=== PATIENT | female | born 1970 | race Caucasian/White ===

== ENCOUNTER → 2017-11-02 | Outpatient (CLI) | payer BC ==
[~2017-11-02] MED LIST: ACHD5005 PO; CEPH500C PO; CITA-105 PO; CPR500T PO; CTLP20T PO; CYCL-97 PO; DEPOPROVERA SHOT; ESCI10TA PO; ESCI20TA38 PO; FENO150C3 PO; FENO40TA4 PO; HYDR-3583 PO; HYDR1TAB PO; INDERAL PO; KLONOPIN; MEDR150D8 IM; METF500T4 PO; NF-ESOM40C PO; NITR100C3 PO; ONDA-42 SL; ONDA4TAB11; ONDA8TAB13 PO; ONDA8TAB9 PO; PANT20TA PO; PANT20TA2 PO; PHEN200T27 PO; PROM25TA14 PO; PROP20TA23 PO; PROP20TA5 PO; PROP40TA5 PO; SCR1T PO; SUCR1ORA PO; SUCR1ORA5 PO; SUCR1TAB23 PO; TRAZ150T42 PO; TRZ100T PO
--- NOTE | 2017-11-02 10:51 | Diagnostic Imaging Report ---
INDICATION: COUGH/ SOB COMPARISON: 12/20/2015 FINDINGS: Frontal and lateral views of the chest demonstrate normal heart size and pulmonary vascularity. The lungs are clear. There are no signs of infiltrate, pleural effusions or pneumothoraces. The visualized osseous structures show no acute abnormalities. IMPRESSION: 1. No acute process. No signs of infiltrates, effusions or pneumothoraces. Dictated by: Dictated on workstation # [id number]
== END ==
LOC: RAD 10:26
PROVIDERS: ATTEND Nurse Practitioner Family
DX: R05 Cough (principal)
CPT/HCPCS: 71046

== ENCOUNTER 2017-11-03 14:15 | Emergency (ER) | payer BC ==
[~2017-11-03] VITALS: Ht 167.6 cm; Wt 133.4 kg
[~2017-11-03 14:15] MED LIST changes: -ONDA4TAB11
--- OUTSIDE RECORDS SUMMARY | 2017-11-03 14:28 | XMS REPORT | Continuity of Care Document ---
Author Author [facility] Organization [facility] Address Unknown Phone Unavailable Allergies Active Description Code Type Severity Reaction Onset Reported/Identified Relationship to Patient Clinical Status Yes No Known Drug Allergies [id number] Drug Allergy Unknown N/A 03/12/2010 Medications There is no data. Problems Date Dx Coded Attending Type Code Diagnosis Diagnosed By 06/11/2013 SAUL FRASER Ot 276.51 DEHYDRATION 06/11/2013 SAUL FRSAER Ot 574.20 CHOLELITHIASIS NOS 06/11/2013 SAUL FRASER Ot 599.0 URIN TRACT INFECTION NOS 06/11/2013 SAUL FRASER Ot 787.02 NAUSEA ALONE 06/11/2013 SAUL FRASER Ot 789.01 ABDOMINAL PAIN, RIGHT UPPER QUADRANT 06/15/2013 SANDY MOULTON, NANCY S Ot 276.8 HYPOPOTASSEMIA 06/15/2013 ROMÁNNDTEVIN DO NANCY S Ot 300.00 ANXIETY STATE NOS 06/15/2013 ROMÁNNDTEVIN DO, NANCY S Ot 311 DEPRESSIVE DISORDER NEC 06/15/2013 SANDY DO NANCY S Ot 401.9 HYPERTENSION NOS 06/15/2013 ROMÁNNDTEVIN DO NANCY S Ot 530.81 ESOPHAGEAL REFLUX 06/15/2013 ROMÁNNDTEVIN MOULTON NANCY S Ot 536.2 PERSISTENT VOMITING 06/15/2013 ORENDER DO, NANCY S Ot 573.8 LIVER DISORDERS NEC 06/15/2013 ROMÁNNDER DO, NANCY S Ot 574.20 CHOLELITHIASIS NOS 06/15/2013 ROMÁNNDER DO NANCY S Ot 593.9 RENAL URETERAL DIS NOS 10/22/2014 Ot 511.9 10/22/2014 Ot 805.4 10/22/2014 Ot E000.8 10/22/2014 Ot E030 10/22/2014 Ot E819.9 10/22/2014 KARTHIK DANIEL Ot 574.20 10/22/2014 TRUNGKARTHIK ARORA WHEAT BUYER Ot 789.06 10/28/2014 LEONORA CHAIREZ, SHAQUILLE Hahn Ot 599.0 URIN TRACT INFECTION NOS 10/28/2014 LEONORA CHAIREZ, SHAQUILLE Hahn Ot 787.01 NAUSEA WITH VOMITING 10/29/2014 Ot 511.9 10/29/2014 Ot 805.4 10/29/2014 Ot E000.8 10/29/2014 Ot E030 10/29/2014 Ot E819.9 10/29/2014 MARÍAKARTHIK WHEAT BUYER Ot 574.20 10/29/2014 MARÍAKARTHIK WHEAT BUYER Ot 789.06 10/30/2014 DINA GREEN MD Ot 530.11 REFLUX ESOPHAGITIS 10/30/2014 DINA GREEN MD Ot 535.40 OTH SPECIFIED GASTRITIS,W/O MENTION OF H 10/30/2014 DINA GREEN MD Ot 553.3 DIAPHRAGMATIC HERNIA 11/05/2014 NANCY DELGADO DO S Ot 276.0 HYPEROSMOLALITY 11/05/2014 NICOLE DELGADO DOLINE S Ot 276.8 HYPOPOTASSEMIA 11/05/2014 NICOLE DELGADO DOLINE S Ot 535.50 UNSP GASTRITIS GASTRODUODENITIS W/O ME 11/05/2014 NANCY DELGADO DO S Ot 536.2 PERSISTENT VOMITING 01/23/2015 JERALD CHAIREZ, PACO Hdz Ot V72.84 08/09/2015 MARÍAKARTHIK WHEAT BUYER Ot 574.20 08/09/2015 MARÍA KARTHIK Hdz WHEAT BUYER Ot 789.06 08/09/2015 JERALD CHAIREZ, PACO Hdz Ot V72.84 12/04/2015 KATE UMANZOR APRN Ot R07.89 OTHER CHEST PAIN 12/20/2015 PRABHJOT SEN MD Ot E11.9 TYPE 2 DIABETES MELLITUS WITHOUT COMPLIC 12/20/2015 PRABHJOT SEN MD Ot R10.13 EPIGASTRIC PAIN 12/20/2015 PRABHJOT SEN MD Ot R11.2 NAUSEA WITH VOMITING, UNSPECIFIED 12/20/2015 MARÍA KARTHIK Hdz WHEAT BUYER Ot 574.20 12/20/2015 MARÍA KARTHIK Hdz WHEAT BUYER Ot 789.06 12/20/2015 JERALD CHAIREZ, PACO Hdz Ot V72.84 12/22/2015 KATE UMANZOR SPINNING MACHINE OPERATOR Ot E11.9 TYPE 2 DIABETES MELLITUS WITHOUT COMPLIC 12/22/2015 KATE UMANZOR SPINNING MACHINE OPERATOR Ot K29.70 GASTRITIS, UNSPECIFIED, WITHOUT BLEEDING 12/22/2015 KATE UMANZOR SPINNING MACHINE OPERATOR Ot R53.81 OTHER MALAISE 12/22/2015 KATE UMANZOR SPINNING MACHINE OPERATOR Ot Z79.899 OTHER INSIDE BARREL POLISHER (CURRENT) DRUG THERAPY 12/23/2015 MCKINLEY CHAIREZ, PRABHJOT D Ot E11.9 12/23/2015 MCKINLEY CHAIREZ, PRABHJOT D Ot R10.13 12/23/2015 MCKINLEY CHAIREZ, PRABHJOT D Ot R11.2 12/30/2015 MARÍA KARTHIK M WHEAT BUYER Ot 574.20 12/30/2015 MARI DANIELSA Wilder WHEAT BUYER Ot 789.06 12/30/2015 JERALD CHAIREZ, PACO Hdz Ot V72.84 01/09/2016 KATE UMANZOR SPINNING MACHINE OPERATOR Ot E11.9 01/09/2016 KATE UMANZOR SPINNING MACHINE OPERATOR Ot K29.70 01/09/2016 KATE UMANZOR SPINNING MACHINE OPERATOR Ot R53.81 01/09/2016 KATE UMANZOR SPINNING MACHINE OPERATOR Ot Z79.899 01/09/2016 MARÍA KARTHIK M WHEAT BUYER Ot 574.20 01/09/2016 MARÍA KARTHIK Wilder WHEAT BUYER Ot 789.06 01/09/2016 JERALD CHAIREZ, PACO Hdz Ot V72.84 01/11/2016 JOHN STRONG APRN Ot K29.70 07/07/2016 KARTHIK DANIEL M WHEAT BUYER Ot 574.20 CHOLELITHIASIS NOS 07/07/2016 KARTHIK DANIEL WHEAT BUYER Ot 789.06 ABDOMINAL PAIN, EPIGASTRIC 07/07/2016 JERALD CHAIREZ, PACO Hdz Ot V72.84 EXAM PRE-OPERATIVE NOS 07/07/2016 JOHN STRONG SPINNING MACHINE OPERATOR Ot K29.70 GASTRITIS, UNSPECIFIED, WITHOUT BLEEDING Procedures Code Description Performed By Performed On 51.23 06/15/2013 Results There is no data. Encounters ACCT No. Visit Date/Time Discharge Status Pt. Type Provider Facility Loc./Unit Complaint [id number] 01/10/2016 06:44:00 01/10/2016 23:59:59 CLS Outpatient JOHN STRONG SPINNING MACHINE OPERATOR [facility] CARD NAUSEA,VOMITTING, GASTROPARESIS [id number] 12/22/2015 09:18:00 12/22/2015 12:53:00 DIS Emergency KATE UMANZOR APRN [facility] ER R ARM TINGLING [id number] 12/20/2015 18:11:00 12/20/2015 20:52:00 DIS Emergency PRABHJOT SEN MD [facility] ER ABD PAIN [id number] 12/04/2015 10:42:00 12/04/2015 14:24:00 DIS Emergency KATE UMANZOR APRN [facility] ER CHEST PAIN [id number] 11/03/2014 17:42:00 11/05/2014 17:45:00 DIS Inpatient NANCY DELGADO DO S [facility] SURGICAL INTRACTABLE NAUSEA,VOMITING;GASTRITIS [id number] 10/29/2014 17:45:00 10/30/2014 12:43:00 DIS Outpatient DINA GREEN MD [facility] EPIGASTRIC PAIN;NAUSEA AND VOMITING [id number] 10/29/2014 14:52:00 10/29/2014 23:59:59 CLS Outpatient PACO MARQUES MD [facility] PREOP NAUSEA; ABD. PAIN [id number] 10/28/2014 12:48:00 10/28/2014 18:45:00 DIS Emergency LEONORA CHAIREZ, SHAQUILLE Hahn [facility] ER VOMITING [id number] 06/13/2013 15:54:00 06/15/2013 10:37:00 DIS Inpatient KAYLEY DELGADO DOQUELINE S [facility] SURGICAL ACUTE CHOLECYSTITIS,ABD PAIN,INTRACTABLE NAUSEA,VO [id number] 06/11/2013 15:44:00 06/11/2013 20:43:00 DIS Emergency SAUL FRASER [facility] ER ABD PAIN [id number] 06/09/2013 08:49:00 06/09/2013 23:59:59 CLS Outpatient KARTHIK DANIEL [facility] RAD EPIGASTRIC PAIN [id number] 05/26/2013 13:42:00 05/26/2013 23:59:59 CLS Outpatient [id number] 03/22/2013 14:09:00 03/22/2013 23:59:59 CLS Outpatient [id number] 02/03/2013 08:59:00 02/03/2013 23:59:59 CLS Outpatient [id number] 10/22/2014 07:37:00 Document Registration [id number] 10/22/2014 07:37:00 Document Registration [id number] 10/02/2009 12:59:00 Document Registration
[2017-11-03] MEDS ORDERED: ONDA4TAB11 (14:55)
[2017-11-03] MEDS ORDERED: KETOROLAC 30 MG/ML VIAL IVP STA (15:33)
[2017-11-03] MEDS ORDERED: NS IV 1000 ML 1,000 ML IV ONE ×2 (15:33→17:04)
[2017-11-03] MEDS ORDERED: FAMOTIDINE 20MG/2ML IV (PEPCID) IV STA (15:33)
--- NOTE | 2017-11-03 15:42 | ED Abdominal Pain ---
General Chief Complaint: Abdominal/GI Problems Stated Complaint: GASTRITIS/N/V/D Nursing Triage Note: AMB TO ROOM REPORTS THAT HER PMH OF GASTRITIS IS FLARING UP [facility] YESTERDAY MEDS NOT HELPING Sepsis Screen: No Definite Risk Source of Information: Patient, Family Exam Limitations: No Limitations History of Present Illness Date Seen by Provider: Nov 03, 2017 Time Seen by Provider: 15:15 Initial Comments Here with report of abdominal pain that has been worse over the last 3 days. Complains of multiple episodes of nausea and vomiting and states that she's been unable to keep anything down. She was seen by [facility] yesterday and started on what appears to be Zofran or similar but states that she is not able to keep that down and has been vomiting that. States that she feels real weak and overall does not feel well. Timing/Duration: 2-3 Days Severity/Quality: Moderate, Aching, Cramping Location: Periumbilical Radiation: RUQ, LUQ Activities at Onset: None Modifying Factors: Worsens With Eating, Improves With Vomiting Associated Symptoms: No Back Pain, No Chest Pain, No Diaphoresis, Fever/Chills , Nausea/Vomiting, No Shortness of Air, No Weakness Allergies and Home Medications Allergies Coded Allergies: No Known Drug Allergies (Unverified , 03/12/10) Home Medications Escitalopram Oxalate 20 Mg Tablet, 20 MG PO DAILY, (Reported) Escitalopram Oxalate 10 Mg Tablet, Unknown Dose PO DAILY, (Reported) Fenofibrate 40 Mg Tablet, Unknown Dose PO DAILY, (Reported) Medroxyprogesterone Acet 150 Mg/Ml Disp.syrin, 150 MG IM EVERY 3 MONTHS, ( Reported) Metformin HCl 500 Mg Tablet, 500 MG PO DAILY, (Reported) Ondansetron 8 Mg Tab.rapdis, 8 MG PO Q8H PRN for NAUSEA, (Reported) Ondansetron 4 Mg Tab.rapdis, (Reported) Pantoprazole Sodium 20 Mg Tablet.dr, 40 MG PO BID, #60 Prescribed by: NANCY DELGADO on 11/05/14 1638 Promethazine HCl 25 Mg Tablet, 25 MG PO Q6H PRN for NAUSEA/VOMITING, #20 Prescribed by: KATE UMANZOR on 12/22/15 1239 Propranolol Hcl 40 Mg Tablet, 40 MG PO BID, (Reported) Sucralfate 1 G/10 Ml Oral.susp, 2 TSP PO QID, (Reported) Sucralfate 1 Gm/10 Ml Oral.susp, 1 GM PO QID, #400 Prescribed by: KATE UMANZOR on 12/22/15 1239 Trazodone Hcl 100 Mg Tablet, 300 MG PO HS, (Reported) TAKES 3 (100MG) TABLETS Review of Systems Constitutional: see HPI, No chills, No fever EENTM: No Symptoms Reported Respiratory: No Symptoms Reported Cardiovascular: No Symptoms Reported Gastrointestinal: See HPI, Abdominal Pain, Denies Diarrhea, Nausea, Vomiting Genitourinary: Denies Discharge, Pain Musculoskeletal: No back pain Skin: no symptoms reported Psychiatric/Neurological: No Symptoms Reported All Other Systems Reviewed Negative Unless Noted: Yes Past Xvxdsyf-Zfzqgl-Yvpery Hx Patient Social History Alcohol Use: Denies Use Recreational Drug Use: No Recent Foreign Travel: No Contact w/Someone Who Travel: No Recent Infectious Disease Expo: No Recent Hopitalizations: Yes Immunizations Up To Date Tetanus Booster (TDap): Unknown Seasonal Allergies Seasonal Allergies: No Surgeries History of Surgeries: Yes (wrist,knees.ankle) Surgeries: Adenoidectomy, Appendectomy, Gallbladder, Orthopedic, Tonsillectomy Respiratory History of Respiratory Disorde: No Cardiovascular History of Cardiac Disorders: No Neurological History of Neurological Disord: No Reproductive System Hx Reproductive Disorders: No Genitourinary Genitourinary Disorders: UTI-Chronic Gastrointestinal History of Gastrointestinal Di: No Musculoskeletal History of Musculoskeletal Dis: Yes Musculoskeletal Disorders: Arthritis Endocrine History of Endocrine Disorders: Yes Endocrine Disorders: Diabetes, Non-Insulin dep Cancer History of Cancer: No Psychosocial History of Psychiatric Problem: Yes Behavioral Health Disorders: Depression Integumentary History of Skin or Integumenta: No Blood Transfusions History of Blood Disorders: No Reviewed Nursing Assessment Reviewed/Agree w Nursing PMH: Yes Family Medical History Significant Family History: No Pertinent Family Hx Family Medial History: Asthma 19 MOTHER (BREAST CANCER) Physical Exam Vital Signs VS - Last 72 Hours, by Label 11/03/17 11/03/17 14:47 18:53 Temp 98.9 Pulse 71 72 Resp 18 18 B/P (MAP) 170/100 (123) Pulse Ox 98 Capillary Refill : Less Than 3 Seconds General Appearance: WD/WN, no apparent distress HEENT: PERRL/EOMI, pharynx normal Neck: full range of motion, supple Respiratory: lungs clear, normal breath sounds Cardiovascular: regular rate, rhythm, no murmur Peripheral Pulses: 2+ Dorsalis Pedis (R), 2+ Left Dors-Pedis (L), 2+ Radial Pulses (R), 2+ Radial Pulses (L) Gastrointestinal: non tender, soft Extremities: non-tender, normal inspection Back: normal inspection, no CVA tenderness, no vertebral tenderness Neurologic/Psychiatric: alert, oriented x 3 Skin: normal color, warm/dry Progress/Results/Core Measures Results/Orders Lab Results Laboratory Tests Test 11/03/17 15:37 11/03/17 15:43 Range/Units Urine Color YELLOW Urine Clarity SLIGHTLY CLOUDY Urine pH 8 5-9 Urine Specific [place] 1.010 L 1.016-1.022 Urine Protein 2+ H NEGATIVE Urine Glucose (UA) NEGATIVE NEGATIVE Urine Ketones 2+ H NEGATIVE Urine Nitrite NEGATIVE NEGATIVE Urine Bilirubin NEGATIVE NEGATIVE Urine Urobilinogen 4 H NORMAL MG/DL Urine Leukocyte Esterase 1+ H NEGATIVE Urine RBC (Auto) NEGATIVE NEGATIVE Urine RBC NONE /HPF Urine WBC 2-5 /HPF Urine Squamous Epithelial Cells 10-25 H /HPF Urine Crystals NONE /LPF Urine Bacteria MODERATE H /HPF Urine Casts NONE /LPF Urine Mucus SMALL H /LPF Urine Culture Indicated NO White Blood Count 9.0 4.3-11.0 10^3/uL Red Blood Count 5.33 4.35-5.85 10^6/uL Hemoglobin 14.8 11.5-16.0 G/DL Hematocrit 42 35-52 % Mean Corpuscular Volume 79 L 80-99 FL Mean Corpuscular Hemoglobin 28 25-34 PG Mean Corpuscular Hemoglobin Concent 35 32-36 G/DL Red Cell Distribution Width 13.8 10.0-14.5 % Platelet Count 382 130-400 10^3/uL Mean Platelet Volume 10.5 H 7.4-10.4 FL Neutrophils (%) (Auto) 68 42-75 % Lymphocytes (%) (Auto) 22 12-44 % Monocytes (%) (Auto) 10 0-12 % Eosinophils (%) (Auto) 0 0-10 % Basophils (%) (Auto) 0 0-10 % Neutrophils # (Auto) 6.1 1.8-7.8 X 10^3 Lymphocytes # (Auto) 2.0 1.0-4.0 X 10^3 Monocytes # (Auto) 0.9 0.0-1.0 X 10^3 Eosinophils # (Auto) 0.0 0.0-0.3 10^3/uL Basophils # (Auto) 0.0 0.0-0.1 10^3/uL Sodium Level 142 135-145 MMOL/L Potassium Level 3.6 3.6-5.0 MMOL/L Chloride Level 106 98-107 MMOL/L Carbon Dioxide Level 21 21-32 MMOL/L Anion Gap 15 H 5-14 MMOL/L Blood Urea Nitrogen 12 7-18 MG/DL Creatinine 0.76 0.60-1.30 MG/DL Estimat Glomerular Filtration Rate > 60 BUN/Creatinine Ratio 16 Glucose Level 119 H 70-105 MG/DL Calcium Level 9.4 8.5-10.1 MG/DL Magnesium Level 2.0 1.8-2.4 MG/DL Total Bilirubin 0.6 0.1-1.0 MG/DL Aspartate Amino Transf (AST/SGOT) 20 5-34 U/L Alanine Aminotransferase (ALT/SGPT) 26 0-55 U/L Alkaline Phosphatase 66 40-136 U/L Total Protein 7.6 6.4-8.2 GM/DL Albumin 4.5 3.2-4.5 GM/DL Amylase Level 26 25-125 U/L Lipase 11 8-78 U/L My Orders Orders - PRABHJOT SEN MD Amylase (11/03/17 15:33) Cbc With Automated Diff (11/03/17 15:33) Comprehensive Metabolic Panel (11/03/17 15:33) Lipase (11/03/17 15:33) Magnesium (11/03/17 15:33) Ua Culture If Indicated (11/03/17 15:33) Saline Lock/Iv-Start (11/03/17 15:33) Ns Iv 1000 Ml (Sodium Chloride 0.9%) (11/03/17 15:33) Ondansetron Injection (Zofran Injectio (11/03/17 15:45) Famotidine Injection (Pepcid Injection) (11/03/17 15:33) Ketorolac Injection (Toradol Injection) (11/03/17 15:33) Ns Iv 1000 Ml (Sodium Chloride 0.9%) (11/03/17 17:04) Ondansetron Injection (Zofran Injectio (11/03/17 17:15) Medications Given in ED Current Medications Medications Dose Ordered Sig/[place] Route Start Time Stop Time Status Last Admin Dose Admin Ondansetron HCl 4 mg ONCE ONCE IVP 11/03/17 15:45 11/03/17 15:46 DC 11/03/17 15:48 4 MG Ondansetron HCl 4 mg ONCE ONCE IVP 11/03/17 17:15 11/03/17 17:16 DC 11/03/17 17:12 4 MG Sodium Chloride 1,000 ml @ 0 mls/hr Q0M ONCE IV 11/03/17 15:33 11/03/17 15:36 DC 11/03/17 15:51 1,000 MLS/HR Sodium Chloride 1,000 ml @ 0 mls/hr Q0M ONCE IV 11/03/17 17:04 11/03/17 17:05 DC 11/03/17 17:12 1,000 MLS/HR Vital Signs/I&O Vital Sign - Last 12Hours 11/03/17 11/03/17 14:47 18:53 Temp 98.9 Pulse 71 72 Resp 18 18 B/P (MAP) 170/100 (123) Pulse Ox 98 Blood Pressure Mean: 123 Progress Note : Progress Note Seen and evaluated. IV, labs, UA, normal saline 1 L bolus, Zofran 4 mg IV, Pepcid 20 mg IV and Toradol 30 mg IV ordered. Monitor patient. Repeat normal saline 1 L bolus and Zofran 4 mg IV. Monitor patient. 1759: Patient had feels a little better although still has some nausea. Labs are reviewed and did not show any significant abnormality other urine has contamination and ketones. Overall no indication for admission nor is there any indication for CT currently. We did discuss several options and ultimately we will attempt outpatient therapy with follow-up here if not improving within the next 24 hours and/or follow up with her doctor in the next one to 2 days as needed. Work note for 2 days. Discharged home with return precautions. Patient verbalize understanding instructions and agreement with plan. Departure Impression Impression: Primary Impression: Nausea and vomiting Qualified Codes: R11.2 - Nausea with vomiting, unspecified Additional Impression: Upper abdominal pain Disposition: HOME, SELF-CARE Condition: Stable Departure-Patient Inst. Referrals: NANCY DELGADO DO (PCP/Family) Primary Care Physician Patient Instructions: Acute Abdomen (Belly Pain), Adult (DC), Nausea and Vomiting, Adult (DC) Add. Discharge Instructions: All discharge instructions reviewed with patient and/or family. Voiced understanding. Clear liquid diet for 24 hours and then advance as tolerated. Follow up with your Dr. in one to 2 days for recheck. Return here within the next 24 hours if not improving and or earlier if worsening. Return for worse pain, fever, vomiting, weakness, breathing problems or other concerns as needed. Work/School Note: Work Release Form Date Seen in the Emergency Department: Nov 03, 2017 Return to Work: Nov 06, 2017 Restrictions: No Restrictions Copy Copies To 1: NANCY DELGADO TIMOTHY D MD Nov 03, 2017 15:42
[2017-11-03 15:43] LABS: BILIRUBIN,URINE NEGATIVE (NEGATIVE); CLARITY,URINE SLIGHTLY CLOUDY; COLOR,URINE YELLOW; GLUCOSE, URINE (UA) NEGATIVE (NEGATIVE); KETONES,URINE 2+ (NEGATIVE); LEUKOCYTE ESTERASE ,URINE 1+ (NEGATIVE); NITRITE,URINE NEGATIVE (NEGATIVE); PH,URINE 8 (5-9); PROTEIN,URINE 2+ (NEGATIVE); UROBILINOGEN,URINE 4 MG/DL (NORMAL)
[2017-11-03] MEDS ORDERED: ONDANSETRON 4 MG/2 ML (SDV) Z0FRAN IVP ONE ×2 (15:45→17:15)
[2017-11-03 15:51] LABS: BASOPHILS % (AUTO) 0 % (0-10); EOSINOPHILS % (AUTO) 0 % (0-10); HEMATOCRIT 42 % (35-52); HEMOGLOBIN 14.8 G/DL (11.5-16.0); LYMPHOCYTES % (AUTO) 22 % (12-44); MEAN CORPUSCULAR HEMOGLOBIN 28 PG (25-34); MEAN CORPUSCULAR HGB CONC 35 G/DL (32-36); MEAN CORPUSCULAR VOLUME 79 FL (80-99); MEAN PLATELET VOLUME 10.5 FL (7.4-10.4); MONOCYTES # (AUTO) 0.9 X 10^3 (0.0-1.0); MONOCYTES % (AUTO) 10 % (0-12); NEUTROPHILS # (AUTO) 6.1 X 10^3 (1.8-7.8); NEUTROPHILS % (AUTO) 68 % (42-75); PLATELET COUNT 382 10^3/uL (130-400); RED BLOOD COUNT 5.33 10^6/uL (4.35-5.85); RED CELL DISTRIBUTION WIDTH 13.8 % (10.0-14.5)
[2017-11-03 15:54] LABS: BACTERIA,URINE MODERATE /HPF
[2017-11-03 16:09] LABS: ALANINE AMINOTRANSFERASE 26 U/L (0-55); ALBUMIN 4.5 GM/DL (3.2-4.5); ALKALINE PHOSPHATASE 66 U/L (40-136); AMYLASE 26 U/L (25-125); BILIRUBIN,TOTAL 0.6 MG/DL (0.1-1.0); BUN/CREATININE RATIO 16; CALCIUM 9.4 MG/DL (8.5-10.1); CARBON DIOXIDE 21 MMOL/L (21-32); CHLORIDE 106 MMOL/L (98-107); CREATININE SERUM 0.76 MG/DL (0.60-1.30); GFR ESTIMATED > 60; GLUCOSE 119 MG/DL (70-105); LIPASE 11 U/L (8-78); POTASSIUM 3.6 MMOL/L (3.6-5.0); SODIUM 142 MMOL/L (135-145); TOTAL PROTEIN 7.6 GM/DL (6.4-8.2)
[2017-11-03 18:53] VITALS: BP 176/118
== END 2017-11-03 18:52 | disposition home or self-care (01) ==
LOC: EDUNIT# 14:15 → ER 14:17
DX: R11.2 Nausea with vomiting, unspecified (principal); R10.11 Right upper quadrant pain; R10.12 Left upper quadrant pain; E11.9 Type 2 diabetes mellitus without complications; F32.9 Major depressive disorder, single episode, unspecified; Z80.3 Family history of malignant neoplasm of breast; Z87.440 Personal history of urinary (tract) infections; Z90.89 Acquired absence of other organs; Z90.49 Acquired absence of other specified parts of digestive tract; Z79.84 Long term (current) use of oral hypoglycemic drugs; Z87.19 Personal history of other diseases of the digestive system
CPT/HCPCS: 36415; 80053; 81000; 82150; 83690; 83735; 85025; 96361; 96374; 96375; 96376

== ENCOUNTER 2018-03-02 09:53 | Emergency (ER) | payer BC ==
[~2018-03-02] VITALS: Ht 167.6 cm; Wt 136.1 kg
[~2018-03-02 09:53] MED LIST changes: -METF500T4 PO; +METF500T5 PO; +ONDA4TAB11
--- OUTSIDE RECORDS SUMMARY | 2018-03-02 10:00 | XMS REPORT | Continuity of Care Document ---
Author Author [facility] Organization [facility] Address Unknown Phone Unavailable Allergies Active Description Code Type Severity Reaction Onset Reported/Identified Relationship to Patient Clinical Status Yes No Known Drug Allergies [id number] Drug Allergy Unknown N/A 03/12/2010 Medications There is no data. Problems Date Dx Coded Attending Type Code Diagnosis Diagnosed By 06/11/2013 SAUL FRASER Ot 276.51 DEHYDRATION 06/11/2013 SAUL FRASER Ot 574.20 CHOLELITHIASIS NOS 06/11/2013 SAUL FRASER Ot 599.0 URIN TRACT INFECTION NOS 06/11/2013 SAUL FRASER Ot 787.02 NAUSEA ALONE 06/11/2013 SAUL FRASER Ot 789.01 ABDOMINAL PAIN, RIGHT UPPER QUADRANT 06/15/2013 SANDY MOULTON, GLORIA S Ot 276.8 HYPOPOTASSEMIA 06/15/2013 ROMÁNNDTEVIN DO GLORIA S Ot 300.00 ANXIETY STATE NOS 06/15/2013 ROMÁNNDTEVIN DO, GLORIA S Ot 311 DEPRESSIVE DISORDER NEC 06/15/2013 SANDY DO GLORIA S Ot 401.9 HYPERTENSION NOS 06/15/2013 ROMÁNNDTEVIN DO GLORIA S Ot 530.81 ESOPHAGEAL REFLUX 06/15/2013 ROMÁNNDTEVIN MOULTON GLORIA S Ot 536.2 PERSISTENT VOMITING 06/15/2013 ORENDER DO, GLORIA S Ot 573.8 LIVER DISORDERS NEC 06/15/2013 ROMÁNNDER DO, GLORIA S Ot 574.20 CHOLELITHIASIS NOS 06/15/2013 ROMÁNNDER DO GLORIA S Ot 593.9 RENAL URETERAL DIS NOS 10/22/2014 Ot 511.9 10/22/2014 Ot 805.4 10/22/2014 Ot E000.8 10/22/2014 Ot E030 10/22/2014 Ot E819.9 10/22/2014 KARTHIK DANIEL Ot 574.20 10/22/2014 TRUNGKARTHIK ARORA PRIOR AUTHORIZATION NURSE Ot 789.06 10/28/2014 LEONORA CHAIREZ, SHAQUILLE Hahn Ot 599.0 URIN TRACT INFECTION NOS 10/28/2014 LEONORA CHAIREZ, SHAQUILLE Hahn Ot 787.01 NAUSEA WITH VOMITING 10/29/2014 Ot 511.9 10/29/2014 Ot 805.4 10/29/2014 Ot E000.8 10/29/2014 Ot E030 10/29/2014 Ot E819.9 10/29/2014 MARÍAKARTHIK PRIOR AUTHORIZATION NURSE Ot 574.20 10/29/2014 MARÍAKARTHIK PRIOR AUTHORIZATION NURSE Ot 789.06 10/30/2014 DINA GREEN MD Ot 530.11 REFLUX ESOPHAGITIS 10/30/2014 DINA GREEN MD Ot 535.40 OTH SPECIFIED GASTRITIS,W/O MENTION OF H 10/30/2014 DINA GREEN MD Ot 553.3 DIAPHRAGMATIC HERNIA 11/05/2014 GLORIA TEIXEIRA DO S Ot 276.0 HYPEROSMOLALITY 11/05/2014 NICOLE TEIXEIRA DOLINE S Ot 276.8 HYPOPOTASSEMIA 11/05/2014 NICOLE TEIXEIRA DOLINE S Ot 535.50 UNSP GASTRITIS GASTRODUODENITIS W/O ME 11/05/2014 GLORIA TEIXEIRA DO S Ot 536.2 PERSISTENT VOMITING 01/23/2015 JERALD CHAIREZ, PACO Hdz Ot V72.84 08/09/2015 MARÍAKARTHIK PRIOR AUTHORIZATION NURSE Ot 574.20 08/09/2015 MARÍA KARTHIK Hdz PRIOR AUTHORIZATION NURSE Ot 789.06 08/09/2015 JERALD CHAIREZ, PACO Hdz Ot V72.84 12/04/2015 KATE UMAZNOR APRN Ot R07.89 OTHER CHEST PAIN 12/20/2015 PRABHJOT SEN MD Ot E11.9 TYPE 2 DIABETES MELLITUS WITHOUT COMPLIC 12/20/2015 PRABHJOT SEN MD Ot R10.13 EPIGASTRIC PAIN 12/20/2015 PRABHJOT SEN MD Ot R11.2 NAUSEA WITH VOMITING, UNSPECIFIED 12/20/2015 MARÍA KARTHIK M PRIOR AUTHORIZATION NURSE Ot 574.20 12/20/2015 VANALINA, KARTHIK M PRIOR AUTHORIZATION NURSE Ot 789.06 12/20/2015 JERALD CHAIREZ, PACO Hdz Ot V72.84 12/22/2015 KATE UMANZOR CINDER WORKER Ot E11.9 TYPE 2 DIABETES MELLITUS WITHOUT COMPLIC 12/22/2015 KATE UMANZOR CINDER WORKER Ot K29.70 GASTRITIS, UNSPECIFIED, WITHOUT BLEEDING 12/22/2015 KATE UMANZOR CINDER WORKER Ot R53.81 OTHER MALAISE 12/22/2015 KATE UMANZOR CINDER WORKER Ot Z79.899 OTHER INVENTORY AUDITOR (CURRENT) DRUG THERAPY 12/23/2015 MCKINLEY CHAIREZ, PRABHJOT D Ot E11.9 12/23/2015 MCKINLEY CHAIREZ, PRABHJOT D Ot R10.13 12/23/2015 MCKINLEY CHAIREZ, PRABHJOT D Ot R11.2 12/30/2015 MARÍA KARTHIK M PRIOR AUTHORIZATION NURSE Ot 574.20 12/30/2015 VANALINA KARTHIK M PRIOR AUTHORIZATION NURSE Ot 789.06 12/30/2015 JERALD CHAIREZ, PACO Hdz Ot V72.84 01/09/2016 KATE UMANZOR CINDER WORKER Ot E11.9 01/09/2016 KATE UMANZOR CINDER WORKER Ot K29.70 01/09/2016 KATE UMANZOR CINDER WORKER Ot R53.81 01/09/2016 KATE UMANZOR CINDER WORKER Ot Z79.899 01/09/2016 VANALINA KARTHIK M PRIOR AUTHORIZATION NURSE Ot 574.20 01/09/2016 VANALINA KARTHIK M PRIOR AUTHORIZATION NURSE Ot 789.06 01/09/2016 JERALD CHAIREZ, PACO Hdz Ot V72.84 01/11/2016 JOHN STRONG CINDER WORKER Ot K29.70 07/07/2016 VANBECELAERE, KARTHIK M PRIOR AUTHORIZATION NURSE Ot 574.20 CHOLELITHIASIS NOS 07/07/2016 VANKRISSYELAEKARTHIK MANDEL M PRIOR AUTHORIZATION NURSE Ot 789.06 ABDOMINAL PAIN, EPIGASTRIC 07/07/2016 JERALD CHAIREZ, PACO Hdz Ot V72.84 EXAM PRE-OPERATIVE NOS 07/07/2016 JOHN STRONG CINDER WORKER Ot K29.70 GASTRITIS, UNSPECIFIED, WITHOUT BLEEDING 11/03/2017 BHAVNA BENITEZ CINDER WORKER Ot R05 COUGH 11/03/2017 BHAVNA BENITEZ R CINDER WORKER Ot R05 COUGH 11/03/2017 PRABHJOT SEN MD, Ot E11.9 TYPE 2 DIABETES MELLITUS WITHOUT COMPLIC 11/03/2017 PRABHJOT SEN MD, Ot F32.9 MAJOR DEPRESSIVE DISORDER, SINGLE EPISOD 11/03/2017 PRABHJOT SEN MD Ot R10.11 RIGHT UPPER QUADRANT PAIN 11/03/2017 PRABHJOT SEN MD Ot R10.12 LEFT UPPER QUADRANT PAIN 11/03/2017 PRABHJOT SEN MD Ot R11.2 NAUSEA WITH VOMITING, UNSPECIFIED 11/03/2017 PRABHJOT SEN MD, Ot Z79.84 LONGTERM (CURRENT) USE OF ORAL HYPOGLYC 11/03/2017 PRABHJOT SEN MD Ot Z80.3 FAMILY HISTORY OF MALIGNANT NEOPLASM OF 11/03/2017 PRABHJOT SEN MD Ot Z87.19 PERSONAL HISTORY OF OTHER DISEASES OF 11/03/2017 PRABHJOT SEN MD, Ot Z87.440 PERSONAL HISTORY OF URINARY (TRACT) INFE 11/03/2017 PRABHJOT SEN MD Ot Z90.49 ACQUIRED ABSENCE OF OTHER SPECIFIED PART 11/03/2017 PRABHJOT SEN MD Ot Z90.89 ACQUIRED ABSENCE OF OTHER ORGANS 11/05/2017 PRABHJOT SEN MD Ot E11.9 TYPE 2 DIABETES MELLITUS WITHOUT COMPLIC 11/05/2017 PRABHJOT SEN MD, Ot F32.9 MAJOR DEPRESSIVE DISORDER, SINGLE EPISOD 11/05/2017 PRABHJOT SEN MD Ot R10.11 RIGHT UPPER QUADRANT PAIN 11/05/2017 PRABHJOT SEN MD Ot R10.12 LEFT UPPER QUADRANT PAIN 11/05/2017 PRABHJOT SEN MD Ot R11.2 NAUSEA WITH VOMITING, UNSPECIFIED 11/05/2017 PRABHJOT SEN MD Ot Z79.84 INVENTORY AUDITOR (CURRENT) USE OF ORAL HYPOGLYC 11/05/2017 PRABHJOT SEN MD Ot Z80.3 FAMILY HISTORY OF MALIGNANT NEOPLASM OF 11/05/2017 PRABHJOT SEN MD Ot Z87.19 PERSONAL HISTORY OF OTHER DISEASES OF 11/05/2017 PRABHJOT SEN MD Ot Z87.440 PERSONAL HISTORY OF URINARY (TRACT) INFE 11/05/2017 PRABHJOT SEN MD Ot Z90.49 ACQUIRED ABSENCE OF OTHER SPECIFIED PART 11/05/2017 PRABHJOT SEN MD Ot Z90.89 ACQUIRED ABSENCE OF OTHER ORGANS 11/11/2017 BHAVNA BENITEZ CINDER WORKER Ot R05 COUGH 02/11/2018 SHAHBAZKRISSYKARTHIK ARORA PRIOR AUTHORIZATION NURSE Ot 574.20 CHOLELITHIASIS NOS 02/11/2018 MARÍA AKRTHIK Hdz PRIOR AUTHORIZATION NURSE Ot 789.06 ABDOMINAL PAIN, EPIGASTRIC 02/11/2018 JERALD CHAIREZ, PACO Hdz Ot V72.84 EXAM PRE-OPERATIVE NOS 02/11/2018 JOHN STRONG CINDER WORKER Ot K29.70 GASTRITIS, UNSPECIFIED, WITHOUT BLEEDING 02/11/2018 BHAVNA BENITEZ CINDER WORKER Ot R05 COUGH Procedures Code Description Performed By Performed On 51.23 LAPAROSCOPIC CHOLECYSTECTOMY 06/15/2013 Results Test Result Range Complete urinalysis with reflex to culture - 11/03/17 15:37 Urine color determination YELLOW NRG Urine clarity determination SLIGHTLY CLOUDY NRG Urine pH measurement by test strip 8 5-9 Specific gravity of urine by test strip 1.010 1.016- 1.022 Urine protein assay by test strip, semi-quantitative 2+ NEGATIVE Urine glucose detection by automated test strip NEGATIVE NEGATIVE Erythrocytes detection in urine sediment by light microscopy NEGATIVE NEGATIVE Urine ketones detection by automated test strip 2+ NEGATIVE Urine nitrite detection by test strip NEGATIVE NEGATIVE Urine total bilirubin detection by test strip NEGATIVE NEGATIVE Urine urobilinogen measurement by automated test strip (mass/volume) 4 mg/dL NORMAL Urine leukocyte esterase detection by dipstick 1+ NEGATIVE Automated urine sediment erythrocyte count by microscopy (number/high power field) NONE NRG Automated urine sediment leukocyte count by microscopy (number/high power field ) [HPF] NRG Bacteria detection in urine sediment by light microscopy MODERATE NRG Squamous epithelial cells detection in urine sediment by light microscopy 10-25 NRG Crystals detection in urine sediment by light microscopy NONE NRG Casts detection in urine sediment by light microscopy NONE NRG Mucus detection in urine sediment by light microscopy SMALL NRG Complete urinalysis with reflex to culture NO NRG Complete blood count (CBC) with automated white blood cell (WBC) differential - 11/03/17 15:43 Blood leukocytes automated count (number/volume) 9.0 10*3/uL 4.3-11.0 Blood erythrocytes automated count (number/volume) 5.33 10*6/uL 4.35-5.85 Venous blood hemoglobin measurement (mass/volume) 14.8 g/dL 11.5-16.0 Blood hematocrit (volume fraction) 42 % 35-52 Automated erythrocyte mean corpuscular volume 79 [foz_us] 80-99 Automated erythrocyte mean corpuscular hemoglobin (mass per erythrocyte) 28 pg 25-34 Automated erythrocyte mean corpuscular hemoglobin concentration measurement ( mass/volume) 35 g/dL 32-36 Automated erythrocyte distribution width ratio 13.8 % 10.0-14.5 Automated blood platelet count (count/volume) 382 10*3/uL 130-400 Automated blood platelet mean volume measurement 10.5 [foz_us] 7.4-10.4 Automated blood neutrophils/100 leukocytes 68 % 42-75 Automated blood lymphocytes/100 leukocytes 22 % 12-44 Blood monocytes/100 leukocytes 10 % 0-12 Automated blood eosinophils/100 leukocytes 0 % 0-10 Automated blood basophils/100 leukocytes 0 % 0-10 Blood neutrophils automated count (number/volume) 6.1 10*3 1.8-7.8 Blood lymphocytes automated count (number/volume) 2.0 10*3 1.0-4.0 Blood monocytes automated count (number/volume) 0.9 10*3 0.0-1.0 Automated eosinophil count 0.0 10*3/uL 0.0-0.3 Automated blood basophil count (count/volume) 0.0 10*3/uL 0.0-0.1 Comprehensive metabolic panel - 11/03/17 15:43 Serum or plasma sodium measurement (moles/volume) 142 mmol/L 135-145 Serum or plasma potassium measurement (moles/volume) 3.6 mmol/L 3.6-5.0 Serum or plasma chloride measurement (moles/volume) 106 mmol/L 98-107 Carbon dioxide 21 mmol/L 21-32 Serum or plasma anion gap determination (moles/volume) 15 mmol/L 5-14 Serum or plasma urea nitrogen measurement (mass/volume) 12 mg/dL 7-18 Serum or plasma creatinine measurement (mass/volume) 0.76 mg/dL 0.60-1.30 Serum or plasma urea nitrogen/creatinine mass ratio 16 NRG Serum or plasma creatinine measurement with calculation of estimated glomerular filtration rate > NRG Serum or plasma glucose measurement (mass/volume) 119 mg/dL 70-105 Serum or plasma calcium measurement (mass/volume) 9.4 mg/dL 8.5-10.1 Serum or plasma total bilirubin measurement (mass/volume) 0.6 mg/dL 0.1-1.0 Serum or plasma alkaline phosphatase measurement (enzymatic activity/volume) 66 U/L 40-136 Serum or plasma aspartate aminotransferase measurement (enzymatic activity/ volume) 20 U/L 5-34 Serum or plasma alanine aminotransferase measurement (enzymatic activity/volume ) 26 U/L 0-55 Serum or plasma protein measurement (mass/volume) 7.6 g/dL 6.4-8.2 Serum or plasma albumin measurement (mass/volume) 4.5 g/dL 3.2-4.5 Magnesium - 11/03/17 15:43 Magnesium 2.0 mg/dL 1.8-2.4 Serum or plasma amylase measurement (enzymatic activity/volume) - 11/03/17 15: 43 Serum or plasma amylase measurement (enzymatic activity/volume) 26 U /L 25-125 Lipase - 11/03/17 15:43 Lipase 11 U/L 8-78 Encounters ACCT No. Visit Date/Time Discharge Status Pt. Type Provider Facility Loc./Unit Complaint [id number] 11/03/2017 14:17:00 11/03/2017 18:52:00 DIS Emergency PRABHJOT SEN MD [facility] ER GASTRITIS/N/V/D [id number] 11/02/2017 10:26:00 11/02/2017 23:59:59 CLS Outpatient BHAVNA BENITEZ CINDER WORKER [facility] RAD COUGH,SOB [id number] 01/10/2016 06:44:00 01/10/2016 23:59:59 CLS Outpatient JOHN STRONG [employer]INDER WORKER [facility] CARD NAUSEA,VOMITTING, GASTROPARESIS [id number] 12/22/2015 09:18:00 12/22/2015 12:53:00 DIS Emergency KATE UMANZOR [employer]INDER WORKER [facility] ER R ARM [place] [id number] 12/20/2015 18:11:00 12/20/2015 20:52:00 DIS Emergency PRABHJOT SEN MD [facility] ER ABD PAIN [id number] 12/04/2015 10:42:00 12/04/2015 14:24:00 DIS Emergency KATE UMANZOR APRN [facility] ER CHEST PAIN [id number] 11/03/2014 17:42:00 11/05/2014 17:45:00 DIS Inpatient ORENDER DO, GLORIA S [facility] SURGICAL INTRACTABLE NAUSEA,VOMITING;GASTRITIS [id number] 10/29/2014 17:45:00 10/30/2014 12:43:00 DIS [facility];NAUSEA AND VOMITING [id number] 10/29/2014 14:52:00 10/29/2014 23:59:59 CLS Outpatient PACO MARQUES MD [facility] PREOP NAUSEA; ABD. PAIN [id number] 10/28/2014 12:48:00 10/28/2014 18:45:00 DIS Emergency SHAQUILLE LEA MD [facility] ER VOMITING [id number] 06/13/2013 15:54:00 06/15/2013 10:37:00 DIS Inpatient RAYER DO, GLORIA S [facility] SURGICAL ACUTE CHOLECYSTITIS,ABD PAIN,INTRACTABLE NAUSEA,VO [id number] 06/11/2013 15:44:00 06/11/2013 20:43:00 DIS Emergency SAUL FRASER [facility] ER ABD PAIN [id number] 06/09/2013 08:49:00 06/09/2013 23:59:59 CLS Outpatient KARTHIK DANIEL [facility] RAD EPIGASTRIC PAIN [id number] 05/26/2013 13:42:00 05/26/2013 23:59:59 CLS Outpatient [id number] 03/22/2013 14:09:00 03/22/2013 23:59:59 CLS Outpatient [id number] 02/03/2013 08:59:00 02/03/2013 23:59:59 CLS Outpatient [id number] 10/22/2014 07:37:00 Document Registration [id number] 10/22/2014 07:37:00 Document Registration [id number] 10/02/2009 12:59:00 Document Registration 05/24/18 01/18/2018 15:30:47 01/18/2018 23:59:59 CLS Outpatient Gloria Teixeira
[2018-03-02] MEDS ORDERED: NS IV 1000 ML 1,000 ML IV ONE (10:42)
[2018-03-02] MEDS ORDERED: ONDANSETRON 4 MG/2 ML (SDV) Z0FRAN IVP ONE (10:45)
[2018-03-02 10:50] LABS: BASOPHILS % (AUTO) 0 % (0-10); EOSINOPHILS % (AUTO) 0 % (0-10); HEMATOCRIT 44 % (35-52); HEMOGLOBIN 15.6 G/DL (11.5-16.0); LYMPHOCYTES % (AUTO) 20 % (12-44); MEAN CORPUSCULAR HEMOGLOBIN 28 PG (25-34); MEAN CORPUSCULAR HGB CONC 35 G/DL (32-36); MEAN CORPUSCULAR VOLUME 78 FL (80-99); MONOCYTES # (AUTO) 0.8 X 10^3 (0.0-1.0); MONOCYTES % (AUTO) 8 % (0-12); NEUTROPHILS # (AUTO) 7.2 X 10^3 (1.8-7.8); NEUTROPHILS % (AUTO) 72 % (42-75); PLATELET COUNT 386 10^3/uL (130-400); RED BLOOD COUNT 5.65 10^6/uL (4.35-5.85); RED CELL DISTRIBUTION WIDTH 14.2 % (10.0-14.5); WHITE BLOOD COUNT 9.9 10^3/uL (4.3-11.0)
[2018-03-02 11:12] LABS: ALANINE AMINOTRANSFERASE 24 U/L (0-55); ALBUMIN 4.7 GM/DL (3.2-4.5); ALKALINE PHOSPHATASE 69 U/L (40-136); BILIRUBIN,TOTAL 1.1 MG/DL (0.1-1.0); BUN/CREATININE RATIO 15; CALCIUM 9.9 MG/DL (8.5-10.1); CARBON DIOXIDE 20 MMOL/L (21-32); CHLORIDE 107 MMOL/L (98-107); GFR ESTIMATED > 60; GLUCOSE 144 MG/DL (70-105); LIPASE 15 U/L (8-78); POTASSIUM 3.5 MMOL/L (3.6-5.0); SODIUM 140 MMOL/L (135-145); TOTAL PROTEIN 7.6 GM/DL (6.4-8.2)
[2018-03-02] MEDS ORDERED: fentaNYL INJECTION 100 MCG/2 ML AMP IVP ONE ×2 (11:15→12:45)
[2018-03-02 11:28] LABS: BILIRUBIN,URINE NEGATIVE (NEGATIVE); CLARITY,URINE SLIGHTLY CLOUDY; COLOR,URINE YELLOW; GLUCOSE, URINE (UA) NEGATIVE (NEGATIVE); KETONES,URINE 2+ (NEGATIVE); LEUKOCYTE ESTERASE ,URINE 1+ (NEGATIVE); NITRITE,URINE NEGATIVE (NEGATIVE); PH,URINE 8 (5-9); PROTEIN,URINE 1+ (NEGATIVE); UROBILINOGEN,URINE 4 MG/DL (NORMAL)
[2018-03-02 11:38] LABS: BACTERIA,URINE FEW /HPF
[2018-03-02 11:39] LABS: AMORPHOUS SEDIMENT,UR LARGE AMOR PHOSPHATE /LPF
[2018-03-02] MEDS ORDERED: CATHETER FLUSH 10 ML SYR IV PRN (13:15)
[2018-03-02] MEDS ORDERED: NS 250 ML (IVPB) BAG IV ONE (13:15)
[2018-03-02] MEDS ORDERED: IOHEXOL 350 MG/ML 100 ML (OMNIPAQUE 350) VIAL IV ONE (13:15)
--- NOTE | 2018-03-02 14:06 | Diagnostic Imaging Report ---
PROCEDURE: CT abdomen and pelvis with contrast. TECHNIQUE: Multiple contiguous axial images were obtained through the abdomen and pelvis after administration of intravenous contrast. INDICATION: Abdominal pain. Pre-CT abdomen/pelvis exam of 10/28/2014 failed to show any sign of an acute abnormality. On this study, the liver is homogeneous and not enlarged. The liver may be of a somewhat lower density than usually seen. This appearance does suggest fatty metamorphosis. The spleen, pancreas, adrenals, kidneys, aorta and inferior cava show no sign of an acute abnormality. The small benign-appearing nodule associated with the left adrenal gland seen previously is again evident and no different. Also as on the prior exam the gallbladder is surgically absent. The stomach is not well-distended and consequently difficult to assess. The images through the pelvis show that in the interval since the prior study a well-circumscribed 4.8 x 6.3 CM area of low density has developed in the left adnexa. Most likely this is a cyst arising from the left ovary. There is also a more complex low density lesion in the right adnexa measuring 4.0 x 4.6 MM. This too probably represents an ovarian cyst although it may be complicated by infection and/or hemorrhage. The uterus itself is generally unremarkable. There is diverticulosis of the sigmoid colon but there is no sign of an acute diverticulitis. The appendix is not well-visualized and appears to be surgically absent. The urinary bladder is grossly unremarkable. The bone windows show no sign of a fracture or of a destructive lesion. The lung bases are clear. There is no obvious breast mass. According to our records the patient has not had a mammogram. If the patient has had a recent (within the last year) mammogram elsewhere, then no further imaging will be necessary. However if the patient has not had a recent mammogram, mammography should be obtained. IMPRESSION: 1. In the interval since the prior exam bilateral ovaries cysts have developed. The cyst on the right appears to be slightly complicated by infection and/or hemorrhage. Ultrasound would be recommended for further evaluation of both these findings. 2. There is no acute abnormality of the abdomen or pelvis noted otherwise. 3. There is no obvious breast mass. Recommendations as above. Dictated by: Dictated on workstation # [id number]
[2018-03-02] MEDS ORDERED: KETOROLAC 30 MG/ML VIAL IVP ONE (14:45)
--- NOTE | 2018-03-02 15:39 | Diagnostic Imaging Report ---
INDICATION: Bilateral ovarian cysts noted on recent CT. TECHNIQUE: Multiple real-time grayscale images were obtained of the pelvis in various projections endovaginally. Transabdominal imaging was also performed. COMPARISON: Comparison is made with CT study from 03/02/2018. FINDINGS: The uterus measures 7.7 x 5.2 x 3.5 cm. Endometrium is 6 mm in thickness. No myometrial mass is identified. There is a complex cystic mass with internal septations involving the left ovary measuring 4.9 x 5.9 x 4.2 cm. This does correspond with the CT abnormality. The right adnexa also demonstrate complex septated cystic mass measuring 4.8 x 4.9 x 5.0 cm, also accounting for the CT abnormality. No free fluid is seen. IMPRESSION: Bilateral complex septated cystic masses involving the adnexa, corresponding with the CT abnormality. While these could represent complex ovarian cysts, possibility of cystic neoplasm cannot be entirely excluded. If no surgical intervention is performed, close follow-up to confirm stability is recommended. Dictated by: Dictated on workstation # [id number]
[2018-03-02] MEDS ORDERED: CEPH-507 PO (16:08)
[2018-03-02] MEDS ORDERED: HYDR-3812 PO (16:08)
[2018-03-02] MEDS ORDERED: ONDA4TAB8 SL (16:08)
--- NOTE | 2018-03-02 16:09 | ED Abdominal Pain ---
General Chief Complaint: Abdominal/GI Problems Stated Complaint: ABD PAIN Nursing Triage Note: ARRIVED VIA AMB TO ROOM 05 WITH COMPLAINTS OF GASTRITIS SINCE WEDNESDAY. N/V/D. Sepsis Screen: No Definite Risk Source of Information: Patient, Old Records Exam Limitations: No Limitations History of Present Illness Date Seen by Provider: March 02, 2018 Time Seen by Provider: 10:43 Initial Comments This 47-year-old woman presents to the emergency room with nausea, vomiting and diarrhea since Wednesday. She also reports excessive belching. She was seen in November for similar symptoms. She currently takes Protonix. She denies and takes Depo-Provera. She denies any blood in her emesis or stool. She has diffuse tenderness to palpation which is greater in the lower quadrants. The diarrhea portion of her symptoms has only been present this morning. She is afebrile. Pain is fairly constant. She denies any constipation. She does have history of diverticulosis, gastritis, esophagitis and hiatal hernia. Allergies and Home Medications Allergies Coded Allergies: No Known Drug Allergies (Unverified , 03/12/10) Home Medications Cephalexin 500 Mg Capsule, 500 MG PO QID Prescribed by: SHAQUILLE ROSE on 03/02/18 1608 Escitalopram Oxalate 20 Mg Tablet, 20 MG PO DAILY, (Reported) Escitalopram Oxalate 10 Mg Tablet, Unknown Dose PO DAILY, (Reported) Fenofibrate 40 Mg Tablet, Unknown Dose PO DAILY, (Reported) Hydrocodone/Acetaminophen 1 Each Tablet, 1 EACH PO Q4H Prescribed by: SHAQUILLE ROSE on 03/02/18 1608 Medroxyprogesterone Acet 150 Mg/Ml Disp.syrin, 150 MG IM EVERY 3 MONTHS, ( Reported) Metformin HCl 500 Mg Tablet, 500 MG PO DAILY, (Reported) Ondansetron 8 Mg Tab.rapdis, 8 MG PO Q8H PRN for NAUSEA, (Reported) Ondansetron 4 Mg Tab.rapdis, 4 MG SL Q4H PRN for NAUSEA/VOMITING-1ST LINE Prescribed by: SHAQUILLE ROSE on 03/02/18 1608 Pantoprazole Sodium 20 Mg Tablet.dr, 40 MG PO BID Prescribed by: NANCY DELGADO on 11/05/14 1638 Promethazine HCl 25 Mg Tablet, 25 MG PO Q6H PRN for NAUSEA/VOMITING Prescribed by: KATE UMANZOR on 12/22/15 1239 Propranolol Hcl 40 Mg Tablet, 40 MG PO BID, (Reported) Sucralfate 1 G/10 Ml Oral.susp, 2 TSP PO QID, (Reported) Sucralfate 1 Gm/10 Ml Oral.susp, 1 GM PO QID Prescribed by: KATE UMANZOR on 12/22/15 1239 Trazodone Hcl 100 Mg Tablet, 300 MG PO HS, (Reported) TAKES 3 (100MG) TABLETS Patient Home Medication List Home Medication List Reviewed: Yes Review of Systems Constitutional: no symptoms reported EENTM: No Symptoms Reported Respiratory: No Symptoms Reported Cardiovascular: No Symptoms Reported Gastrointestinal: See HPI Genitourinary: No Symptoms Reported Musculoskeletal: no symptoms reported Skin: no symptoms reported Psychiatric/Neurological: No Symptoms Reported Endocrine: No Symptoms Reported Past Ifqcjta-Tnztlj-Ysoomi Hx Patient Social History Alcohol Use: Rarely Uses Recreational Drug Use: No Smoking Status: Never a Smoker Recent Foreign Travel: No Contact w/Someone Who Travel: No Recent Infectious Disease Expo: No Recent Hopitalizations: Yes Immunizations Up To Date Tetanus Booster (TDap): Unknown Seasonal Allergies Seasonal Allergies: No Past Medical History Surgeries: Yes (wrist,knees.ankle) Abdominal (Endoscopy), Adenoidectomy, Appendectomy, Gallbladder, Orthopedic, Tonsillectomy Respiratory: No Cardiac: No Neurological: No Reproductive Disorders: No UTI-Chronic Gastrointestinal: Yes (History of gastritis and esophagitis) Diverticulosis, Hiatal Hernia Musculoskeletal: Yes Arthritis Endocrine: Yes Diabetes, Non-Insulin dep Cancer: No Psychosocial: Yes Anxiety, Depression Integumentary: No Blood Disorders: No Family Medical History Asthma 19 MOTHER (BREAST CANCER) No Pertinent Family Hx Physical Exam Vital Signs Vital Signs - First Documented 03/02/18 10:00 Temp 96.8 Pulse 70 Resp 18 B/P (MAP) 146/109 (121) Pulse Ox 98 O2 Delivery Room Air Capillary Refill : Less Than 3 Seconds General Appearance: WD/WN, mild distress HEENT: PERRL/EOMI, normal ENT inspection, pharynx normal Neck: normal inspection Respiratory: lungs clear, normal breath sounds, no respiratory distress, no accessory muscle use Cardiovascular: regular rate, rhythm, no edema, no murmur Gastrointestinal: normal bowel sounds, soft, tenderness (Tenderness throughout but more prominent in the suprapubic region) Extremities: normal inspection, no pedal edema Neurologic/Psychiatric: head of biology II-XII nml as tested, no motor/sensory deficits, alert, normal mood/affect, oriented x 3 Skin: normal color, warm/dry Progress/Results/Core Measures Results/Orders Lab Results Laboratory Tests Test 03/02/18 10:40 03/02/18 11:20 Range/Units White Blood Count 9.9 4.3-11.0 10^3/uL Red Blood Count 5.65 4.35-5.85 10^6/uL Hemoglobin 15.6 11.5-16.0 G/DL Hematocrit 44 35-52 % Mean Corpuscular Volume 78 L 80-99 FL Mean Corpuscular Hemoglobin 28 25-34 PG Mean Corpuscular Hemoglobin Concent 35 32-36 G/DL Red Cell Distribution Width 14.2 10.0-14.5 % Platelet Count 386 130-400 10^3/uL Mean Platelet Volume 10.0 7.4-10.4 FL Neutrophils (%) (Auto) 72 42-75 % Lymphocytes (%) (Auto) 20 12-44 % Monocytes (%) (Auto) 8 0-12 % Eosinophils (%) (Auto) 0 0-10 % Basophils (%) (Auto) 0 0-10 % Neutrophils # (Auto) 7.2 1.8-7.8 X 10^3 Lymphocytes # (Auto) 2.0 1.0-4.0 X 10^3 Monocytes # (Auto) 0.8 0.0-1.0 X 10^3 Eosinophils # (Auto) 0.0 0.0-0.3 10^3/uL Basophils # (Auto) 0.0 0.0-0.1 10^3/uL Sodium Level 140 135-145 MMOL/L Potassium Level 3.5 L 3.6-5.0 MMOL/L Chloride Level 107 98-107 MMOL/L Carbon Dioxide Level 20 L 21-32 MMOL/L Anion Gap 13 5-14 MMOL/L Blood Urea Nitrogen 12 7-18 MG/DL Creatinine 0.80 0.60-1.30 MG/DL Estimat Glomerular Filtration Rate > 60 BUN/Creatinine Ratio 15 Glucose Level 144 H 70-105 MG/DL Calcium Level 9.9 8.5-10.1 MG/DL Magnesium Level 2.0 1.8-2.4 MG/DL Total Bilirubin 1.1 H 0.1-1.0 MG/DL Aspartate Amino Transf (AST/SGOT) 16 5-34 U/L Alanine Aminotransferase (ALT/SGPT) 24 0-55 U/L Alkaline Phosphatase 69 40-136 U/L Total Protein 7.6 6.4-8.2 GM/DL Albumin 4.7 H 3.2-4.5 GM/DL Lipase 15 8-78 U/L Serum Test, Qualitative NEGATIVE NEGATIVE Urine Color YELLOW Urine Clarity SLIGHTLY CLOUDY Urine pH 8 5-9 Urine Specific [place] 1.020 1.016-1.022 Urine Protein 1+ H NEGATIVE Urine Glucose (UA) NEGATIVE NEGATIVE Urine Ketones 2+ H NEGATIVE Urine Nitrite NEGATIVE NEGATIVE Urine Bilirubin NEGATIVE NEGATIVE Urine Urobilinogen 4 H NORMAL MG/DL Urine Leukocyte Esterase 1+ H NEGATIVE Urine RBC (Auto) NEGATIVE NEGATIVE Urine RBC NONE /HPF Urine WBC 5-10 H /HPF Urine Squamous Epithelial Cells 2-5 /HPF Urine Crystals PRESENT H /LPF Urine Amorphous Sediment LARGE JESUS PHOSPHATE H /LPF Urine Bacteria FEW H /HPF Urine Casts NONE /LPF Urine Mucus NEGATIVE /LPF Urine Culture Indicated YES Micro Results Microbiology 03/02/18 Urine Culture - Final, Complete See Comments My Orders Orders - SHAQUILLE LEA MD Cbc With Automated Diff (03/02/18 10:42) Comprehensive Metabolic Panel (03/02/18 10:42) Magnesium (03/02/18 10:42) Saline Lock/Iv-Start (03/02/18 10:42) Ns Iv 1000 Ml (Sodium Chloride 0.9%) (03/02/18 10:42) Ondansetron Injection (Zofran Injectio (03/02/18 10:45) Lipase (03/02/18 10:44) Hcg,Qualitative Serum (03/02/18 11:02) Fentanyl Injection (Sublimaze Injection (03/02/18 11:15) Ua Culture If Indicated (03/02/18 11:12) Urine Culture (03/02/18 11:20) Fentanyl Injection (Sublimaze Injection (03/02/18 12:45) Ct Abdomen/Pelvis W (03/02/18 12:43) Iohexol Injection (Omnipaque 350 Mg/Ml 1 (03/02/18 13:15) Sodium Chloride Flush (Catheter Flush Sy (03/02/18 13:15) Ns (Ivpb) (Sodium Chloride 0.9%) (03/02/18 13:15) Us Non Ob Pelvis Comp/Transvag (03/02/18 14:25) Ketorolac Injection (Toradol Injection) (03/02/18 14:45) Iv Push Single Corner Cutter Ed (03/02/18 ) Medications Given in ED Vital Signs/I&O 03/02/18 03/02/18 10:00 16:17 Temp 96.8 Pulse 70 109 Resp 18 18 B/P (MAP) 146/109 (121) 168/98 Pulse Ox 98 98 O2 Delivery Room Air Room Air Blood Pressure Mean: 121 Progress Progress Note : Progress Note Patient was initially treated with IV fluids, Zofran, and fentanyl. Prior to discharge Toradol was also given for pain. Options for evaluation with imaging were discussed with the patient. After discussion of risks and benefits, CT scan was obtained. Patient had multiple cystic structures in the pelvis. Further evaluation with ultrasound was recommended by the radiologist. This was performed. Complex cysts were confirmed. Patient was advised to follow-up with her gynecologic provider. There was suspicion for urinary tract infection as well, and Keflex was prescribed. Diagnostic Imaging Diagonstic Imaging: CT Plain Films/CT/US/NM/MRI: abdomen, pelvis Comments CT abdomen and pelvis viewed by me and report reviewed. See report below: NAME: GABY GASTON [facility] REC#: [id number] PT STATUS: DEP ER : 1970 PHYSICIAN: SHAQUILLE LEA MD ADMIT DATE: 03/02/18/ER Signed Date of Exam: 03/02/18 CT ABDOMEN/PELVIS W PROCEDURE: CT abdomen and pelvis with contrast. TECHNIQUE: Multiple contiguous axial images were obtained through the abdomen and pelvis after administration of intravenous contrast. INDICATION: Abdominal pain. Pre-CT abdomen/pelvis exam of 10/28/2014 failed to show any sign of an acute abnormality. On this study, the liver is homogeneous and not enlarged. The liver may be of a somewhat lower density than usually seen. This appearance does suggest fatty metamorphosis. The spleen, pancreas, adrenals, kidneys, aorta and inferior cava show no sign of an acute abnormality. The small benign-appearing nodule associated with the left adrenal gland seen previously is again evident and no different. Also as on the prior exam the gallbladder is surgically absent. The stomach is not well-distended and consequently difficult to assess. The images through the pelvis show that in the interval since the prior study a well-circumscribed 4.8 x 6.3 CM area of low density has developed in the left adnexa. Most likely this is a cyst arising from the left ovary. There is also a more complex low density lesion in the right adnexa measuring 4.0 x 4.6 MM. This too probably represents an ovarian cyst although it may be complicated by infection and/or hemorrhage. The uterus itself is generally unremarkable. There is diverticulosis of the sigmoid colon but there is no sign of an acute diverticulitis. The appendix is not well-visualized and appears to be surgically absent. The urinary bladder is grossly unremarkable. The bone windows show no sign of a fracture or of a destructive lesion. The lung bases are clear. There is no obvious breast mass. According to our records the patient has not had a mammogram. If the patient has had a recent (within the last year) mammogram elsewhere, then no further imaging will be necessary. However if the patient has not had a recent mammogram, mammography should be obtained. IMPRESSION: 1. In the interval since the prior exam bilateral ovaries cysts have developed. The cyst on the right appears to be slightly complicated by infection and/or hemorrhage. Ultrasound would be recommended for further evaluation of both these findings. 2. There is no acute abnormality of the abdomen or pelvis noted otherwise. 3. There is no obvious breast mass. Recommendations as above. Dictated by: Dictated on workstation # [id number] Dict: 03/02/18 1335 Trans: 03/03/182128 Interpreted by: NESS FELTON MD Electronically signed by: NESS FELTON MD 03/03/182128 Diagonstic Imaging: Ultrasound Plain Films/CT/US/NM/MRI: pelvis Comments Report reviewed as below: MED REC#: [id number] PT STATUS: REG ER : 1970 PHYSICIAN: SHAQUILLE LEA MD ADMIT DATE: 03/02/18/ER Signed Date of Exam:03/02/18 US NON OB PELVIS COMP/TRANSVAG INDICATION: Bilateral ovarian cysts noted on recent CT. TECHNIQUE: Multiple real-time grayscale images were obtained of the pelvis in various projections endovaginally. Transabdominal imaging was also performed. COMPARISON: Comparison is made with CT study from 03/02/2018. FINDINGS: The uterus measures 7.7 x 5.2 x 3.5 cm. Endometrium is 6 mm in thickness. No myometrial mass is identified. There is a complex cystic mass with internal septations involving the left ovary measuring 4.9 x 5.9 x 4.2 cm. This does correspond with the CT abnormality. The right adnexa also demonstrate complex septated cystic mass measuring 4.8 x 4.9 x 5.0 cm, also accounting for the CT abnormality. No free fluid is seen. IMPRESSION: Bilateral complex septated cystic masses involving the adnexa, corresponding with the CT abnormality. While these could represent complex ovarian cysts, possibility of cystic neoplasm cannot be entirely excluded. If no surgical intervention is performed, close follow-up to confirm stability is recommended. Dictated by: Dictated on workstation # [id number] Dict: 03/02/18 1520 Trans: 03/02/18 1554 [id number] Interpreted by: JOHANA GRIDER MD Electronically signed by: JOHANA GRIDER MD 03/02/18 1554 Departure Impression Primary Impression: Generalized abdominal pain Additional Impressions: Nausea vomiting and diarrhea Complex cyst of left ovary Complex cyst of right ovary Urinary tract infection Qualified Codes: N39.0 - Urinary tract infection, site not specified Disposition: HOME, SELF-CARE Condition: Improved Admissions Decision to Admit Reason: Admit from ER (General) Decision to Admit/Date: March 02, 2018 Time/Decision to Admit Time: 16:00 Departure-Patient Inst. Referrals: NANCY DELGADO DO (PCP/Family) Primary Care Physician Patient Instructions: Acute Abdomen (Belly Pain), Adult (DC), Ovarian Cyst (DC) , Urinary Tract Infection, Adult (DC) Add. 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 Return to emergency room if symptoms worsen. Use your medications as prescribed. Avoid excessive use of NSAID medications such as ibuprofen or naproxen for treatment of your pain. Instead, use a Tylenol (acetaminophen). For more severe pain take hydrocodone as prescribed. Complete your antibiotics as prescribed and follow-up with your primary care provider on Wednesday in person or by phone to review your urine culture results. All discharge instructions reviewed with patient and/or family. Voiced understanding. Scripts Hydrocodone/Acetaminophen (Hydrocodone-Acetamin 5-325 mg) 1 Each Tablet 1 EACH PO Q4H, #10 TAB Prov: SHAQUILLE LEA MD 03/02/18 Cephalexin (Keflex) 500 Mg Capsule 500 MG PO QID, #28 CAP Prov: SHAQUILLE LEA MD 03/02/18 Ondansetron (Zofran Odt) 4 Mg Tab.rapdis 4 MG SL Q4H PRN for NAUSEA/VOMITING-1ST LINE, #10 TAB Prov: SHAQUILLE LEA MD 03/02/18 Copy Copies To 1: NANCY DELGADO JOSHUA T MD March 02, 2018 16:09
[2018-03-02 16:17] VITALS: BP 168/98
== END 2018-03-02 16:17 | disposition home or self-care (01) ==
LOC: EDUNIT# 09:53 → ER 09:55
DX: N83.291 Other ovarian cyst, right side (principal); N83.292 Other ovarian cyst, left side; E11.9 Type 2 diabetes mellitus without complications; F41.9 Anxiety disorder, unspecified; F32.9 Major depressive disorder, single episode, unspecified; Z87.19 Personal history of other diseases of the digestive system; Z79.84 Long term (current) use of oral hypoglycemic drugs; Z90.89 Acquired absence of other organs; Z80.3 Family history of malignant neoplasm of breast; Z87.440 Personal history of urinary (tract) infections
CPT/HCPCS: 36415; 74177; 76830; 76856; 80053; 81000; 83690; 83735; 84703; 85025; 87088; 96361; 96374; 96375; 96376

== ENCOUNTER → 2018-05-12 | Outpatient (CLI) | payer BC ==
[~2018-05-12] MED LIST changes: +CEPH-507 PO; +HYDR-3812 PO; +IOHEXOL 350 MG/ML 150 ML (OMNIPAQUE 350) VIAL IV ONE; +NS 250 ML (IVPB) BAG IV ONE; +ONDA4TAB8 SL
--- NOTE | 2018-05-12 08:56 | Diagnostic Imaging Report ---
PROCEDURE: CT angiography of the chest with contrast. TECHNIQUE: Multiple contiguous axial images were obtained through the chest after uneventful bolus administration of intravenous contrast. Reconstructed CTA MIP acquisitions were also performed. INDICATION: Shortness of breath and bronchitis. COMPARISON: No prior CT angiogram chest studies are available for comparison. FINDINGS: Evaluation of the pulmonary arterial system is without evidence of thromboembolism. No filling defects are seen within the central, lobar or segmental branches. The thoracic aorta is normal caliber. No dissection is seen. No pericardial or pleural fluid is identified. No axillary lymphadenopathy is identified. No mediastinal or hilar lymphadenopathy is detected. Micronodules are identified in both lower lobes, stable when compared with CT dating back to 2013. No parenchymal mass is identified. Central airways are patent. There is some dependent atelectasis in the lung bases. The upper abdomen is unremarkable. IMPRESSION: No evidence of pulmonary embolism or thoracic aortic dissection. No acute features identified. Dictated by: Dictated on workstation # [id number]
== END ==
LOC: RAD 07:49
PROVIDERS: ATTEND Family Medicine
DX: J40 Bronchitis, not specified as acute or chronic (principal)
CPT/HCPCS: 71275

== ENCOUNTER → 2018-07-05 | Outpatient (CLI) | payer BC ==
[~2018-07-05] MED LIST changes: -IOHEXOL 350 MG/ML 150 ML (OMNIPAQUE 350) VIAL IV ONE; +METF-397 PO; -METF500T5 PO; -NS 250 ML (IVPB) BAG IV ONE
== END ==
LOC: CARD 12:58
PROVIDERS: ATTEND Nurse Practitioner Family
DX: R06.00 Dyspnea, unspecified (principal); G47.9 Sleep disorder, unspecified
CPT/HCPCS: 93306

== ENCOUNTER 2018-09-19 11:00 | Outpatient (CLI) | payer BC ==
[~2018-09-19] VITALS: Ht 167.6 cm; Wt 136.1 kg
[2018-09-19] MEDS ORDERED: ESCI20TA45 PO (11:08)
[2018-09-19] MEDS ORDERED: NF-ESOM40C PO (11:08)
[2018-09-19] MEDS ORDERED: PROP40TA5 PO (11:08)
[2018-09-19] MEDS ORDERED: TRAZ300T3 PO (11:08)
[2018-09-19] MEDS ORDERED: BUSP15TA60 PO (11:08)
[2018-09-19] MEDS ORDERED: PANT40TA3 PO (11:08)
== END 2018-09-19 11:38 | disposition home or self-care (01) ==
LOC: PREOP 11:00
PROVIDERS: ATTEND Surgery
DX: Z01.818 Encounter for other preprocedural examination (principal)

== ENCOUNTER 2018-09-21 09:10 | Day surgery (SDC) | payer BC ==
[~2018-09-21] VITALS: Ht 167.6 cm; Wt 136.1 kg
[~2018-09-21 09:10] MED LIST changes: +BUSP15TA60 PO; +ESCI20TA45 PO; +PANT40TA3 PO; +TRAZ300T3 PO
[2018-09-21] MEDS ORDERED: NS IV 500 ML 500 ML IV PRN (09:20)
[2018-09-21] MEDS ORDERED: NS IV 500 ML 500 ML ONE (09:28)
[2018-09-21] MEDS ORDERED: fentaNYL INJECTION 100 MCG/2 ML AMP IVP ONE (09:30)
[2018-09-21] MEDS ORDERED: LIDOCAINE JELLY 2% 6 ML SYRINGE MM PRN (09:30)
[2018-09-21] MEDS ORDERED: MIDAZOLAM 2 MG/2 ML (VERSED) VIAL IVP ONE (09:30)
[2018-09-21] MEDS ORDERED: HURRICAINE EXT TUBE (BENZOCAINE) XX PRN (09:30)
--- OUTSIDE RECORDS SUMMARY | 2018-09-21 09:34 | XMS REPORT | Continuity of Care Document ---
Author Author [facility] Organization [facility] Address Unknown Phone Unavailable Allergies Active Description Code Type Severity Reaction Onset Reported/Identified Relationship to Patient Clinical Status Yes No Known Drug Allergies [id number] Drug Allergy Unknown N/A 03/12/2010 Medications There [...] GLORIA S Ot 276.8 HYPOPOTASSEMIA 06/15/2013 ROMÁNNDTEVIN DO, GLORIA S Ot 300.00 ANXIETY STATE NOS 06/15/2013 ROMÁNNDTEVIN DO, GLORIA S Ot 311 DEPRESSIVE DISORDER NEC 06/15/2013 SANDY DO GLORIA S Ot 401.9 HYPERTENSION NOS 06/15/2013 ROMÁNNDTEVIN DO GLORIA S Ot 530.81 ESOPHAGEAL REFLUX 06/15/2013 ROMÁNNDTEVIN MOULTON GLORIA S Ot 536.2 PERSISTENT VOMITING 06/15/2013 ORENDER DO, GLORIA S Ot 573.8 LIVER DISORDERS NEC 06/15/2013 ORENDER DO, GLORIA S Ot 574.20 CHOLELITHIASIS NOS 06/15/2013 ROMÁNNDER DO GLORIA S Ot 593.9 RENAL URETERAL DIS NOS 10/22/2014 Ot 511.9 10/22/2014 Ot 805.4 10/22/2014 Ot E000.8 10/22/2014 Ot E030 10/22/2014 Ot E819.9 10/22/2014 KARTHIK DANIEL Ot 574.20 10/22/2014 TRUNGKARTHIK ARORA ORDER BUILDER LOADER Ot 789.06 10/28/2014 LEONORA CHAIREZ, SHAQUILLE Hahn Ot 599.0 URIN TRACT INFECTION NOS 10/28/2014 LEONORA CHAIREZ, SHAQUILLE Hahn Ot 787.01 NAUSEA WITH VOMITING 10/29/2014 Ot 511.9 10/29/2014 Ot 805.4 10/29/2014 Ot E000.8 10/29/2014 Ot E030 10/29/2014 Ot E819.9 10/29/2014 MARÍAKARTHIK ORDER BUILDER LOADER Ot 574.20 10/29/2014 MARÍAKARTHIK ORDER BUILDER LOADER Ot 789.06 10/30/2014 DINA GREEN MD Ot [...] CHAIREZ, PACO Hdz Ot V72.84 08/09/2015 MARÍAKARTHIK ORDER BUILDER LOADER Ot 574.20 08/09/2015 MARÍA KARTHIK Hdz ORDER BUILDER LOADER Ot 789.06 08/09/2015 JERALD CHAIREZ, PACO Hdz Ot V72.84 12/04/2015 KATE UMANZOR APRN Ot R07.89 OTHER CHEST PAIN 12/20/2015 PRABHJOT SEN MD Ot E11.9 TYPE 2 DIABETES MELLITUS WITHOUT COMPLIC 12/20/2015 PRABHJOT SEN MD Ot R10.13 EPIGASTRIC PAIN 12/20/2015 PRABHJOT SEN MD Ot R11.2 NAUSEA WITH VOMITING, UNSPECIFIED 12/20/2015 MARÍA KARTHIK M ORDER BUILDER LOADER Ot 574.20 12/20/2015 VANALINA, KARTHIK M ORDER BUILDER LOADER Ot 789.06 12/20/2015 JERALD CHAIREZ, PACO Hdz Ot V72.84 12/22/2015 KATE UMANZOR PUBLIC RELATIONS PROFESSIONAL Ot E11.9 TYPE 2 DIABETES MELLITUS WITHOUT COMPLIC 12/22/2015 KATE UMANZOR PUBLIC RELATIONS PROFESSIONAL Ot K29.70 GASTRITIS, UNSPECIFIED, WITHOUT BLEEDING 12/22/2015 KATE UMANZOR PUBLIC RELATIONS PROFESSIONAL Ot R53.81 OTHER MALAISE 12/22/2015 KATE UMANZOR PUBLIC RELATIONS PROFESSIONAL Ot Z79.899 OTHER ARCHITECTURAL DRAFTSMAN (CURRENT) DRUG THERAPY 12/23/2015 MCKINLEY CHAIREZ, PRABHJOT D Ot E11.9 12/23/2015 MCKINLEY CHAIREZ, PRABHJOT D Ot R10.13 12/23/2015 MCKINLEY CHAIREZ, PRABHJOT D Ot R11.2 12/30/2015 MARÍA KARTHIK M ORDER BUILDER LOADER Ot 574.20 12/30/2015 VANALINA KARTHIK M ORDER BUILDER LOADER Ot 789.06 12/30/2015 JERALD CHAIREZ, PACO Hdz Ot V72.84 01/09/2016 KATE UMANZOR PUBLIC RELATIONS PROFESSIONAL Ot E11.9 01/09/2016 KATE UMANZOR PUBLIC RELATIONS PROFESSIONAL Ot K29.70 01/09/2016 KATE UMANZOR PUBLIC RELATIONS PROFESSIONAL Ot R53.81 01/09/2016 KATE UMANZOR PUBLIC RELATIONS PROFESSIONAL Ot Z79.899 01/09/2016 VANALINA KARTHIK M ORDER BUILDER LOADER Ot 574.20 01/09/2016 VANALINA KARTHIK M ORDER BUILDER LOADER Ot 789.06 01/09/2016 JERALD CHAIREZ, PACO Hdz Ot V72.84 01/11/2016 JOHN STRONG PUBLIC RELATIONS PROFESSIONAL Ot K29.70 07/07/2016 VANBECELAERE, KARTHIK M ORDER BUILDER LOADER Ot 574.20 CHOLELITHIASIS NOS 07/07/2016 VANKRISSYELAEKARTHIK MANDEL M ORDER BUILDER LOADER Ot 789.06 ABDOMINAL PAIN, EPIGASTRIC 07/07/2016 JERALD CHAIREZ, PACO Hdz Ot V72.84 EXAM PRE-OPERATIVE NOS 07/07/2016 JOHN STRONG PUBLIC RELATIONS PROFESSIONAL Ot K29.70 GASTRITIS, UNSPECIFIED, WITHOUT BLEEDING 11/03/2017 BHAVNA BENITEZ PUBLIC RELATIONS PROFESSIONAL Ot R05 COUGH 11/03/2017 BHAVNA BENITEZ R PUBLIC RELATIONS PROFESSIONAL Ot R05 COUGH 11/03/2017 PRABHJOT SEN MD, Ot E11.9 TYPE 2 DIABETES MELLITUS WITHOUT COMPLIC 11/03/2017 PRABHJOT SEN MD, Ot F32.9 MAJOR DEPRESSIVE DISORDER, SINGLE EPISOD 11/03/2017 PRABHJOT SEN MD Ot R10.11 RIGHT UPPER QUADRANT PAIN 11/03/2017 PRABHJOT SEN MD Ot R10.12 LEFT UPPER QUADRANT PAIN 11/03/2017 PRABHJOT SEN MD Ot R11.2 NAUSEA WITH VOMITING, UNSPECIFIED 11/03/2017 PRABHJOT SEN MD, Ot Z79.84 RETIREMENT (CURRENT) USE OF ORAL HYPOGLYC 11/03/2017 PRABHJOT [...] Ot R10.12 LEFT UPPER QUADRANT PAIN 11/05/2017 PRABJHOT SEN MD Ot R11.2 NAUSEA WITH VOMITING, UNSPECIFIED 11/05/2017 PRABHJOT SEN MD Ot Z79.84 ARCHITECTURAL DRAFTSMAN (CURRENT) USE OF ORAL HYPOGLYC 11/05/2017 PRABHJOT SEN MD Ot Z80.3 FAMILY HISTORY OF MALIGNANT NEOPLASM OF 11/05/2017 PRABHJOT SEN MD Ot Z87.19 PERSONAL HISTORY OF OTHER DISEASES OF 11/05/2017 PRABHJOT SEN MD Ot Z87.440 PERSONAL HISTORY OF URINARY (TRACT) INFE 11/05/2017 PRABHJOT SEN MD, Ot Z90.49 ACQUIRED ABSENCE OF OTHER SPECIFIED PART 11/05/2017 PRABHJOT SEN MD, Ot Z90.89 ACQUIRED ABSENCE OF OTHER ORGANS 11/11/2017 ELI BHAVNA R PUBLIC RELATIONS PROFESSIONAL Ot R05 COUGH 02/11/2018 VANKARTHIK FULLER M ORDER BUILDER LOADER Ot 574.20 CHOLELITHIASIS NOS 02/11/2018 KARTHIK DANIEL M ORDER BUILDER LOADER Ot 789.06 ABDOMINAL PAIN, EPIGASTRIC 02/11/2018 JERALD CHAIREZ, PACO M Ot V72.84 EXAM PRE-OPERATIVE NOS 02/11/2018 TAEJOHN L PUBLIC RELATIONS PROFESSIONAL Ot K29.70 GASTRITIS, UNSPECIFIED, WITHOUT BLEEDING 02/11/2018 ELI BHAVNA R PUBLIC RELATIONS PROFESSIONAL Ot R05 COUGH 03/02/2018 VANKRISSYELAEKARTHIK MANDEL M ORDER BUILDER LOADER Ot 574.20 CHOLELITHIASIS NOS 03/02/2018 KARTHIK DANIEL M ORDER BUILDER LOADER Ot 789.06 ABDOMINAL PAIN, EPIGASTRIC 03/02/2018 JERALD CHAIREZ, PACO M Ot V72.84 EXAM PRE-OPERATIVE NOS 03/02/2018 TAE JOHN Lawrence PUBLIC RELATIONS PROFESSIONAL Ot K29.70 GASTRITIS, UNSPECIFIED, WITHOUT BLEEDING 03/02/2018 BHAVNA BENITEZ R PUBLIC RELATIONS PROFESSIONAL Ot R05 COUGH 03/02/2018 LEONORA CHAIREZ, SHAQUILLE Hahn Ot E11.9 TYPE 2 DIABETES MELLITUS WITHOUT COMPLIC 03/02/2018 SHAQUILLE LEA MD Ot F32.9 MAJOR DEPRESSIVE DISORDER, SINGLE EPISOD 03/02/2018 SHAQUILLE LEA MD Ot F41.9 ANXIETY DISORDER, UNSPECIFIED 03/02/2018 SHAQUILLE LEA MD Ot N83.291 OTHER OVARIAN CYST, RIGHT SIDE 03/02/2018 SHAQUILLE LEA MD Ot N83.292 OTHER OVARIAN CYST, LEFT SIDE 03/02/2018 SHAQUILLE LEA MD Ot R11.2 NAUSEA WITH VOMITING, UNSPECIFIED 03/02/2018 LEONORA CHAIREZ, SHAQUILLE Hahn Ot Z79.84 RETIREMENT (CURRENT) USE OF ORAL HYPOGLYC 03/02/2018 SHAQUILLE LEA MD Ot Z80.3 FAMILY HISTORY OF MALIGNANT NEOPLASM OF 03/02/2018 SHAQUILLE LEA MD Ot Z87.19 PERSONAL HISTORY OF OTHER DISEASES OF 03/02/2018 SHAQUILLE LEA MD Ot Z87.440 PERSONAL HISTORY OF URINARY (TRACT) INFE 03/02/2018 SHAQUILLE LEA MD Ot Z90.89 ACQUIRED ABSENCE OF OTHER ORGANS 03/04/2018 SHAQUILLE LEA MD Ot E11.9 TYPE 2 DIABETES MELLITUS WITHOUT COMPLIC 03/04/2018 SHAQUILLE LEA MD Ot F32.9 MAJOR DEPRESSIVE DISORDER, SINGLE EPISOD 03/04/2018 SHAQUILLE LEA MD Ot F41.9 ANXIETY DISORDER, UNSPECIFIED 03/04/2018 SHAQUILLE LEA MD Ot N83.291 OTHER OVARIAN CYST, RIGHT SIDE 03/04/2018 SHAQUILLE LEA MD Ot N83.292 OTHER OVARIAN CYST, LEFT SIDE 03/04/2018 SHAQUILLE LEA MD Ot R11.2 NAUSEA WITH VOMITING, UNSPECIFIED 03/04/2018 SHAQUILLE LEA MD Ot Z79.84 ARCHITECTURAL DRAFTSMAN (CURRENT) USE OF ORAL HYPOGLYC 03/04/2018 SHAQUILLE LEA MD Ot Z80.3 FAMILY HISTORY OF MALIGNANT NEOPLASM OF 03/04/2018 SHAQUILLE LEA MD Ot Z87.19 PERSONAL HISTORY OF OTHER DISEASES OF 03/04/2018 SHAQUILLE LEA MD Ot Z87.440 PERSONAL HISTORY OF URINARY (TRACT) INFE 03/04/2018 SHAQUILLE LEA MD Ot Z90.89 ACQUIRED ABSENCE OF OTHER ORGANS 03/08/2018 SHAQUILLE LAE MD Ot E11.9 TYPE 2 DIABETES MELLITUS WITHOUT COMPLIC 03/08/2018 SHAQUILLE LEA MD Ot F32.9 MAJOR DEPRESSIVE DISORDER, SINGLE EPISOD 03/08/2018 SHAQUILLE LEA MD Ot F41.9 ANXIETY DISORDER, UNSPECIFIED 03/08/2018 SHAQUILLE LEA MD T Ot N83.291 OTHER OVARIAN CYST, RIGHT SIDE 03/08/2018 LENOORA CHAIREZ, SHAQUILLE Hahn Ot N83.292 OTHER OVARIAN CYST, LEFT SIDE 03/08/2018 LEONORA CHAIREZ, SHAQUILLE Hahn Ot R11.2 NAUSEA WITH VOMITING, UNSPECIFIED 03/08/2018 LEONORA CHAIREZ, SHAQUILLE Hahn Ot Z79.84 ARCHITECTURAL DRAFTSMAN (CURRENT) USE OF ORAL HYPOGLYC 03/08/2018 SHAQUILLE LEA MD Ot Z80.3 FAMILY HISTORY OF MALIGNANT NEOPLASM OF 03/08/2018 LEONORA CHAIREZ, SHAQUILLE Hahn Ot Z87.19 PERSONAL HISTORY OF OTHER DISEASES OF TH 03/08/2018 SHAQUILLE LEA MD Ot Z87.440 PERSONAL HISTORY OF URINARY (TRACT) INFE 03/08/2018 LEONORA CHAIREZ, SHAQUILLE Hahn Ot Z90.89 ACQUIRED ABSENCE OF OTHER ORGANS 06/10/2018 GLORIA TEIXEIRA DO S Ot R06.09 OTHER FORMS OF DYSPNEA 07/07/2018 MILAGROS CASTILLO PUBLIC RELATIONS PROFESSIONAL Ot G47.9 SLEEP DISORDER, UNSPECIFIED 07/07/2018 MILAGROS CASTILLO PUBLIC RELATIONS PROFESSIONAL Ot R06.00 DYSPNEA, UNSPECIFIED 07/07/2018 MILAGROS CASTILLO PUBLIC RELATIONS PROFESSIONAL Ot G47.9 SLEEP DISORDER, UNSPECIFIED 07/07/2018 MILAGROS CASTILLO PUBLIC RELATIONS PROFESSIONAL Ot R06.00 DYSPNEA, UNSPECIFIED 07/19/2018 KARTHIK DANIEL M ORDER BUILDER LOADER Ot 574.20 CHOLELITHIASIS NOS 07/19/2018 KARTHIK DANIEL M ORDER BUILDER LOADER Ot 789.06 ABDOMINAL PAIN, EPIGASTRIC 07/19/2018 JERALD CHAIREZ, PACO Hdz Ot V72.84 EXAM PRE-OPERATIVE NOS 07/19/2018 JOHN STRONG PUBLIC RELATIONS PROFESSIONAL Ot K29.70 GASTRITIS, UNSPECIFIED, WITHOUT BLEEDING 07/19/2018 BHAVNA BENITEZ PUBLIC RELATIONS PROFESSIONAL Ot R05 COUGH 07/19/2018 Ot J40 BRONCHITIS, NOT SPECIFIED ACUTE OR CH 07/19/2018 GLORIA TEIXEIRA DO S Ot R06.09 OTHER FORMS OF DYSPNEA 07/19/2018 MILAGROS CASTILLO PUBLIC RELATIONS PROFESSIONAL Ot G47.9 SLEEP DISORDER, UNSPECIFIED 07/19/2018 MILAGROS CASTILLO PUBLIC RELATIONS PROFESSIONAL Ot R06.00 DYSPNEA, UNSPECIFIED 07/21/2018 MILAGROS CASTILLO PUBLIC RELATIONS PROFESSIONAL Ot G47.9 SLEEP DISORDER, UNSPECIFIED 07/21/2018 MILAGROS CASTILLO APRN Ot R06.00 DYSPNEA, UNSPECIFIED 07/25/2018 BHAVNA BENITEZ PUBLIC RELATIONS PROFESSIONAL Ot R05 COUGH 09/15/2018 PETER CHAIREZ, DINA Ot Z01.818 ENCOUNTER FOR OTHER PREPROCEDURAL EXAMIN Procedures Code Description Performed By Performed On [...] - 11/03/17 15:43 Lipase 11 U/L 8-78 Complete blood count (CBC) with automated white blood cell (WBC) differential - 03/02/18 10:40 Blood leukocytes automated count (number/volume) 9.9 10*3/uL 4.3-11.0 Blood erythrocytes automated count (number/volume) 5.65 10*6/uL 4.35-5.85 Venous blood hemoglobin measurement (mass/volume) 15.6 g/dL 11.5-16.0 Blood hematocrit (volume fraction) 44 % 35-52 Automated erythrocyte mean corpuscular volume 78 [foz_us] 80-99 Automated erythrocyte mean corpuscular hemoglobin (mass per erythrocyte) 28 pg 25-34 Automated erythrocyte mean corpuscular hemoglobin concentration measurement ( mass/volume) 35 g/dL 32-36 Automated erythrocyte distribution width ratio 14.2 % 10.0-14.5 Automated blood platelet count (count/volume) 386 10*3/uL 130-400 Automated blood platelet mean volume measurement 10.0 [foz_us] 7.4-10.4 Automated blood neutrophils/100 leukocytes 72 % 42-75 Automated blood lymphocytes/100 leukocytes 20 % 12-44 Blood monocytes/100 leukocytes 8 % 0-12 Automated blood eosinophils/100 leukocytes 0 % 0-10 Automated blood basophils/100 leukocytes 0 % 0-10 Blood neutrophils automated count (number/volume) 7.2 10*3 1.8-7.8 Blood lymphocytes automated count (number/volume) 2.0 10*3 1.0-4.0 Blood monocytes automated count (number/volume) 0.8 10*3 0.0-1.0 Automated eosinophil count 0.0 10*3/uL 0.0-0.3 Automated blood basophil count (count/volume) 0.0 10*3/uL 0.0-0.1 Serum or plasma choriogonadotropin ( test) detection - 03/02/18 10:40 Serum or plasma choriogonadotropin ( test) detection NEGATIVE NEGATIVE Comprehensive metabolic panel - 03/02/18 10:40 Serum or plasma sodium measurement (moles/volume) 140 mmol/L 135-145 Serum or plasma potassium measurement (moles/volume) 3.5 mmol/L 3.6-5.0 Serum or plasma chloride measurement (moles/volume) 107 mmol/L 98-107 Carbon dioxide 20 mmol/L 21-32 Serum or plasma anion gap determination (moles/volume) 13 mmol/L 5-14 Serum or plasma urea nitrogen measurement (mass/volume) 12 mg/dL 7-18 Serum or plasma creatinine measurement (mass/volume) 0.80 mg/dL 0.60-1.30 Serum or plasma urea nitrogen/creatinine mass ratio 15 NRG Serum or plasma creatinine measurement with calculation of estimated glomerular filtration rate > NRG Serum or plasma glucose measurement (mass/volume) 144 mg/dL 70-105 Serum or plasma calcium measurement (mass/volume) 9.9 mg/dL 8.5-10.1 Serum or plasma total bilirubin measurement (mass/volume) 1.1 mg/dL 0.1-1.0 Serum or plasma alkaline phosphatase measurement (enzymatic activity/volume) 69 U/L 40-136 Serum or plasma aspartate aminotransferase measurement (enzymatic activity/ volume) 16 U/L 5-34 Serum or plasma alanine aminotransferase measurement (enzymatic activity/volume ) 24 U/L 0-55 Serum or plasma protein measurement (mass/volume) 7.6 g/dL 6.4-8.2 Serum or plasma albumin measurement (mass/volume) 4.7 g/dL 3.2-4.5 Magnesium - 03/02/18 10:40 Magnesium 2.0 mg/dL 1.8-2.4 Lipase - 03/02/18 10:40 Lipase 15 U/L 8-78 Complete urinalysis with reflex to culture - 03/02/18 11:20 Urine color determination YELLOW NRG Urine clarity determination SLIGHTLY CLOUDY NRG Urine pH measurement by test strip 8 5-9 Specific gravity of urine by test strip 1.020 1.016- 1.022 Urine protein assay by test strip, semi-quantitative 1+ NEGATIVE Urine glucose detection by automated test [...] detection in urine sediment by light microscopy FEW NRG Squamous epithelial cells detection in urine sediment by light microscopy 2-5 NRG Crystals detection in urine sediment by light microscopy PRESENT NRG Casts detection in urine sediment by light microscopy NONE NRG Mucus detection in urine sediment by light microscopy NEGATIVE NRG Complete urinalysis with reflex to culture YES NRG Amorphous sediment detection in urine sediment by light microscopy LARGE JESUS PHOSPHATE NRG Bacterial urine culture - 03/02/18 11:20 Bacterial urine culture SEE COMMEN NRG COLONY COUNT . NRG Encounters ACCT No. Visit Date/Time Discharge Status Pt. Type Provider Facility Loc./Unit Complaint [id number] 09/14/2018 05:53:00 09/14/2018 23:59:59 CLS Outpatient DINA GREEN MD [facility] PREOP COLONOSCOPY [id number] 07/05/2018 12:58:00 07/05/2018 23:59:59 CLS Outpatient MILAGROS CASTILLO APRN [facility] CARD SLEEP DISORDER [id number] 05/23/2018 14:58:00 05/23/2018 23:59:59 CLS Outpatient GLORIA TEIXEIRA DO S [facility] RT DYSPNEA [id number] 03/02/2018 09:55:00 03/02/2018 16:17:00 DIS Emergency SHAQUILLE LEA MD [facility] ER ABD PAIN [id number] 11/03/2017 14:17:00 11/03/2017 18:52:00 DIS Emergency PRABHJOT SEN MD [facility] ER GASTRITIS/N/V/D [id number] 11/02/2017 10:26:00 11/02/2017 23:59:59 CLS Outpatient BHAVNA BENITEZ PUBLIC RELATIONS PROFESSIONAL [facility] RAD COUGH,SOB [id number] 01/10/2016 06:44:00 01/10/2016 23:59:59 CLS Outpatient JOHN STRONG Howard PUBLIC RELATIONS PROFESSIONAL [facility] CARD NAUSEA,VOMITTING, GASTROPARESIS [id number] 12/22/2015 09:18:00 12/22/2015 12:53:00 DIS Emergency KATE UMANZOR PUBLIC RELATIONS PROFESSIONAL [facility] ER R ARM TINGLING [id number] 12/20/2015 18:11:00 12/20/2015 20:52:00 DIS Emergency MCKINLEY CHAIREZ, PRABHJOT Frausto [facility] ER ABD PAIN [id number] 12/04/2015 10:42:00 12/04/2015 14:24:00 DIS Emergency KATE UMANZOR PUBLIC RELATIONS PROFESSIONAL [facility] ER CHEST PAIN [id number] 11/03/2014 17:42:00 11/05/2014 17:45:00 DIS Inpatient ORENICOLE RODRIGUEZ DOLINE S [facility] SURGICAL INTRACTABLE NAUSEA,VOMITING;GASTRITIS [id number] 10/29/2014 17:45:00 10/30/2014 12:43:00 DIS Outpatient DINA GREEN MD [facility] EPIGASTRIC PAIN;NAUSEA AND VOMITING [id number] 10/29/2014 14:52:00 10/29/2014 23:59:59 CLS Outpatient JERALD CHAIREZ, PACO Hdz [facility] PREOP NAUSEA; ABD. PAIN [id number] 10/28/2014 12:48:00 10/28/2014 18:45:00 DIS Emergency LEONORA CHAIREZ, SHAQUILLE Hahn [facility] ER VOMITING [id number] 06/13/2013 15:54:00 06/15/2013 10:37:00 DIS Inpatient ROMÁNNDTEVIN MOULTON GLORIA S [facility] SURGICAL ACUTE CHOLECYSTITIS,ABD PAIN,INTRACTABLE NAUSEA,VO [id number] 06/11/2013 15:44:00 06/11/2013 20:43:00 DIS Emergency SAUL FRASER [facility] ER ABD PAIN [id number] 06/09/2013 08:49:00 06/09/2013 23:59:59 CLS Outpatient KARTHIK DANIEL [facility] RAD EPIGASTRIC PAIN [id number] 05/26/2013 13:42:00 05/26/2013 23:59:59 CLS Outpatient [id number] 03/22/2013 14:09:00 03/22/2013 23:59:59 CLS Outpatient [id number] 02/03/2013 08:59:00 02/03/2013 23:59:59 CLS Outpatient [id number] 09/21/2018 10:15:00 PEN Preadmit DINA GREEN MD [facility] ENDO COLON MASS [id number] 05/12/2018 07:49:00 Document Registration [id number] 10/22/2014 07:37:00 Document Registration [id number] 10/22/2014 07:37:00 Document Registration [id number] 10/02/2009 12:59:00 Document Registration 05/24/18 09/18/2018 06:08:36 09/18/2018 23:59:59 CLS Outpatient Gloria Teixeira
[2018-09-21 09:48] VITALS: BP 126/92
[2018-09-21] MEDS ORDERED: LIDOCAINE JELLY 2% 6 ML SYRINGE ONE (10:00)
[2018-09-21] MEDS ORDERED: MIDAZOLAM 2 MG/2 ML (VERSED) VIAL ONE ×7 (10:00→10:43)
[2018-09-21] MEDS ORDERED: fentaNYL INJECTION 100 MCG/2 ML AMP ONE ×2 (10:00→10:55)
[2018-09-21] MEDS ORDERED: HURRICAINE EXT TUBE (BENZOCAINE) ONE (10:01)
--- NOTE | 2018-09-21 10:17 | Progress Note-Pre Operative ---
Pre-Operative Progress Note H&P Reviewed The H&P was reviewed, patient examined and no changes noted. Date Seen by Provider: Sep 21, 2018 Time Seen by Provider: 10:00 Date H&P Reviewed: Sep 21, 2018 Time H&P Reviewed: 10:00 Pre-Operative Diagnosis: sigmoid colon lesion, GERD DINA GREEN MD Sep 21, 2018 10:17
--- NOTE | 2018-09-21 10:17 | Conscious Sedation/ASA ---
Conscious Sedation Pre-Proced Time 10:00 ASA Score 2 For ASA 3 and 4: Consider anesthesia and medical clearance. Also, for patients with a history of failed moderate sedation consider anesthesia. Airway Lungs Heart ASA score ASA 1: a normal healthy patient ASA 2: a patient with a mild systemic disease (mid diabetes, controlled hypertension, obesity ASA 3: a patient with a severe systemic disease that limits activity (angina , COPD, prior Myocardial infarction) ASA 4: a patient with an incapacitating disease that is a constant threat to life (CHF, renal failure) ASA 5: a moribund patient not expected to survive 24 hrs. (ruptured aneurysm) ASA 6: a declared brain patient whose organs are being harvested. For emergent operations, add the letter E after the classification Mallampati Classification Grade 3 Sedation Plan Analgesia, Amnesia, Plan communicated to team members, Discussed options with patient/fam, Discussed risks with patient/fam The patient is an appropriate candidate to undergo the planned procedure, sedation, and anesthesia. The patient immediately re-assessed prior to indication. DINA GREEN MD Sep 21, 2018 10:16
[2018-09-21] MEDS ORDERED: ONDANSETRON 4 MG/2 ML (SDV) Z0FRAN IV PRN (10:30)
[2018-09-21] MEDS ORDERED: morphine INJ 10 MG/ML 1ML (SYR OR VIAL) IV PRN (10:30)
[2018-09-21] MEDS ORDERED: ACETAMINOPHEN 325 MG TABLET PO PRN (10:30)
[2018-09-21] MEDS ORDERED: HYDROcodone/APAP 5 MG/325 MG (LORTAB) TAB PO PRN (10:30)
[2018-09-21 11:30] VITALS: BP 123/69
[2018-09-21 12:00] VITALS: BP 133/94
[2018-09-21 12:15] VITALS: BP 133/94
--- NOTE | 2018-09-21 12:45 | Progress Note-Post Operative ---
Post-Operative Progess Note Surgeon (s)/Saw Edge Fuser Circular (s) Surgeon DINA GREEN MD Saw Edge Fuser Circular: none Pre-Operative Diagnosis sigmoid colon lesion, GERD Post-Operative Diagnosis reflux esophagitis(stage 2), small HH(1.5cm), moderate gastritis. 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 Procedure & Operative Findings Date of Procedure 09/21/18 Procedure Performed/Findings EGD with bx. Colonoscopy with bx. Anesthesia Type CS Estimated Blood Loss Estimated blood loss (mL): minimal Specimens/Packing Specimens Removed GE jxn, antrum, sigmoid colon lesion. DINA GREEN MD Sep 21, 2018 12:45
--- NOTE | 2018-09-21 20:11 | OPERATIVE REPORT ---
DATE OF SERVICE: 09/21/2018 ATTENDING PRIMARY CARE PHYSICIAN: Gloria Teixeira DO. PREOPERATIVE DIAGNOSES: Gastroesophageal reflux disease, sigmoid colonic lesion. POSTOPERATIVE DIAGNOSES: Reflux esophagitis, stage II. Small hiatal hernia identified to be approximately 1-1.5 cm. Moderate severity gastritis. No distal obstructions. Moderate sigmoid diverticulosis. A well-encapsulated submucosal lesion of the sigmoid colon, which appears to be benign hamartoma. Remainder of the colon was normal. PROCEDURES PERFORMED: Esophagogastroduodenoscopy with biopsy, colonoscopy with biopsy. SURGEON: Dina Green MD. ANESTHESIA: Conscious sedation. ESTIMATED BLOOD LOSS: Minimal. FINDINGS: Reflux esophagitis, stage II, small hiatal hernia, approximately 1.5 cm in size and moderate severity gastritis. No formal ulcerations, polyps or any neoplasms. Pylorus and duodenum appeared normal and no distal obstructions. Colonoscopy, no significant hemorrhoids identified. There was moderate sigmoid diverticulosis with no mucosal inflammatory change to indicate any active diverticulitis. There was also a submucosal lesion with smooth borders, approximately 1.5 cm in size, which appeared to be a benign hamartoma. The remainder of the colon was normal. There were no polyps or any neoplasms identified. DISPOSITION: The patient tolerated the procedure well. INDICATIONS: The patient is a 48-year-old female, known to us. We have seen her for gastroesophageal reflux disease and underwent an EGD in 2016, and was found to have a reflux esophagitis, stage II as well as a small to moderate size hiatal hernia as well as a moderate to severe gastritis. She was placed on medical therapy. She was found to have bilateral ovarian cyst and these grew larger in size over time. She was referred to Gynecologic Oncology at 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 During the surgery, the surgeon indicated a point of thickening of the sigmoid colon. Upon further questioning, she does not report any family history of colon cancer; however, does have a family history of breast cancer. She states that for the most part she was having normal bowel movements with no red blood per rectum nor any dark tarry stools. DESCRIPTION OF PROCEDURE: The patient was brought to the endoscopy suite, laid in the left lateral decubitus position with head slightly elevated. After adequate IV pain and sedating medications and conscious sedation anesthesia, the mouthpiece was applied. Endoscope was placed in the mouth, visualizing the pharynx and hypopharyngeal region. Vocal cords, epiglottis and vallecula identified and appeared to be normal. Endoscope was then gently intubated at the esophageal opening and esophagus insufflated. Endoscope was then advanced through the first, second and third portions of the esophagus at the level of the GE junction, reflux esophagitis, stage II identified. There were no ulcers or strictures identified in this region. A biopsy was taken using forceps with visualization of good hemostasis. The endoscope was then advanced in the stomach and endoscope retroflexed, visualizing a small to moderate size hiatal hernia, approximately 1.5 cm in size. There was a moderate severity gastritis. There were no formal ulcerations, polyps or any neoplasms. A biopsy was taken of the stomach antrum with forceps to rule out H. pylori. The endoscope was then advanced to the pylorus and the first and second portions of duodenum, which appeared normal with no distal obstructions. The endoscope was then slowly withdrawn while taking a second look and suctioning of residual air with no additional findings. The patient tolerated this portion of procedure well. For her reflux esophagitis and gastritis, we will have her continue with medical management with the necessary lifestyle and diet accommodation, including small and more frequent meals, avoidance of eating at night as well as head elevation while lying supine. She also needs to avoid caffeinated beverages, spicy, greasy and acidic foods as well as to proceed with any form of diet and exercise modality for weight maintenance which should improve her symptoms. Under the same anesthesia, we then proceeded with the colonoscopy portion of procedure. A digital rectal examination was performed, which did not reveal any significant external or internal hemorrhoids. Normal sphincter tone was felt and there were no palpable masses. The endoscope was then intubated to the anus and the anus and rectum gently insufflated. The endoscope was then advanced through the valves of [place] in the rectum with no polyps or any neoplasms identified. Through the sigmoid colon, a moderate sigmoid diverticulosis identified. There were no mucosal inflammatory changes to indicate any active diverticulitis. The endoscope was then further advanced and at the sigmoid colon level, a submucosal lesion approximately 1.5 cm with smooth regular borders identified consistent with a benign hamartoma. A biopsy was taken with forceps with visualization of good hemostasis. The endoscope was then advanced to the remainder of the descending, transverse and ascending colon to the cecum. These segments were normal. There were no other lesions identified throughout the colon or rectum. The endoscope was then slowly withdrawn while taking a second look and suctioning of residual air with no additional findings. The patient tolerated the procedure well. We will await the biopsy results; however, we feel that the lesion is benign. She does have a strong family history of cancers in general and if she would like to pursue followup colonoscopies every 5 years, we will have her follow up in the office in the next 2 to 4 weeks to discuss the biopsies as well as the findings. Job ID: [id number] DocumentID: [id number] Dictated Date: 09/21/2018 11:36:31 Reimbursement Spec Date: 09/21/2018 20:10:54 Dictated By: DINA GREEN MD
== END 2018-09-21 12:15 | disposition home or self-care (01) ==
LOC: ENDO 09:10
PROVIDERS: ATTEND Surgery
DX: K21.0 Gastro-esophageal reflux disease with esophagitis (principal); K63.5 Polyp of colon; K44.9 Diaphragmatic hernia without obstruction or gangrene; K29.70 Gastritis, unspecified, without bleeding; K57.30 Diverticulosis of large intestine without perforation or abscess without bleeding; E78.00 Pure hypercholesterolemia, unspecified; F41.9 Anxiety disorder, unspecified; F32.9 Major depressive disorder, single episode, unspecified; K27.9 Peptic ulcer, site unspecified, unspecified as acute or chronic, without hemorrhage or perforation; Z79.899 Other long term (current) drug therapy; Z79.84 Long term (current) use of oral hypoglycemic drugs; Z85.3 Personal history of malignant neoplasm of breast; Z80.1 Family history of malignant neoplasm of trachea, bronchus and lung

== ENCOUNTER 2019-03-30 05:34 | Outpatient (CLI) | payer BC ==
[~2019-03-30] VITALS: Ht 167.6 cm; Wt 136.1 kg
[2019-03-30] MEDS ORDERED: MONT10TA24 PO (11:47)
[2019-03-30] MEDS ORDERED: LIFI1DRO OP (11:47)
[2019-03-30] MEDS ORDERED: RT-ALBUINH IH (11:48)
== END 2019-03-30 13:19 | disposition home or self-care (01) ==
LOC: PREOP 05:34
PROVIDERS: ATTEND Orthopaedic Surgery
DX: Z01.818 Encounter for other preprocedural examination (principal)

== ENCOUNTER 2019-04-05 08:31 | Day surgery (SDC) | payer BC ==
--- NOTE | 2019-03-28 17:56 | HISTORY AND PHYSICAL ---
DATE OF SERVICE: ADMISSION HISTORY AND PHYSICAL Outpatient surgery at hospital on 04/05/2019 for left knee arthroscopy. HISTORY OF PRESENT ILLNESS: The patient is a 48-year-old female with several month history of progressively worsening left medial and posterior knee pain. She reports swelling. She reports pain with range of motion. She reports it has been progressive in nature due to functional impairment and failure to improve with conservative measures, the patient elected to proceed with surgical intervention. REVIEW OF SYSTEMS: No chest pain or shortness of breath. No dysuria. PAST MEDICAL HISTORY: Hyperlipidemia, diabetes mellitus and reactive airway disease. PAST SURGICAL HISTORY: Right ankle feet, left wrist, tonsillectomy, appendectomy, and cholecystectomy. FAMILY HISTORY: Noncontributory. PRIMARY CARE PROVIDER: Dr. Teixeira. MEDICATIONS: Inderal, Lexapro, Trazodone, buspirone, Protonix, metformin, meloxicam, Symbicort, Singulair ProAir. ALLERGIES: NAPROSYN AND IBUPROFEN. SOCIAL HISTORY: The patient drinks alcohol socially. Denies tobacco use. RADIOGRAPHS: Revealed mild to moderate medial and patellofemoral joint space narrowing of the left knee. PHYSICAL EXAMINATION: GENERAL: The patient is a well-developed, well-nourished, in no acute distress. HEENT: Normocephalic, atraumatic. Pupils are equal, round and reactive to light. Oropharynx is clear. NECK: Supple, no lymphadenopathy. LUNGS: Clear to auscultation bilaterally. HEART: Regular rate and rhythm. ABDOMEN: Soft, nontender, nondistended. EXTREMITIES: Left knee demonstrates moderate effusion. She is tender along the medial joint line. She has pain medially with Essie's. There is no varus valgus laxity. Negative anterior and posterior drawer. She ambulates with an antalgic gait. There is crepitus with patellar loading and pain elicited. 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 PLAN: Left knee arthroscopy, partial medial meniscectomy and chondroplasty. The risks, benefits, options, ramifications and recovery were discussed at length with the patient. She understands and wishes to proceed. Date of service or date of surgery will be 04/05/2019. Job ID: [id number] DocumentID: [id number] Dictated Date: 03/27/2019 16:29:18 Staining Machine Operator Date: 03/27/2019 16:51:20 Dictated By: RANI LOPEZ MD
[~2019-04-05] VITALS: Ht 167.6 cm; Wt 136.1 kg
[2019-04-05] VITALS (10 sets, daily range): BP systolic 93–139; BP diastolic 59–85
[~2019-04-05 08:31] MED LIST changes: +LIFI1DRO OP; +MONT10TA24 PO; +RT-ALBUINH IH
--- OUTSIDE RECORDS SUMMARY | 2019-04-05 08:39 | XMS REPORT | Continuity of Care Document ---
Author Organization Unknown Address Unknown Allergies Active Description Code Type Severity Reaction Onset Reported/Identified Relationship to Patient Clinical Status Yes NO KNOWN DRUG ALLERGIES UNKNOWN NO KNOWN DRUG ALLERG Yes No Known Drug Allergies [id number] Drug Allergy Unknown N/A 03/12/2010 Yes ibuprofen [id number] Drug Allergy Mild GI UPSET 03/30/2019 Medications There is no data. Problems Date Dx Coded Attending Type Code Diagnosis Diagnosed By 06/11/2013 SAUL FRASER Ot 276.51 DEHYDRATION 06/11/2013 SAUL FRASER Ot 574.20 CHOLELITHIASIS NOS 06/11/2013 SAUL FRASER Ot 599.0 URIN TRACT INFECTION NOS 06/11/2013 SAUL FRASER Ot 787.02 NAUSEA ALONE 06/11/2013 SAUL FRASER Ot 789.01 ABDOMINAL PAIN, RIGHT UPPER QUADRANT 06/15/2013 NICOLE DELGADO DOLINE S Ot 276.8 HYPOPOTASSEMIA 06/15/2013 KAYLEY DELGADO DOQUELINE S Ot 300.00 ANXIETY STATE NOS 06/15/2013 ROMÁNNDKAYLEY ABARCA DOQUELINE S Ot 311 DEPRESSIVE DISORDER NEC 06/15/2013 KAYLEY DELGADO DOQUELINE S Ot 401.9 HYPERTENSION NOS 06/15/2013 ROMÁNNDKAYLEY ABARCA DOQUELINE S Ot 530.81 ESOPHAGEAL REFLUX 06/15/2013 ROMÁNNDKAYLEY ABARCA DOQUELINE S Ot 536.2 PERSISTENT VOMITING 06/15/2013 ORENDER DOKAYLEYNANCY S Ot 573.8 LIVER DISORDERS NEC 06/15/2013 ROMÁNNDTEVIN DOKAYLEYNANCY S Ot 574.20 CHOLELITHIASIS NOS 06/15/2013 ROMÁNNDKAYLEY ABARCA DOQUELINE S Ot 593.9 RENAL URETERAL DIS NOS 10/22/2014 Ot 511.9 10/22/2014 Ot 805.4 10/22/2014 Ot E000.8 10/22/2014 Ot E030 10/22/2014 Ot E819.9 10/22/2014 KARTHIK DANIEL NETWORK DEVELOPMENT COORDINATOR Ot 574.20 10/22/2014 KARTHIK DANIEL NETWORK DEVELOPMENT COORDINATOR Ot 789.06 10/28/2014 LEONORA CHAIREZ, SHAQUILLE Hahn Ot 599.0 URIN TRACT INFECTION NOS 10/28/2014 LEONORA CHAIREZ, SHAQUILLE Hahn Ot 787.01 NAUSEA WITH VOMITING 10/29/2014 Ot 511.9 10/29/2014 Ot 805.4 10/29/2014 Ot E000.8 10/29/2014 Ot E030 10/29/2014 Ot E819.9 10/29/2014 KARTHIK DANIEL NETWORK DEVELOPMENT COORDINATOR Ot 574.20 10/29/2014 SHAHBAZKRISSYKARTHIK ARORA NETWORK DEVELOPMENT COORDINATOR Ot 789.06 10/30/2014 PETER CHAIREZ, DINA Ot 530.11 REFLUX ESOPHAGITIS 10/30/2014 DINA GREEN MD Ot 535.40 OTH SPECIFIED GASTRITIS,W/O MENTION OF H 10/30/2014 DINA GREEN MD Ot 553.3 DIAPHRAGMATIC HERNIA 11/05/2014 NICOLE DELGADO DOLINE S Ot 276.0 HYPEROSMOLALITY 11/05/2014 SANDY MOULTON NANCY S Ot 276.8 HYPOPOTASSEMIA 11/05/2014 KAYLEY DELGADO DOQUELINE S Ot 535.50 UNSP GASTRITIS GASTRODUODENITIS W/O ME 11/05/2014 NICOLE DELGADO DOLINE S Ot 536.2 PERSISTENT VOMITING 01/23/2015 JERALD CHAIREZ, PACO Hdz Ot V72.84 08/09/2015 ALISTAIRKARTHIK MANDEL NETWORK DEVELOPMENT COORDINATOR Ot 574.20 08/09/2015 SHAHBAZKRISSYKARTHIK ARORA NETWORK DEVELOPMENT COORDINATOR Ot 789.06 08/09/2015 JERALD CHAIREZ, PACO Hdz Ot V72.84 12/04/2015 KATE UMANZOR APRN Ot R07.89 OTHER CHEST PAIN 12/20/2015 PRABHJOT SEN MD Ot E11.9 TYPE 2 DIABETES MELLITUS WITHOUT COMPLIC 12/20/2015 PRABHJOT SEN MD Ot R10.13 EPIGASTRIC PAIN 12/20/2015 LAC VIEUX MD, PRABHJOT D Ot R11.2 NAUSEA WITH VOMITING, UNSPECIFIED 12/20/2015 VANKRISSYMAITE, KARTHIK M NETWORK DEVELOPMENT COORDINATOR Ot 574.20 12/20/2015 VANALINA, KARTHIK M NETWORK DEVELOPMENT COORDINATOR Ot 789.06 12/20/2015 JERALD CHAIREZ, PACO Hdz Ot V72.84 12/22/2015 KATE UMANZOR CITRIX ENGINEER Ot E11.9 TYPE 2 DIABETES MELLITUS WITHOUT COMPLIC 12/22/2015 KATE UMANZOR CITRIX ENGINEER Ot K29.70 GASTRITIS, UNSPECIFIED, WITHOUT BLEEDING 12/22/2015 KATE UMANZOR CITRIX ENGINEER Ot R53.81 OTHER MALAISE 12/22/2015 KATE UMANZOR CITRIX ENGINEER Ot Z79.899 OTHER MUCK BOSS (CURRENT) DRUG THERAPY 12/23/2015 CMKINLEY CHAIREZ, PRABHJOT D Ot E11.9 12/23/2015 MCKINLEY CHAIREZ, PRABHJOT D Ot R10.13 12/23/2015 MCKINLEY CHAIREZ, PRABHJOT D Ot R11.2 12/30/2015 MARÍA KARTHIK M NETWORK DEVELOPMENT COORDINATOR Ot 574.20 12/30/2015 VANKEYRE KARTHIK M NETWORK DEVELOPMENT COORDINATOR Ot 789.06 12/30/2015 JERALD CHAIREZ, PACO Hdz Ot V72.84 01/09/2016 KATE UMANZOR APRN Ot E11.9 01/09/2016 KATE UMANZOR APRN Ot K29.70 01/09/2016 KATE UMANZOR APRN Ot R53.81 01/09/2016 KATE UMANZOR CITRIX ENGINEER Ot Z79.899 01/09/2016 VANBECELAERE, KARTHIK M NETWORK DEVELOPMENT COORDINATOR Ot 574.20 01/09/2016 VANBECELAERE KARTHIK M NETWORK DEVELOPMENT COORDINATOR Ot 789.06 01/09/2016 JERALD CHAIREZ, PACO Hdz Ot V72.84 01/11/2016 JOHN STRONG APRN Ot K29.70 07/07/2016 VANBECELAERE, KARTHIK M NETWORK DEVELOPMENT COORDINATOR Ot 574.20 CHOLELITHIASIS NOS 07/07/2016 VANBECELAERE, KARTHIK M NETWORK DEVELOPMENT COORDINATOR Ot 789.06 ABDOMINAL PAIN, EPIGASTRIC 07/07/2016 JERALD CHAIREZ, PACO Hdz Ot V72.84 EXAM PRE-OPERATIVE NOS 07/07/2016 TAE, JOHN L CITRIX ENGINEER Ot K29.70 GASTRITIS, UNSPECIFIED, WITHOUT BLEEDING 11/03/2017 BHAVNA BENITEZ R CITRIX ENGINEER Ot R05 COUGH 11/03/2017 ELISHELBIE GOTTICHRISTY Linder CITRIX ENGINEER Ot R05 COUGH 11/03/2017 PRABHJOT SEN MD, Ot E11.9 TYPE 2 DIABETES MELLITUS WITHOUT COMPLIC 11/03/2017 PRABHJOT SEN MD, Ot F32.9 MAJOR DEPRESSIVE DISORDER, SINGLE EPISOD 11/03/2017 PRABHJOT SEN MD Ot R10.11 RIGHT UPPER QUADRANT PAIN 11/03/2017 PRABHJOT SEN MD Ot R10.12 LEFT UPPER QUADRANT PAIN 11/03/2017 PRABHJOT SEN MD Ot R11.2 NAUSEA WITH VOMITING, UNSPECIFIED 11/03/2017 PRABHJOT SEN MD, Ot Z79.84 MUCK BOSS (CURRENT) USE OF ORAL HYPOGLYC 11/03/2017 PRABHJOT SEN MD Ot Z80.3 FAMILY HISTORY OF MALIGNANT NEOPLASM OF 11/03/2017 PRABHJOT SEN MD, Ot Z87.19 PERSONAL HISTORY OF OTHER DISEASES OF 11/03/2017 PRABHJOT SEN MD, Ot Z87.440 PERSONAL HISTORY OF URINARY (TRACT) INFE 11/03/2017 PRABHJOT SEN MD, Ot Z90.49 ACQUIRED ABSENCE OF OTHER SPECIFIED PART 11/03/2017 PRABHJOT SEN MD Ot Z90.89 ACQUIRED ABSENCE OF OTHER ORGANS 11/05/2017 PRABHJOT SEN MD, Ot E11.9 TYPE 2 DIABETES MELLITUS WITHOUT COMPLIC 11/05/2017 PRABHJOT SEN MD, Ot F32.9 MAJOR DEPRESSIVE DISORDER, SINGLE EPISOD 11/05/2017 PRABHJOT SEN MD Ot R10.11 RIGHT UPPER QUADRANT PAIN 11/05/2017 PRABHJOT SEN MD Ot R10.12 LEFT UPPER QUADRANT PAIN 11/05/2017 PRABHJOT SEN MD Ot R11.2 NAUSEA WITH VOMITING, UNSPECIFIED 11/05/2017 PRABHJOT SEN MD Ot Z79.84 MUCK BOSS (CURRENT) USE OF ORAL HYPOGLYC 11/05/2017 PRABHJOT SEN MD Ot Z80.3 FAMILY HISTORY OF MALIGNANT NEOPLASM OF 11/05/2017 PRABHJOT SEN MD Ot Z87.19 PERSONAL HISTORY OF OTHER DISEASES OF TH 11/05/2017 PRABHJOT SEN MD, Ot Z87.440 PERSONAL HISTORY OF URINARY (TRACT) INFE 11/05/2017 PRABHJOT SEN MD, Ot Z90.49 ACQUIRED ABSENCE OF OTHER SPECIFIED PART 11/05/2017 PRABHJOT SEN MD, Ot Z90.89 ACQUIRED ABSENCE OF OTHER ORGANS 11/11/2017 BHAVNA BENITEZ R CITRIX ENGINEER Ot R05 COUGH 02/11/2018 VANALINAMARISA M NETWORK DEVELOPMENT COORDINATOR Ot 574.20 CHOLELITHIASIS NOS 02/11/2018 VANBECLATESHAREMARISA M NETWORK DEVELOPMENT COORDINATOR Ot 789.06 ABDOMINAL PAIN, EPIGASTRIC 02/11/2018 JERALD CHAIREZ, PACO Hdz Ot V72.84 EXAM PRE-OPERATIVE NOS 02/11/2018 TAE JOHN L CITRIX ENGINEER Ot K29.70 GASTRITIS, UNSPECIFIED, WITHOUT BLEEDING 02/11/2018 BHAVNA BENITEZ R CITRIX ENGINEER Ot R05 COUGH 03/02/2018 VANBECELAEREMARISA M NETWORK DEVELOPMENT COORDINATOR Ot 574.20 CHOLELITHIASIS NOS 03/02/2018 VANBECELAEREMARISA M NETWORK DEVELOPMENT COORDINATOR Ot 789.06 ABDOMINAL PAIN, EPIGASTRIC 03/02/2018 JERALD CHAIREZ, PACO Hdz Ot V72.84 EXAM PRE-OPERATIVE NOS 03/02/2018 JOHN STRONG L CITRIX ENGINEER Ot K29.70 GASTRITIS, UNSPECIFIED, WITHOUT BLEEDING 03/02/2018 BHAVNA BENITEZ R CITRIX ENGINEER Ot R05 COUGH 03/02/2018 SHAQUILLE LEA MD Ot E11.9 TYPE 2 [...] Ot R11.2 NAUSEA WITH VOMITING, UNSPECIFIED 03/02/2018 SHAQUILLE LEA MD Ot Z79.84 NURSING HOME (CURRENT) USE OF ORAL HYPOGLYC 03/02/2018 SHAQUILLE [...] UNSPECIFIED 03/04/2018 SHAQUILLE LEA MD Ot Z79.84 NURSING HOME (CURRENT) USE OF ORAL HYPOGLYC 03/04/2018 SHAQUILLE LEA MD Ot Z80.3 FAMILY HISTORY OF MALIGNANT NEOPLASM OF 03/04/2018 SHAQUILLE LEA MD Ot Z87.19 PERSONAL HISTORY OF OTHER DISEASES OF 03/04/2018 SHAQUILLE LEA MD Ot Z87.440 PERSONAL HISTORY OF URINARY (TRACT) INFE 03/04/2018 SHAQUILLE LEA MD Ot Z90.89 ACQUIRED ABSENCE OF OTHER ORGANS 03/08/2018 SHAQUILLE LEA MD Ot E11.9 TYPE 2 DIABETES MELLITUS WITHOUT COMPLIC 03/08/2018 SHAQUILLE LEA MD Ot F32.9 MAJOR DEPRESSIVE DISORDER, SINGLE EPISOD 03/08/2018 SHAQUILLE LEA MD Ot F41.9 ANXIETY DISORDER, UNSPECIFIED 03/08/2018 LEONORA CHAIREZ, SHAQUILLE Hahn Ot N83.291 OTHER OVARIAN CYST, RIGHT SIDE 03/08/2018 LEONORA CHAIREZ, SHAQUILLE Hahn Ot N83.292 OTHER OVARIAN CYST, LEFT SIDE 03/08/2018 LEONORA CHAIREZ, SHAQUILLE Hahn Ot R11.2 NAUSEA WITH VOMITING, UNSPECIFIED 03/08/2018 LEONORA CHAIREZ, SHAQUILLE Hahn Ot Z79.84 NURSING HOME (CURRENT) USE OF ORAL HYPOGLYC 03/08/2018 LEONORA CHAIREZ, SHAQUILLE Hahn Ot Z80.3 FAMILY HISTORY OF MALIGNANT NEOPLASM OF 03/08/2018 LEONORA CHAIREZ, SHAQUILLE Hahn Ot Z87.19 PERSONAL HISTORY OF OTHER DISEASES OF 03/08/2018 SHAQUILLE LEA MD Ot Z87.440 PERSONAL HISTORY OF URINARY (TRACT) INFE 03/08/2018 LEONORA CHAIREZ, SHAQUILLE Hahn Ot Z90.89 ACQUIRED ABSENCE OF OTHER ORGANS 06/10/2018 NANCY DELGADO DO S Ot R06.09 OTHER FORMS OF DYSPNEA 07/07/2018 MILAGROS CASTILLO CITRIX ENGINEER Ot G47.9 SLEEP DISORDER, UNSPECIFIED 07/07/2018 MILAGROS CASTILLO CITRIX ENGINEER Ot R06.00 DYSPNEA, UNSPECIFIED 07/07/2018 MILAGROS CASTILLO CITRIX ENGINEER Ot G47.9 SLEEP DISORDER, UNSPECIFIED 07/07/2018 MILAGROS CASTILLO CITRIX ENGINEER Ot R06.00 DYSPNEA, UNSPECIFIED 07/19/2018 KARTHIK DANIEL NETWORK DEVELOPMENT COORDINATOR Ot 574.20 CHOLELITHIASIS NOS 07/19/2018 KARTHIK DANIEL NETWORK DEVELOPMENT COORDINATOR Ot 789.06 ABDOMINAL PAIN, EPIGASTRIC 07/19/2018 JERALD CHAIREZ, PACO Hdz Ot V72.84 EXAM PRE-OPERATIVE NOS 07/19/2018 JOHN STRONG CITRIX ENGINEER Ot K29.70 GASTRITIS, UNSPECIFIED, WITHOUT BLEEDING 07/19/2018 BHAVNA BENITEZ CITRIX ENGINEER Ot R05 COUGH 07/19/2018 Ot J40 BRONCHITIS, NOT SPECIFIED ACUTE OR CH 07/19/2018 NANCY DELGADO DO S Ot R06.09 OTHER FORMS OF DYSPNEA 07/19/2018 MILAGROS CASTILLO CITRIX ENGINEER Ot G47.9 SLEEP DISORDER, UNSPECIFIED 07/19/2018 MILAGROS CASTILLO CITRIX ENGINEER Ot R06.00 DYSPNEA, UNSPECIFIED 07/21/2018 MILAGROS CASTILLO CITRIX ENGINEER Ot G47.9 SLEEP DISORDER, UNSPECIFIED 07/21/2018 MILAGROS CASTILLO E CITRIX ENGINEER Ot R06.00 DYSPNEA, UNSPECIFIED 07/25/2018 BHAVNA BENITEZ CITRIX ENGINEER Ot R05 COUGH 09/15/2018 DINA GREEN MD Ot Z01.818 ENCOUNTER FOR OTHER PREPROCEDURAL EXAMIN 09/19/2018 DINA GREEN MD Ot Z01.818 ENCOUNTER FOR OTHER PREPROCEDURAL EXAMIN 09/19/2018 DINA GREEN MD, Ot Z01.818 ENCOUNTER FOR OTHER PREPROCEDURAL EXAMIN 09/21/2018 Ot J40 BRONCHITIS, NOT SPECIFIED ACUTE OR CH 09/21/2018 DINA GREEN MD Ot E78.00 PURE HYPERCHOLESTEROLEMIA, UNSPECIFIED 09/21/2018 DINA GREEN MD Ot F32.9 MAJOR DEPRESSIVE DISORDER, SINGLE EPISOD 09/21/2018 DINA GREEN MD, Ot F41.9 ANXIETY DISORDER, UNSPECIFIED 09/21/2018 DINA GREEN MD Ot K21.0 GASTRO-ESOPHAGEAL REFLUX DISEASE WITH ES 09/21/2018 DINA GREEN MD, Ot K27.9 PEPTIC ULC, SITE UNSP, UNSP AC OR CHR 09/21/2018 DINA GREEN MD Ot K29.70 GASTRITIS, UNSPECIFIED, WITHOUT BLEEDING 09/21/2018 DINA GREEN MD Ot K44.9 DIAPHRAGMATIC HERNIA WITHOUT OBSTRUCTION 09/21/2018 DINA GREEN MD Ot K57.30 DVRTCLOS OF LG INT W/O PERFORATION OR AB 09/21/2018 DINA GREEN MD, Ot K63.5 POLYP OF COLON 09/21/2018 DINA GREEN MD, Ot Z79.84 MUCK BOSS (CURRENT) USE OF ORAL HYPOGLYC 09/21/2018 DINA GREEN MD, Ot Z79.899 OTHER NURSING HOME (CURRENT) DRUG THERAPY 09/21/2018 DINA GREEN MD, Ot Z80.1 FAMILY HISTORY OF MALIG NEOPLASM OF TRAC 09/21/2018 KIDO MD, TAKAAKI Ot Z85.3 PERSONAL HISTORY OF MALIGNANT NEOPLASM O 09/23/2018 DINA GREEN MD Ot E78.00 PURE HYPERCHOLESTEROLEMIA, UNSPECIFIED 09/23/2018 DINA GREEN MD, Ot F32.9 MAJOR DEPRESSIVE DISORDER, SINGLE EPISOD 09/23/2018 DINA GREEN MD, Ot F41.9 ANXIETY DISORDER, UNSPECIFIED 09/23/2018 DINA GREEN MD Ot K21.0 GASTRO-ESOPHAGEAL REFLUX DISEASE WITH ES 09/23/2018 DINA GREEN MD Ot K27.9 PEPTIC ULC, SITE UNSP, UNSP AC OR CHR 09/23/2018 DINA GREEN MD Ot K29.70 GASTRITIS, UNSPECIFIED, WITHOUT BLEEDING 09/23/2018 DINA GREEN MD, Ot K44.9 DIAPHRAGMATIC HERNIA WITHOUT OBSTRUCTION 09/23/2018 DINA GREEN MD, Ot K57.30 DVRTCLOS OF LG INT W/O PERFORATION OR AB 09/23/2018 DINA GREEN MD Ot K63.5 POLYP OF COLON 09/23/2018 DINA GREEN MD Ot Z79.84 NURSING HOME (CURRENT) USE OF ORAL HYPOGLYC 09/23/2018 DINA GREEN MD Ot Z79.899 OTHER NURSING HOME (CURRENT) DRUG THERAPY 09/23/2018 DINA GREEN MD Ot Z80.1 FAMILY HISTORY OF MALIG NEOPLASM OF TRAC 09/23/2018 DINA GREEN MD Ot Z85.3 PERSONAL HISTORY OF MALIGNANT NEOPLASM O 09/27/2018 DINA GREEN MD Ot E78.00 PURE HYPERCHOLESTEROLEMIA, UNSPECIFIED 09/27/2018 DINA GREEN MD, Ot F32.9 MAJOR DEPRESSIVE DISORDER, SINGLE EPISOD 09/27/2018 DINA GREEN MD, Ot F41.9 ANXIETY DISORDER, UNSPECIFIED 09/27/2018 DINA GREEN MD Ot K21.0 GASTRO-ESOPHAGEAL REFLUX DISEASE WITH ES 09/27/2018 DINA GREEN MD, Ot K27.9 PEPTIC ULC, SITE UNSP, UNSP AC OR CHR 09/27/2018 DINA GREEN MD Ot K29.70 GASTRITIS, UNSPECIFIED, WITHOUT BLEEDING 09/27/2018 DINA GREEN MD Ot K44.9 DIAPHRAGMATIC HERNIA WITHOUT OBSTRUCTION 09/27/2018 DINA GREEN MD, Ot K57.30 DVRTCLOS OF LG INT W/O PERFORATION OR AB 09/27/2018 DINA GREEN MD, Ot K63.5 POLYP OF COLON 09/27/2018 DINA GREEN MD, Ot Z79.84 NURSING HOME (CURRENT) USE OF ORAL HYPOGLYC 09/27/2018 DINA GREEN MD, Ot Z79.899 OTHER MUCK BOSS (CURRENT) DRUG THERAPY 09/27/2018 DINA GREEN MD, Ot Z80.1 FAMILY HISTORY OF MALIG NEOPLASM OF TRAC 09/27/2018 DINA GREEN MD, Ot Z85.3 PERSONAL HISTORY OF MALIGNANT NEOPLASM O 10/05/2018 NANCY DELGADO DO Ot R06.09 OTHER FORMS OF DYSPNEA 12/15/2018 NIKO MORAN W 272.4 OTHER AND UNSPECIFIED HYPERLIPIDEMIA 12/15/2018 NIKO MORAN W 401.0 MALIGNANT ESSENTIAL HYPERTENSION 12/15/2018 NIKO MORAN W 790.6 OTHER ABNORMAL BLOOD CHEMISTRY 12/15/2018 NIKO MORAN W E78.5 HYPERLIPIDEMIA, UNSPECIFIED 12/15/2018 MORAN, NIKO W I10 ESSENTIAL (PRIMARY) HYPERTENSION 12/15/2018 NIKO MORAN W R73.9 HYPERGLYCEMIA, UNSPECIFIED 12/15/2018 NIKO MORAN W 272.4 OTHER AND UNSPECIFIED HYPERLIPIDEMIA 12/15/2018 LUISA NIKO W 401.0 MALIGNANT ESSENTIAL HYPERTENSION 12/15/2018 NIKO MORAN W 790.6 OTHER ABNORMAL BLOOD CHEMISTRY 12/15/2018 NIKO MORAN W E78.5 HYPERLIPIDEMIA, UNSPECIFIED 12/15/2018 MORAN, NIKO W I10 ESSENTIAL (PRIMARY) HYPERTENSION 12/15/2018 NIKO MORAN W R73.9 HYPERGLYCEMIA, UNSPECIFIED 02/03/2019 JERALD CHAIREZ, PACO Hdz Ot V72.84 EXAM PRE-OPERATIVE NOS 02/03/2019 JOHN STRONG CITRIX ENGINEER Ot K29.70 GASTRITIS, UNSPECIFIED, WITHOUT BLEEDING 02/03/2019 BHAVNA BENITEZ CITRIX ENGINEER Ot R05 COUGH 02/03/2019 Ot J40 BRONCHITIS, NOT SPECIFIED ACUTE OR CH 02/03/2019 NANCY DELGADO DO S Ot R06.09 OTHER FORMS OF DYSPNEA 02/03/2019 MILAGROS CASTILLO CITRIX ENGINEER Ot G47.9 SLEEP DISORDER, UNSPECIFIED 02/03/2019 MILAGROS CASTILLO CITRIX ENGINEER Ot R06.00 DYSPNEA, UNSPECIFIED 03/28/2019 JERALD CHAIREZ, PACO Hdz Ot V72.84 EXAM PRE-OPERATIVE NOS 03/28/2019 JOHN STRONG CITRIX ENGINEER Ot K29.70 GASTRITIS, UNSPECIFIED, WITHOUT BLEEDING 03/28/2019 BHAVNA BENITEZ CITRIX ENGINEER Ot R05 COUGH 03/28/2019 Ot J40 BRONCHITIS, NOT SPECIFIED ACUTE OR CH 03/28/2019 NANCY DELGADO DO Ot R06.09 OTHER FORMS OF DYSPNEA 03/28/2019 MILAGROS CASTILLO APRN Ot G47.9 SLEEP DISORDER, UNSPECIFIED 03/28/2019 MILAGROS CASTILLO CITRIX ENGINEER Ot R06.00 DYSPNEA, UNSPECIFIED 03/30/2019 JESSICA CHAIREZ, RANI Dowd Ot Z01.818 ENCOUNTER FOR OTHER PREPROCEDURAL EXAMIN Procedures Code Description Performed By Performed On 51.23 LAPAROSCOPIC CHOLECYSTECTOMY 06/15/2013 Results Test Result Range Complete urinalysis with reflex to culture - 11/03/17 15:37 Urine color determination YELLOW NRG Urine clarity determination SLIGHTLY CLOUDY NRG Urine pH measurement by test strip 8 5-9 Specific gravity of urine by test strip 1.010 1.016-1.022 Urine protein assay by test strip, semi-quantitative [...] sediment leukocyte count by microscopy (number/high power field) [HPF] NRG Bacteria detection in urine sediment [...] Automated erythrocyte mean corpuscular hemoglobin concentration measurement (mass/volume) 35 g/dL 32-36 Automated erythrocyte distribution width ratio 13.8 % 10.0- 14.5 Automated blood platelet count (count/volume) 382 10*3/uL [...] Blood monocytes automated count (number/volume) 0.9 10*3 0.0- 1.0 Automated eosinophil count 0.0 10*3/uL 0.0-0.3 Automated [...] Serum or plasma aspartate aminotransferase measurement (enzymatic activity/volume) 20 U/L 5-34 Serum or plasma alanine aminotransferase measurement (enzymatic activity/volume) 26 U/L 0-55 Serum or plasma protein measurement (mass/volume) 7.6 g/dL 6.4-8.2 Serum or plasma albumin measurement (mass/volume) 4.5 g/dL 3.2-4.5 Magnesium - 11/03/17 15:43 Magnesium 2.0 mg/dL 1.8-2.4 Serum or plasma amylase measurement (enzymatic activity/volume) - 11/03/17 15:43 Serum or plasma amylase measurement (enzymatic activity/volume) 26 U/L 25-125 Lipase - 11/03/17 15:43 Lipase 11 [...] Automated erythrocyte mean corpuscular hemoglobin concentration measurement (mass/volume) 35 g/dL 32-36 Automated erythrocyte distribution width ratio 14.2 % 10.0- 14.5 Automated blood platelet count (count/volume) 386 10*3/uL [...] Blood monocytes automated count (number/volume) 0.8 10*3 0.0- 1.0 Automated eosinophil count 0.0 10*3/uL 0.0-0.3 Automated [...] Serum or plasma aspartate aminotransferase measurement (enzymatic activity/volume) 16 U/L 5-34 Serum or plasma alanine aminotransferase measurement (enzymatic activity/volume) 24 U/L 0-55 Serum or plasma protein [...] gravity of urine by test strip 1.020 1.016-1.022 Urine protein assay by test strip, semi-quantitative [...] sediment leukocyte count by microscopy (number/high power field) [HPF] NRG Bacteria detection in urine sediment [...] SEE COMMEN NRG COLONY COUNT . NRG Lab Card - 02/08/19 10:08 LabCard Specimen submitted to [facility] for Testing. Encounters ACCT No. Visit Date/Time Discharge Status Pt. Type Provider Facility Loc./Unit Complaint [id number] 02/08/2019 10:07:00 02/08/2019 23:59:00 DIS Outpatient NIKO MORAN [id number] 12/15/2018 17:27:00 12/15/2018 23:59:00 DIS Outpatient NIKO MORAN [id number] 03/30/2019 05:34:00 03/30/2019 13:19:00 DIS Outpatient JESSICA CHAIREZ, RANI Dowd [facility] PREOP LEFT KNEE MEDIAL MENISCUS TEAR [id number] 09/21/2018 09:10:00 09/21/2018 12:15:00 DIS Outpatient DINA GREEN MD [facility] ENDO COLON MASS [id number] 09/19/2018 11:00:00 09/19/2018 11:38:00 DIS Outpatient DINA GREEN MD [facility] PREOP COLONOSCOPY [id number] 07/05/2018 12:58:00 07/05/2018 23:59:59 CLS Outpatient MILAGROS CASTILLO [employer] ENGINEER [facility] CARD SLEEP DISORDER [id number] 05/23/2018 14:58:00 05/23/2018 23:59:59 CLS Outpatient NANCY DELGADO DO S [facility] RT DYSPNEA [id number] 03/02/2018 09:55:00 03/02/2018 16:17:00 DIS Emergency SHAQUILLE LEA MD [facility] ER ABD PAIN [id number] 11/03/2017 14:17:00 11/03/2017 18:52:00 DIS Emergency PRABHJOT SEN MD [facility] ER GASTRITIS/N/V/D [id number] 11/02/2017 10:26:00 11/02/2017 23:59:59 CLS Outpatient BHAVNA BENITEZ [employer] ENGINEER [facility] RAD COUGH,SOB [id number] 01/10/2016 06:44:00 01/10/2016 23:59:59 CLS Outpatient JOHN STRONG [employer] ENGINEER [facility] CARD NAUSEA,VOMITTING, GASTROPARESIS [id number] 12/22/2015 09:18:00 12/22/2015 12:53:00 DIS Emergency KATE UMANZOR [employer] ENGINEER [facility] ER R ARM TINGLING [id number] 12/20/2015 18:11:00 12/20/2015 20:52:00 DIS Emergency PRABHJOT SEN MD [facility] ER ABD PAIN [id number] 12/04/2015 10:42:00 12/04/2015 14:24:00 DIS Emergency UMANZORKATE APRN [facility] ER CHEST PAIN [id number] 11/03/2014 17:42:00 11/05/2014 17:45:00 DIS Inpatient ORENDER DO, NANCY S [facility] SURGICAL INTRACTABLE NAUSEA,VOMITING;GASTRITIS [id number] 10/29/2014 17:45:00 10/30/2014 12:43:00 DIS Outpatient DINA GREEN MD [facility] EPIGASTRIC PAIN;NAUSEA AND VOMITING [id number] 10/29/2014 14:52:00 10/29/2014 23:59:59 CLS Outpatient JERALD CHAIREZ, PACO Hdz [facility] PREOP NAUSEA; ABD. PAIN [id number] 10/28/2014 12:48:00 10/28/2014 18:45:00 DIS Emergency LEONORA CHAIREZ, SHAQUILLE Hahn [facility] ER VOMITING [id number] 06/13/2013 15:54:00 06/15/2013 10:37:00 DIS Inpatient ROMÁNNDER DONICOLENANCY S [facility] SURGICAL ACUTE CHOLECYSTITIS,ABD PAIN,INTRACTABLE NAUSEA,VO [id number] 06/11/2013 15:44:00 06/11/2013 20:43:00 DIS Emergency SAUL FRASER [facility] ER ABD PAIN [id number] 06/09/2013 08:49:00 06/09/2013 23:59:59 CLS Outpatient KARTHIK DANIEL [facility] RAD EPIGASTRIC PAIN [id number] 05/26/2013 13:42:00 05/26/2013 23:59:59 CLS Outpatient [id number] 03/22/2013 14:09:00 03/22/2013 23:59:59 CLS Outpatient [id number] 02/03/2013 08:59:00 02/03/2013 23:59:59 CLS Outpatient [id number] 04/05/2019 10:45:00 PEN Morenita LOPEZ MD, RANI [facility] LEFT KNEE MEDIAL MENISCUS TEAR [id number] 05/12/2018 07:49:00 Document Registration [id number] 10/22/2014 07:37:00 Document Registration [id number] 10/22/2014 07:37:00 Document Registration [id number] 10/02/2009 12:59:00 Document Registration
--- NOTE | 2019-04-05 08:54 | Progress Note-Pre Operative ---
Pre-Operative Progress Note H&P Reviewed The H&P was reviewed, patient examined and no changes noted. Date Seen by Provider: Apr 05, 2019 Time Seen by Provider: 08:54 Date H&P Reviewed: Apr 05, 2019 Time H&P Reviewed: 08:54 Pre-Operative Diagnosis: left knee medial meniscus tear and chondromalacia RANI LOPEZ MD Apr 05, 2019 08:54
--- NOTE | 2019-04-05 08:55 | Progress Note-Post Operative ---
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
[2019-04-05] MEDS ORDERED: HYDROcodone/APAP 7.5 MG/325 MG (LORTAB, LORCET PLUS) TABLET PO PRN (09:15)
[2019-04-05] MEDS ORDERED: LACTATED RINGERS 1,000 ML IV PRN (09:34)
[2019-04-05] MEDS ORDERED: ceFAZolin INJECTION 1,000 MG in WATER (STERILE) FOR INJECTION 10 ML IV ONE (09:45)
[2019-04-05] MEDS ORDERED: MIDAZOLAM 2 MG/2 ML (VERSED) VIAL ONE (09:52)
[2019-04-05] MEDS ORDERED: fentaNYL INJECTION 100 MCG/2 ML AMP ONE (09:52)
[2019-04-05] MEDS ORDERED: BUPIVACAINE 0.25% 30 ML (SENSORCAINE) VIAL ONE (10:20)
[2019-04-05] MEDS ORDERED: morphine PF (DURAMORPH) 10 MG/10 ML AMP ONE (10:20)
[2019-04-05] MEDS ORDERED: SEVOFLURANE (ULTANE) 15 ML INHAL SOLN ONE ×3 (10:47→11:16)
[2019-04-05] MEDS ORDERED: LACTATED RINGERS 1,000 ML IV ONE (10:47)
[2019-04-05] MEDS ORDERED: LIDOCAINE PF 2% 5 ML (XYLOCAINE) VIAL ONE (10:47)
[2019-04-05] MEDS ORDERED: ONDANSETRON 4 MG/2 ML (SDV) Z0FRAN ONE (10:47)
[2019-04-05] MEDS ORDERED: proPOfol 200 MG/20 ML (DIPRIVAN) VIAL IV ONE (10:47)
[2019-04-05] MEDS ORDERED: HYDROmorphone 2 MG/ML VIAL (DILAUDID) IV ONE (11:45)
[2019-04-05] MEDS ORDERED: ONDANSETRON 4 MG/2 ML (SDV) Z0FRAN IVP PRN (11:45)
[2019-04-05] MEDS ORDERED: morphine INJ 10 MG/ML 1ML (SYR OR VIAL) IVP ONE (11:45)
[2019-04-05] MEDS ORDERED: MEPERIDINE (DEMEROL) INJ 50 MG/ML IVP ONE (11:45)
[2019-04-05] MEDS ORDERED: HYDR-3816 PO (12:39)
--- NOTE | 2019-04-05 13:17 | Physical Therapy Ortho Eval ---
PT Orthopedic Evaluation Type of Surgery Knee Scope left side, WBAT Prior Level of Function Current Living Status: Children Locomotion (Upon Admit): Independent Subjective Subjective Patient in bed pre tx, agrees to PT, has 6/10 pain in left knee. Entry Into Home: Stairs With Railing Steps Into Home: 3 Motor Control Motor Control: Motor Control WNL ROM left knee flexion 70 degrees, extension +2 degrees Strength NT Transfer Transfers (B, C, W/C) (FIM): 4 Gait Gait Assistive Device: FWW Left Lower Extremity: Left Weight Bearing Status LLE: Weight Bearing/Tolerated Gait (FIM): 2 Distance: 50' Gait Level of Assist: 5 Summary/Comments Patient can ambulate 50' with a rolling walker with SBA, gait is slow and antalgic but steady. Patient also went up and down 1 step using a rolling walker with CGA and cues for step placement. Treatment Rendered Treatment: Therapeutic Exercises, Gait Train, Step Train Exercise Instruction: Quad Sets, Heel Slides, Ankle Pumps Assessment/Goals Goal Time Frame: 1 Visit Understands HEP: Yes Safe Ambulation: Yes Plan Treatment Plan: Discharge PT/Family Agrees to Plan: Yes Time Time In: 1253 Time Out: 1310 Total Billed Treatment Time: 17 Billed Treatment Time 1 visit VINNIE Robledo' JJ HERNANDEZ PT Apr 05, 2019 13:17
--- NOTE | 2019-04-05 13:32 | Anesthesia-General Post-Op ---
General Patient Condition Mental Status/LOC: Same as Preop Cardiovascular: Satisfactory Nausea/Vomiting: Absent Respiratory: Satisfactory Pain: Controlled Complications: Absent Post Op Complications Complications None Follow Up Care/Instructions Patient Instructions None needed. Anesthesia/Patient Condition Patient Condition Patient is doing well, no complaints, stable vital signs, no apparent adverse anesthesia problems. No complications reported per nursing. RACHELLE VILLALPANDO CRNA Apr 05, 2019 13:32
--- NOTE | 2019-04-05 16:44 | OPERATIVE REPORT ---
DATE OF SERVICE: 04/05/2019 PREOPERATIVE DIAGNOSES: 1. Left knee medial meniscus tear. 2. Left knee chondromalacia of the medial femoral condyle. 3. Left knee chondromalacia patella. POSTOPERATIVE DIAGNOSES: 1. Left knee medial meniscus tear. 2. Left knee chondromalacia of the medial femoral condyle. 3. Left knee chondromalacia patella. 4. Left knee chondromalacia lateral tibial plateau. 5. Left knee chondromalacia of the trochlea. PROCEDURES: 1. Left knee arthroscopic partial medial meniscectomy. 2. Left knee arthroscopic chondroplasty of the medial femoral condyle. 3. Left knee arthroscopic chondroplasty of the patella. 4. Left knee arthroscopic chondroplasty of the lateral tibial plateau. 5. Left knee arthroscopic chondroplasty of the trochlea. SURGEON: Chito Zhu MD MANAGER OF DEVELOPMENT: MYLENE Jean-Baptiste, who assisted throughout the procedure and closed the incisions. ANESTHESIA: General endotracheal by Blue Mcfarland CRNA. ESTIMATED BLOOD LOSS: Minimal. DRAINS: None. COMPLICATIONS: None. POSTOPERATIVE PLAN: Routine arthroscopy protocol. The patient was transferred to the recovery room awake and stable condition. STATEMENT OF MEDICAL NECESSITY: The patient is a 48-year-old female with complaints of left medial knee pain, catching, locking and swelling. She was tender along the medial joint line. She had pain medially with Essie. She also has patellofemoral crepitus and pain with patellar loading. Radiographs revealed medial and patellofemoral joint space narrowing due to functional impairment and failure to improve with conservative measures, the patient elected to proceed with surgical intervention. Examination under anesthesia revealed range of motion of 0/0/125 with negative Niurka, negative anterior and posterior drawer. No varus valgus laxity and negative pivot shift. ARTHROSCOPIC FINDINGS: The patella demonstrated grade II chondral flap centrally in a 10 x 10 area. The trochlea demonstrated grade III chondral flaps in a 10 x 15 area. The medial and lateral gutters were clear. Lateral compartment had grade II chondral flap in the posterior aspect of the tibial plateau in an 8 x 10 area. No meniscal pathology was noted. Laterally, the ACL and PCL were intact. The medial compartment demonstrated a complex tear of the posterior horn and body of the meniscus involving approximately 1/2 of the posterior horn and body. The medial femoral condyle demonstrated grade III chondral flap centrally in 12 x 12 area. PROCEDURE: After risks and benefits of procedure were discussed and questions were answered, an informed consent was signed and placed in the chart. The operative site was confirmed in the preoperative holding area initialed by the surgeon. The patient was then transported to the operating room and after adequate levels of general endotracheal anesthetic were obtained, a timeout was called confirming the operative site. Examination under anesthesia was performed with the above findings noted. Left lower extremity was prepped and draped in the usual sterile fashion. The knee joint was injected with 60 mL of fluid. A standard inferolateral portal was placed with the arthroscope under direct visualization, inferior medial portal was created. The menisci and cruciates were carefully probed with the above findings noted. The unstable chondral flaps on the patella and trochlea were debrided with the shaver back to a stable edge. The scope was then redirected into the lateral compartment where the unstable chondral flaps and lateral tibial plateau were debrided with a shaver back to a stable edge. The scope was then redirected into the medial compartment. The unstable chondral flaps of the medial femoral condyle were debrided with a shaver back to a stable edge and the medial meniscus tear was debrided with a biter and shaver removing approximately 1/2 posterior horn and body. This was carefully probed with no further tearing or instability noted. The knee was copiously irrigated. Portal sites were closed with 4-0 nylon in simple interrupted fashion. Knee was injected with Duramorph. Portal sites were infiltrated with plain Marcaine. A soft dressing was applied and the patient was transferred to the recovery room awake and in stable condition. 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
== END 2019-04-05 13:25 | disposition home or self-care (01) ==
LOC: SDC 08:31
PROVIDERS: ATTEND Orthopaedic Surgery
DX: M23.322 Other meniscus derangements, posterior horn of medial meniscus, left knee (principal); M22.42 Chondromalacia patellae, left knee; I10 Essential (primary) hypertension; E11.9 Type 2 diabetes mellitus without complications; J45.909 Unspecified asthma, uncomplicated; K21.9 Gastro-esophageal reflux disease without esophagitis; K44.9 Diaphragmatic hernia without obstruction or gangrene; Z79.84 Long term (current) use of oral hypoglycemic drugs; Z79.899 Other long term (current) drug therapy
CPT/HCPCS: 82962; 87081

== ENCOUNTER 2019-08-02 10:56 | Outpatient (CLI) | payer BC ==
[~2019-08-02] VITALS: Ht 167 cm; Wt 134.0 kg
[~2019-08-02 10:56] MED LIST changes: +HYDR-3816 PO
== END 2019-08-02 11:10 | disposition home or self-care (01) ==
LOC: PREOP 10:56
PROVIDERS: ATTEND Orthopaedic Surgery
DX: Z01.818 Encounter for other preprocedural examination (principal)

== ENCOUNTER 2019-08-09 09:46 | Day surgery (SDC) | payer BC ==
--- NOTE | 2019-07-31 06:47 | HISTORY AND PHYSICAL ---
DATE OF SERVICE: 08/09/2019 ADMISSION HISTORY AND PHYSICAL DATE OF SURGERY: 08/09/2019. DATE OF ADMISSION: 08/09/2019. This will be for outpatient surgery for right knee arthroscopy on 08/09/2019. HISTORY OF PRESENT ILLNESS: The patient is a 49-year-old female with complaints of right knee pain. She reports right knee pain over the last two months. She reports it has been progressive in nature with catching, locking and swelling. 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 She does not desire total knee arthroplasty. She understands an arthroscopy can help with her mechanical symptoms, will not alleviate her arthritic symptoms. REVIEW OF SYSTEMS: No chest pain, no shortness of breath, no dysuria. PAST MEDICAL HISTORY: Hyperlipidemia. PAST SURGICAL HISTORY: Right ankle, both feet, left wrist, tonsillectomy, appendectomy, cholecystectomy, left knee arthroscopy. SOCIAL HISTORY: The patient is . She works at [employer]. FAMILY HISTORY: Significant for breast cancer and lung cancer. PRIMARY CARE PROVIDER: Dr. Teixeira. ALLERGIES: NAPROSYN AND IBUPROFEN. RADIOGRAPHS: Reveal moderate medial and patellofemoral joint space narrowing. PHYSICAL EXAMINATION: GENERAL: The patient is well-developed, well-nourished, in no acute distress. HEENT: Normocephalic, atraumatic. Pupils are equal, round, reactive to light. Oropharynx is clear. NECK: Supple, no lymphadenopathy. LUNGS: Clear to auscultation bilaterally. HEART: Regular rate and rhythm. ABDOMEN: Soft, nontender, nondistended. EXTREMITIES: Right knee demonstrates moderate effusion. She has patellofemoral crepitus and pain with patellar loading. She is markedly tender along the medial joint line. She has pain medially with Essie's. There is no varus or valgus laxity. Negative anterior and posterior drawer. Range of motion 0/2/135. She ambulates with an antalgic gait on the right. IMPRESSION: Right knee medial meniscus tear with associated chondromalacia. PLAN: Right knee arthroscopy with partial medial meniscectomy and chondroplasty. Risks, benefits, options, ramifications and recovery have been discussed at length with the patient. She understands and wishes to proceed. Job ID: [id number] DocumentID: [id number] Dictated Date: 07/27/2019 11:42:51 Stunt Woman Date: 07/27/2019 14:39:46 Dictated By: RANI LOPEZ MD
[2019-08-09] VITALS (12 sets, daily range): BP systolic 90–141; BP diastolic 62–86
[~2019-08-09] VITALS: Ht 167 cm; Wt 134.0 kg
[2019-08-09] MEDS ORDERED: LACTATED RINGERS 1,000 ML IV PRN (09:52)
[2019-08-09] MEDS ORDERED: ceFAZolin INJECTION 1,000 MG in WATER (STERILE) FOR INJECTION 10 ML IV ONE (10:00)
[2019-08-09] MEDS ORDERED: FAMOTIDINE 20MG/2ML IV (PEPCID) IV ONE (11:00)
--- NOTE | 2019-08-09 11:05 | Progress Note-Pre Operative ---
Pre-Operative Progress Note H&P Reviewed The H&P was reviewed, patient examined and no changes noted. Date Seen by Provider: Aug 09, 2019 Time Seen by Provider: 11:05 Date H&P Reviewed: Aug 09, 2019 Time H&P Reviewed: 11:05 Pre-Operative Diagnosis: right knee medial meniscus tear and chondromalacia RANI LOPEZ MD Aug 09, 2019 11:05 POS
--- NOTE | 2019-08-09 11:07 | Progress Note-Post Operative ---
Post-Operative Progess Note Surgeon (s)/Buckle Inspector (s) Surgeon RANI LOPEZ MD Buckle Inspector: Redd Harris Pre-Operative Diagnosis right knee medial meniscus tear and chondromalacia Post-Operative Diagnosis right knee medial meniscus tear and chondromalacia of the medial femoral condyle and patella Procedure & Operative Findings Date of Procedure 08/09/19 Procedure Performed/Findings right knee arthroscopic partial medial meniscectomy and chondroplasty of the medial femoral condyle and patella Anesthesia Type GETA Estimated Blood Loss Estimated blood loss (mL): minimal Specimens/Packing Specimens Removed none Packing: none RANI LOPEZ MD Aug 09, 2019 11:06 POS
[2019-08-09] MEDS ORDERED: fentaNYL INJECTION 100 MCG/2 ML AMP ONE (11:40)
[2019-08-09] MEDS ORDERED: SEVOFLURANE (ULTANE) 15 ML INHAL SOLN ONE ×3 (11:40→12:45)
[2019-08-09] MEDS ORDERED: MIDAZOLAM 2 MG/2 ML (VERSED) VIAL ONE (11:40)
[2019-08-09] MEDS ORDERED: LIDOCAINE PF 2% 5 ML (XYLOCAINE) VIAL ONE (11:40)
[2019-08-09] MEDS ORDERED: ONDANSETRON 4 MG/2 ML (SDV) Z0FRAN ONE (11:40)
[2019-08-09] MEDS ORDERED: proPOfol 200 MG/20 ML (DIPRIVAN) VIAL IV ONE (11:40)
[2019-08-09] MEDS ORDERED: BUPIVACAINE 0.25% 30 ML (SENSORCAINE) VIAL ONE (11:53)
[2019-08-09] MEDS ORDERED: morphine PF (DURAMORPH) 10 MG/10 ML AMP ONE (11:53)
[2019-08-09] MEDS ORDERED: HYDROcodone/APAP 7.5 MG/325 MG (LORTAB, LORCET PLUS) TABLET PO PRN (12:30)
[2019-08-09] MEDS ORDERED: ONDANSETRON 4 MG/2 ML (SDV) Z0FRAN IVP PRN (13:00)
[2019-08-09] MEDS ORDERED: morphine INJ 10 MG/ML 1ML (SYR OR VIAL) IVP ONE (13:00)
--- NOTE | 2019-08-09 14:16 | Physical Therapy Progress Note ---
Therapy Progress Note PT visit only. Pt recently had left knee scoped and voiced understanding of gait and transfers; reported she did not feel she needed skilled Eval at this time. Reviewed HEP of QS, HS and SLR. Pt verbalized understanding and was given pictures. No treatment rendered. ELVIRA ARAGON PT Aug 09, 2019 14:16 POS
--- NOTE | 2019-08-09 14:31 | Anesthesia-General Post-Op ---
General Patient Condition Mental Status/LOC: Same as Preop Cardiovascular: Satisfactory Nausea/Vomiting: Absent Respiratory: Satisfactory Pain: Controlled Complications: Absent Post Op Complications Complications None Follow Up Care/Instructions Patient Instructions None needed. Anesthesia/Patient Condition Patient Condition Patient is doing well, no complaints, stable vital signs, no apparent adverse anesthesia problems. DESI RIVAS CRNA Aug 09, 2019 14:31 POS
--- NOTE | 2019-08-09 17:31 | OPERATIVE REPORT ---
DATE OF SERVICE: 08/09/2019 PREOPERATIVE DIAGNOSES: 1. Right knee medial meniscus tear. 2. Right knee chondromalacia of the medial femoral condyle. 3. Right knee chondromalacia of patella. POSTOPERATIVE DIAGNOSES: 1. Right knee medial meniscus tear. 2. Right knee chondromalacia of the medial femoral condyle. 3. Right knee chondromalacia of patella. PROCEDURES: 1. Right knee arthroscopic partial medial meniscectomy. 2. Right knee arthroscopic chondroplasty of the medial femoral condyle. 3. Right knee arthroscopic chondroplasty of the patella. SURGEON: Chito Lopez MD IRISH MOSS GATHERER: ZOHREH Jean-Baptiste, who assisted throughout the procedure and closed the incisions. ANESTHESIA: General endotracheal by Miguelina Gamez CRNA. TOURNIQUET TIME: Not applicable. ESTIMATED BLOOD LOSS: Minimal. DRAINS: None. COMPLICATIONS: None. POSTOPERATIVE PLAN: Routine arthroscopy protocol. The patient transferred to recovery room awake and stable condition. STATEMENT OF MEDICAL NECESSITY: The patient is a 49-year-old female with complaints of right knee pain, catching, swelling and locking. Radiographs revealed medial and patellofemoral joint space narrowing. She is also tender along the medial joint line. She had pain medially with Essie's. The patient was counseled that she did have significant degenerative changes of the knee arthroscopy could help with her mechanical symptoms, but would not help with her arthritic symptoms. The patient understood this and elected to proceed with surgical intervention. DESCRIPTION OF PROCEDURE: After risks and benefits of procedure were discussed and questions were answered, informed consent was signed and placed on chart. The operative site was confirmed in the preoperative holding area initialed by the surgeon. The patient was transferred to the operating room. After adequate levels of general endotracheal anesthetic were obtained, a timeout was called, confirming the operative site. Right lower extremity was prepped and draped in the usual sterile fashion after performing examination under anesthesia. Examination under anesthesia revealed range of motion of 0/0/125 with negative Niurka, negative anterior and posterior drawer. No varus valgus laxity, negative pivot shift. The knee joint was injected with 60 mL of fluid and standard inferolateral portal was placed with the arthroscope. Under direct visualization, inferior medial portal was created and diagnostic arthroscopy was carried out, which revealed a grade IV chondral loss throughout the central portion of the patella and a with inferior grade III chondral flaps. Trochlea demonstrated diffuse grade IV chondral loss in the medial and lateral gutters were clear. Lateral compartment demonstrated no significant meniscal or chondral pathology. The ACL and PCL were intact. Medial compartment demonstrated a tear of the body and posterior horn of the medial meniscus involving approximately one-third of the posterior horn and body. In addition, there was grade IV chondral loss throughout the medial compartment both the femoral and tibial sides with unstable chondral flaps. At the periphery, the grade IV chondral lesion on the femoral condyle, which measured approximately 30 x 40 mm in size. The unstable chondral flaps in the medial femoral condyle were debrided with shaver back to a stable edge and the medial meniscus tear was debrided with shaver back to a stable edge. This was carefully probed with no further tearing or instability noted. The scope was redirected into the patellofemoral compartment joint space. We then several chondral flaps of the patella were debrided with shaver back to a stable edge. Knee was copiously irrigated. Portal sites were closed with 4-0 nylon in simple interrupted fashion. Knee was injected with Duramorph. Port sites were infiltrated with plain Marcaine. A soft dressing was applied. The patient was transferred to the recovery room awake and in stable condition. Job ID: [id number] DocumentID: [id number] Dictated Date: 08/09/2019 13:01:55 Family Services Assistant Date: 08/09/2019 17:30:21 Dictated By: CHITO LOPEZ MD
== END 2019-08-09 15:20 | disposition home or self-care (01) ==
LOC: SDC 09:46
PROVIDERS: ATTEND Orthopaedic Surgery
DX: S83.241A Other tear of medial meniscus, current injury, right knee, initial encounter (principal); M94.261 Chondromalacia, right knee; E78.5 Hyperlipidemia, unspecified; Z90.49 Acquired absence of other specified parts of digestive tract; Z80.3 Family history of malignant neoplasm of breast; Z80.1 Family history of malignant neoplasm of trachea, bronchus and lung; Z88.3 Allergy status to other anti-infective agents
CPT/HCPCS: 82962; 87081

== ENCOUNTER 2020-05-02 14:59 | Emergency (ER) | payer BC ==
[~2020-05-02] VITALS: Ht 167.7 cm; Wt 136.1 kg
[~2020-05-02 14:59] MED LIST changes: +HYDR-34 PO; -HYDR-3812 PO; -HYDR-3816 PO; -MONT10TA24 PO; +MONT10TA26 PO
[2020-05-02] MEDS ORDERED: NITROGLYCERIN 0.4 MG SL TABS BTL 25'S SL ONE (15:06)
[2020-05-02] MEDS ORDERED: ASPIRIN 81 MG CHEW (CHILDREN'S ASA) ONE (15:06)
--- NOTE | 2020-05-02 15:10 | NUR ---
@ 1510 Nitro #1 adm. with initial BP 124/53 pain 12/11 @ 1515 BP 86/66 pain 12/11 Provider notified of drop in blood pressure.
[2020-05-02] MEDS ORDERED: RT-ALBUTEROL/IPRATROPIUM 3 ML (DUONEB) VIAL ONE (15:11)
--- NOTE | 2020-05-02 15:11 | ED Chest Pain ---
General Stated Complaint: CHEST PAIN/SOA Source: patient Exam Limitations: no limitations History of Present Illness Date Seen by Provider: May 02, 2020 Time Seen by Provider: 15:09 Initial Comments To ER by private vehicle with reports of central chest pain that radiated to the left upper abdomen in the right jaw associated with some mild shortness of radha ath. This is described as a pressure rated 3 out of 10. 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. No history of this. She does have a history of asthma and anxiety but states that this feels different than either of those. She does have hypertension and obesity, nonsmoker, states that she has been told she is prediabetic and her fat her did have NH. No fever, no chills, no cough, no known exposure to COVID19 patients. Timing/Duration: changing over time Severity/Quality: moderate Location: central Radiation: no radiation Activities at Onset: none Associated Symptoms: No nausea/vomiting; shortness of breath Allergies and Home Medications Allergies Coded Allergies: ibuprofen (Verified Allergy, Mild, GI UPSET, 08/02/19) Home Medications Albuterol Sulfate 1 Puff Puff, 2 PUFF IH Q4H PRN for SHORTNESS OF BREATH, (Reported) 1 PUFF = 90 MCG Buspirone HCl 15 Mg Tablet, 15 MG PO BID, (Reported) Escitalopram Oxalate 20 Mg Tablet, 20 MG PO DAILY, (Reported) Esomeprazole Magnesium 40 Mg Cap, 40 MG PO DAILY, (Reported) Lifitegrast 1 Each Droperette, 1 EACH OP BID, (Reported) Metformin HCl 500 Mg Tablet, 500 MG PO DAILY, (Reported) Montelukast Sodium 10 Mg Tablet, 10 MG PO DAILY, (Reported) Propranolol HCl 40 Mg Tablet, 40 MG PO BID, (Reported) Trazodone HCl 300 Mg Tablet, 300 MG PO HS, (Reported) Patient Home Medication List Home Medication List Reviewed: Yes Review of Systems Review of Systems Constitutional: see HPI EENTM: No Symptoms Reported Respiratory: See HPI, Shortness of Air Cardiovascular: See HPI, Chest Pain Genitourinary: No Symptoms Reported Musculoskeletal: no symptoms reported Skin: no symptoms reported Psychiatric/Neurological: No Symptoms Reported Hematologic/Lymphatic: No Symptoms Reported Past Vvcvfjs-Dtbwol-Sdzhzr Hx Patient Social History 2nd Hand Smoke Exposure: No Recent Hopitalizations: No Immunizations Up To Date Tetanus Booster (TDap): Unknown Seasonal Allergies Seasonal Allergies: Yes Past Medical History Surgeries: Yes (wrist,knees,ankle, ) Abdominal, Adenoidectomy, Appendectomy, Gallbladder, Hysterectomy, Orthopedic, Tonsillectomy Respiratory: Yes (COUGH AND SOB, POSS ASTHMA) Cardiac: Yes High Cholesterol, Hypertension Neurological: No 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 Sexually Transmitted Disease: No HIV/AIDS: No Genitourinary: No UTI-Chronic Gastrointestinal: Yes (History of gastritis and esophagitis) Gastroesophageal Reflux, Diverticulosis, Hiatal Hernia Musculoskeletal: Yes Arthritis, Chronic Back Pain Endocrine: Yes (PRE-DIABETIC) Diabetes, Non-Insulin dep HEENT: Yes (GLASSES) Loss of Vision: Denies Hearing Impairment: Denies Cancer: No Psychosocial: Yes Anxiety, Depression Integumentary: No Blood Disorders: No Adverse Reaction/Blood Tranf: No (N/A) Family Medical History Asthma 19 MOTHER (BREAST CANCER) No Pertinent Family Hx Physical Exam Vital Signs Vital Signs - First Documented Capillary Refill : Height, Weight, BMI Height: 5'6.00" Weight: 300lbs. 0.0oz. 136.801116xp; 48.04 BMI Method:Stated General Appearance: No Apparent Distress, WD/WN, Anxious, Obese HEENT: PERRL/EOMI, Normal ENT Inspection Neck: Full Range of Motion, Normal Inspection Respiratory: Normal Breath Sounds, No Accessory Muscle Use, No Respiratory Distress Cardiovascular: Regular Rate, Rhythm, Normal Peripheral Pulses Gastrointestinal: Normal Bowel Sounds, Non Tender, Soft Extremity: Normal Capillary Refill, Normal Inspection Neurologic/Psychiatric: Alert, Oriented x3 Skin: Normal Color, Warm/Dry Progress/Results/Core Measures Results/Orders Lab Results Laboratory Tests Test 05/02/20 15:10 05/02/20 17:04 Range/Units White Blood Count 8.7 4.3-11.0 10^3/uL Red Blood Count 5.19 4.35-5.85 10^6/uL Hemoglobin 14.3 11.5-16.0 G/DL Hematocrit 43 35-52 % Mean Corpuscular Volume 83 80-99 FL Mean Corpuscular Hemoglobin 28 25-34 PG Mean Corpuscular Hemoglobin Concent 33 32-36 G/DL Red Cell Distribution Width 14.2 10.0-14.5 % Platelet Count 303 130-400 10^3/uL Mean Platelet Volume 10.7 H 7.4-10.4 FL Neutrophils (%) (Auto) 60 42-75 % Lymphocytes (%) (Auto) 31 12-44 % Monocytes (%) (Auto) 8 0-12 % Eosinophils (%) (Auto) 1 0-10 % Basophils (%) (Auto) 1 0-10 % Neutrophils # (Auto) 5.2 1.8-7.8 X 10^3 Lymphocytes # (Auto) 2.7 1.0-4.0 X 10^3 Monocytes # (Auto) 0.7 0.0-1.0 X 10^3 Eosinophils # (Auto) 0.1 0.0-0.3 10^3/uL Basophils # (Auto) 0.1 0.0-0.1 10^3/uL Prothrombin Time 12.8 12.2-14.7 SEC INR Comment 0.9 0.8-1.4 Activated Partial Thromboplast Time 31 24-35 SEC D-Dimer 0.34 0.00-0.49 UG/ML Sodium Level 140 135-145 MMOL/L Potassium Level 4.0 3.6-5.0 MMOL/L Chloride Level 103 98-107 MMOL/L Carbon Dioxide Level 24 21-32 MMOL/L Anion Gap 13 5-14 MMOL/L Blood Urea Nitrogen 15 7-18 MG/DL Creatinine 0.75 0.60-1.30 MG/DL Estimat Glomerular Filtration Rate > 60 BUN/Creatinine Ratio 20 Glucose Level 108 H 70-105 MG/DL Calcium Level 9.5 8.5-10.1 MG/DL Corrected Calcium 9.1 8.5-10.1 MG/DL Magnesium Level 1.9 1.6-2.4 MG/DL Total Bilirubin 0.5 0.1-1.0 MG/DL Aspartate Amino Transf (AST/SGOT) 23 5-34 U/L Alanine Aminotransferase (ALT/SGPT) 46 0-55 U/L Alkaline Phosphatase 85 40-136 U/L Myoglobin 37.0 10.0-92.0 NG/ML Troponin I < 0.028 < 0.028 <0.028 NG/ML B-Type Natriuretic Peptide < 10.0 <100.0 PG/ML Total Protein 7.0 6.4-8.2 GM/DL Albumin 4.5 3.2-4.5 GM/DL Lipase 17 8-78 U/L My Orders Orders - KATE UMANZOR CHIEF TECHNOLOGY OFFICER Cbc With Automated Diff (05/02/20 15:07) Magnesium (05/02/20 15:07) Chest 1 View, Ap/Pa Only (05/02/20 15:07) Ekg Tracing (05/02/20 15:07) Comprehensive Metabolic Panel (05/02/20 15:07) Myoglobin Serum (05/02/20 15:07) Protime With Inr (05/02/20 15:07) Partial Thromboplastin Time (05/02/20 15:07) O2 (05/02/20 15:07) Monitor-Rhythm Ecg Trace Only (05/02/20 15:07) Lipid Panel (05/03/20 06:00) Ed Iv/Invasive Line Start (05/02/20 15:07) Lipase (05/02/20 15:07) BNP (05/02/20 15:07) Fibrin Degradation Products (05/02/20 15:07) Troponin I (05/02/20 15:07) Aspirin Chewable Tablet (Baby Aspirin Ch (05/02/20 15:15) Albuterol/Ipra Inhalation Soln (Duoneb I (05/02/20 15:15) Svn Small Volume Nebulizer (05/02/20 15:12) Albuterol/Ipra Inhalation Soln (Duoneb I (05/02/20 15:11) Ns Iv 1000 Ml (Sodium Chloride 0.9%) (05/02/20 15:30) Nitroglycerin 0.4 Mg Btl 25's (Nitrostat (05/02/20 15:30) Morphine Injection (Morphine Injection (05/02/20 15:37) Troponin I (05/02/20 17:10) Medications Given in ED Current Medications Medications Dose Ordered Sig/[place] Route Start Time Stop Time Status Last Admin Dose Admin Albuterol/ Ipratropium 3 ml ONCE ONCE INH 05/02/20 15:15 05/02/20 15:16 DC 05/02/20 15:15 3 ML Aspirin 324 mg ONCE ONCE PO 05/02/20 15:15 05/02/20 15:16 DC 05/02/20 15:09 324 MG Nitroglycerin 1 TAB Q 5 MIN X 3 NEEDED PRN SL 05/02/20 15:30 05/02/20 15:10 0.4 MG Vital Signs/I&O 05/02/20 05/02/20 15:04 15:04 Temp 36.5 Pulse 84 Resp 22 B/P (MAP) 124/53 (76) Pulse Ox 96 O2 Delivery Room Air Room Air Departure Communication (Admissions) 1554-nitroglycerin dropped her pressure down to 70s systolic but quickly came back up to normal range. Did not affect the chest pain. She was offered morphine for chest pain but declined. States she just feels "off" not so much with any chest pain currently. I'll do a repeat troponin. Time, time of reevaluation has a flat depressed affect. 1734-Still no CP/soa/N/V. Will dc to home. Impression Primary Impression: Atypical chest pain Disposition: HOME, SELF-CARE Condition: Stable Admissions Decision to Admit Reason: Admit from ER (General) Decision to Admit/Date: May 02, 2020 Time/Decision to Admit Time: 15:54 Departure-Patient Inst. Decision time for Depature: 17:35 Referrals: NIKO RUSSO MD (PCP/Family) Primary Care Physician Patient Instructions: Chest Pain (DC) Add. Discharge Instructions: 1. Return to ER for any recurrent pain or other concerns and call Dr. Russo tomorrow to make an appointment to be seen to discuss referral to cardiology for further workup. Work/School Note: Work Release Form Date Seen in the Emergency Department: May 02, 2020 Return to Work: May 03, 2020 Copy Copies To 1: NIKO RUSSO MD, PETER J APRN May 02, 2020 15:11
[2020-05-02] MEDS ORDERED: ASPIRIN 81 MG CHEW (CHILDREN'S ASA) PO ONE (15:15)
[2020-05-02] MEDS ORDERED: RT-ALBUTEROL/IPRATROPIUM 3 ML (DUONEB) VIAL INH ONE (15:15)
[2020-05-02 15:17] LABS: BASOPHILS # (AUTO) 0.1 10^3/uL (0.0-0.1); BASOPHILS % (AUTO) 1 % (0-10); EOSINOPHILS # (AUTO) 0.1 10^3/uL (0.0-0.3); EOSINOPHILS % (AUTO) 1 % (0-10); HEMATOCRIT 43 % (35-52); HEMOGLOBIN 14.3 G/DL (11.5-16.0); LYMPHOCYTES # (AUTO) 2.7 X 10^3 (1.0-4.0); LYMPHOCYTES % (AUTO) 31 % (12-44); MEAN CORPUSCULAR HEMOGLOBIN 28 PG (25-34); MEAN CORPUSCULAR HGB CONC 33 G/DL (32-36); MEAN CORPUSCULAR VOLUME 83 FL (80-99); MEAN PLATELET VOLUME 10.7 FL (7.4-10.4); MONOCYTES # (AUTO) 0.7 X 10^3 (0.0-1.0); MONOCYTES % (AUTO) 8 % (0-12); NEUTROPHILS # (AUTO) 5.2 X 10^3 (1.8-7.8); NEUTROPHILS % (AUTO) 60 % (42-75); PLATELET COUNT 303 10^3/uL (130-400); RED CELL DISTRIBUTION WIDTH 14.2 % (10.0-14.5); WHITE BLOOD COUNT 8.7 10^3/uL (4.3-11.0)
[2020-05-02 15:29] LABS: ALBUMIN 4.5 GM/DL (3.2-4.5); CHLORIDE 103 MMOL/L (98-107); SODIUM 140 MMOL/L (135-145)
[2020-05-02 15:30] LABS: CALCIUM 9.5 MG/DL (8.5-10.1)
[2020-05-02] MEDS ORDERED: NITROGLYCERIN 0.4 MG SL TABS BTL 25'S SL PRN (15:30)
[2020-05-02] MEDS ORDERED: NS IV 1000 ML 1,000 ML IV SCH (15:30)
[2020-05-02 15:31] LABS: GLUCOSE 108 MG/DL (70-105)
[2020-05-02 15:32] LABS: CARBON DIOXIDE 24 MMOL/L (21-32)
[2020-05-02 15:33] LABS: BILIRUBIN,TOTAL 0.5 MG/DL (0.1-1.0)
[2020-05-02 15:34] LABS: ALKALINE PHOSPHATASE 85 U/L (40-136)
--- NOTE | 2020-05-02 15:34 | Diagnostic Imaging Report ---
PATIENT HISTORY: Chest pain. TECHNIQUE: Single frontal view of the chest. COMPARISON: 11/02/2017 FINDINGS: The lung volumes are normal. No focal consolidation is seen. No large pleural effusion or pneumothorax is seen. The cardiomediastinal silhouette is normal in size and contour. No acute osseous abnormality is seen. There is chronic deformity of the distal left clavicle which may be from degenerative change or remote trauma. IMPRESSION: No acute pulmonary abnormality seen. Dictated by: Dictated on workstation # [id number]
[2020-05-02 15:35] LABS: CREATININE SERUM 0.75 MG/DL (0.60-1.30); GFR ESTIMATED > 60
[2020-05-02 15:36] LABS: BUN/CREATININE RATIO 20
[2020-05-02] MEDS ORDERED: morphine INJ 10 MG/ML 1ML (SYR OR VIAL) IVP STA (15:37)
[2020-05-02 15:38] LABS: ALANINE AMINOTRANSFERASE 46 U/L (0-55); MAGNESIUM 1.9 MG/DL (1.6-2.4)
--- NOTE | 2020-05-02 15:38 | NUR ---
Pt refuses morphine reporting "I don't think I need that." Total of 10mg morphine wasted et witnessed by CLAUS Mann.
[2020-05-02 15:39] LABS: LIPASE 17 U/L (8-78)
[2020-05-02 15:55] LABS: INR 0.9 (0.8-1.4); PROTHROMBIN TIME PATIENT 12.8 SEC (12.2-14.7)
[2020-05-02 17:53] VITALS: BP 111/70
--- OUTSIDE RECORDS SUMMARY | 2020-05-02 17:56 | XMS REPORT | Summary of Care ---
Author Author [facility] Address Unknown Phone Unavailable Care Team Providers Care Bell Valet Name Role Phone NANCY DELGADO DO PCP Encounter [facility] [id number] Date(s): 06/23/18 - 06/23/18 [facility] [address] [place] [address] [place] [phone] Encounter Diagnosis Mass of right ovary (Discharge Diagnosis) - 06/23/18 Family history of breast cancer (Discharge Diagnosis) - 06/23/18 Noninflammatory disorder of ovary, fallopian tube and broad ligament, unspecifie d (Final) - Discharge Disposition: Home - 01 Attending Physician: UNA VALENZUELA MD Admitting Physician: UNA VALENZUELA MD Referring Physician: UNA VALENZUELA MD Vital Signs Most recent to 1 oldest [Reference Range]: Temperature 99.0 DegF [96.8-99.7 DegF] (06/23/18 2:14 PM) Heart Rate 72 bpm (06/23/18 2:14 PM) Mean Arterial 99 mmHg Pressure (06/23/18 2:14 PM) Blood Pressure 132/83 mmHg [90-180/50-90 mmHg] (06/23/18 2:14 PM) Problem List Condition Effective Dates Status Health Status Informan t Morbid obesity with Active body mass index (BMI) of 45.0 to 49.9 in adult(Confirmed) Depression(Confirmed Active ) Endometriosis(Confir Active med) Family history of Active breast cancer(Confirmed) Hypertension(Confirm Active ed) Mass of left Active ovary(Confirmed) Mass of right Active ovary(Confirmed) 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) Allergies, Adverse Reactions, Alerts Substance Reaction Severity Status ibuprofen Active naproxen Active Medications busPIRone 15 mg oral tablet = 1 TAB, PO, BID (2 times a day), 0 Refill(s), TAKE DOS, Indication: Anxiety Start Date: 06/23/18 Status: Ordered cetirizine 10 mg oral capsule 1 CAP, PO, Daily, 0 Refill(s), HOLD DOS, Indication: Allergy Symptoms Start Date: 06/23/18 Status: Ordered escitalopram 20 mg oral tablet 1 TAB, PO, Daily, 0 Refill(s), TAKE DOS, Indication: Anxiety Start Date: 06/23/18 Status: Ordered fluticasone 27.5 mcg/inh nasal spray 1 [place], Nasal, Daily, PRN for allergy symptoms, 0 Refill(s), USE DOS, Indicatio n: Allergy Symptoms Start Date: 06/23/18 Status: Ordered meloxicam 15 mg oral tablet 1 TAB, PO, Daily, # 30 TAB, 0 Refill(s), STOP 7 DAYS PRE-OP, Indication: Inflamm ation Start Date: 06/23/18 Status: Ordered metFORMIN 500 mg oral tablet 1 TAB, PO, QAM (Every morning), 0 Refill(s), DO NOT TAKE DOS, Indication: Blood Glucose Start Date: 06/23/18 Status: Ordered montelukast 10 mg oral tablet 1 TAB, PO, Daily, 0 Refill(s), TAKE DOS, Indication: Allergy Symptoms Start Date: 06/23/18 Status: Ordered propranolol 40 mg oral tablet 1 TAB, PO, BID (2 times a day), 0 Refill(s), TAKE DOS, Indication: High Blood Pr essure Start Date: 06/23/18 Status: Ordered Protonix 40 mg oral delayed release tablet 1 TAB, PO, BID (2 times a day), # 60 TAB, 0 Refill(s), TAKE DOS, Indication: Ref lux Start Date: 06/23/18 Status: Ordered Symbicort 160 mcg-4.5 mcg/inh 2 Puff, Inhalation, BID (2 times a day), # 6 GM, 0 Refill(s), USE DOS Start Date: 06/23/18 Status: Ordered Results No data available for this section Immunizations No data available for this section Procedures Procedure Date Related Diagnosis Body Site Status appendectomy Completed cholecystectomy Completed tonsillectomy Completed Social History Social History Type Response Functional Status No data available for this section Assessment and Plan No data available for this section Hospital Discharge Instructions No data available for this section
--- OUTSIDE RECORDS SUMMARY | 2020-05-02 17:56 | XMS REPORT | Summary of Care ---
Author Author [facility] Address Unknown Phone Unavailable Care Team Providers Care Field Support Rep Name Role Phone NANCY DELGADO DO PCP Encounter [facility] [id number] Date(s): 07/18/18 - 07/20/18 [facility] [address] [place] [phone] Encounter Diagnosis Mass of right ovary (Discharge Diagnosis) - 07/18/18 Mass of left ovary (Discharge Diagnosis) - 07/18/18 Post-op pain (Discharge Diagnosis) - 07/18/18 Morbid obesity with body mass index (BMI) of 45.0 to 49.9 in adult (Discharge Diagnosis) - 07/19/18 Unspecified ovarian cyst, right side (Final) - Body mass index (BMI) 45.0-49.9, adult (Final) - Unspecified ovarian cyst, left side (Final) - Disease of intestine, unspecified (Final) - Family history of malignant neoplasm of breast (Final) - Other acute postprocedural pain (Final) - Essential (primary) hypertension (Final) - Morbid (severe) obesity due to excess calories (Final) - Localized adiposity (Final) - Discharge Disposition: Home - Attending Physician: NICOLAS CHAIREZ, UNA Linder Admitting Physician: UNA VALENZUELA MD Referring Physician: UNA VALENZUELA MD Vital Signs Most recent to 1 oldest [Reference Range]: Vital Signs Routine Assessment Status/Type (07/20/18 3:00 PM) Temperature 98.3 DegF [96.8-99.7 DegF] (07/20/18 3:07 PM) Temp Method Oral (07/20/18 3:07 PM) Heart Rate 66 bpm (07/20/18 3:07 PM) Heart Rate Location Auto BP, Continuous Refinery Operator Light Ends Recovery (07/18/18 1:35 PM) Pulse Equipment SPO2 (07/20/18 3:07 PM) Respiratory Rate 17 br/min [15-20 br/min] (07/20/18 3:00 PM) Blood Pressure 130/82 mmHg [90-180/50-90 mmHg] (07/20/18 4:00 PM) NIBP MAP 118 mmHg (07/20/18 3:06 PM) NIBP MAP Calc 78 (07/18/18 2:45 PM) NIBP Alarms set and Yes on (07/18/18 1:35 PM) BP Location Arm, left (07/19/18 4:28 PM) BP Cuff Size Large (07/18/18 1:35 PM) Heart Rhythm Sinus/atrial rhythm Interpretation (07/18/18 1:35 PM) Problem List Condition Effective Dates Status [...] Severity Status ibuprofen Active naproxen Active Medications calcium (as carbonate) 500 mg oral tablet, chewable = 1 TAB, Chewed, Daily, # 150 TAB, 0 Refill(s), HOLD DOS, Indication: Vitamin [place]lin pplement Start Date: 06/23/18 Status: Ordered Depo-Provera 400 mg, IM, [id number] (Every 3 months), 0 Refill(s), LAST SHOT WAS 06/16/18, Indic ation: Hormone Replacement Start Date: 07/08/18 Status: Ordered multivitamin 1 TAB, PO, Daily, 0 Refill(s), STOP 7 DAYS PRE-OP, Indication: Vitamin Supplemen t Start Date: 06/23/18 Status: Ordered ProAir HFA 2 Puff, Inhalation, Daily, 0 Refill(s), USE DOS, Indication: Allergy Symptoms Start Date: 07/08/18 Status: Ordered traZODone 100 mg- 3 tabs, PO, QHS (At bedtime), 0 Refill(s), Indication: Sleep/Insomnia Start Date: 06/23/18 Status: Ordered Vitamin B Complex 100 1 TAB, PO, Daily, 0 Refill(s), HOLD DOS, Indication: Vitamin Supplement Start Date: 06/23/18 Status: Ordered Vitamin D3 = 1 TAB, PO, Daily, 0 Refill(s), 400 i.u. hold dos, Indication: Vitamin Suppleme nt Start Date: 06/23/18 Status: Ordered Results HEMATOLOGY Most recent to 1 oldest [Reference Range]: WBC [4.0-11.0 14.0 x10'3/microL x10'3/microL] *HI* (07/20/18 4:24 AM) RBC [3.90-5.60 4.83 x10'6/microL x10'6/microL] (07/20/18 4:24 AM) Hgb [12.0-16.0 g/dL] 13.5 g/dL (07/20/18 4:24 AM) Hct [35-47 %] 41 % (07/20/18 4:24 AM) Platelet [140-400 347 x10'3/microL x10'3/microL] (07/20/18 4:24 AM) MCV [81-99 fL] 85 fL (07/20/18 4:24 AM) MCH [27-34 pg] 28 pg (07/20/18 4:24 AM) MCHC [30-36 g/dL] 33 g/dL (07/20/18 4:24 AM) RDW [<=16.4 %] 13.2 % (07/20/18 4:24 AM) MPV [6.5-10.4 fL] 10.5 fL *HI* (07/20/18 4:24 AM) Neutrophils % [44-76 80 % %] *HI* (07/20/18 4:24 AM) Lymphocytes % [13-43 8 % %] *LOW* (07/20/18 4:24 AM) Monocytes % [0-13 %] 9 % (07/20/18 4:24 AM) Eosinophils % [0-7 2 % %] (07/20/18 4:24 AM) Basophils % [0-3 %] 0 % (07/20/18 4:24 AM) Neutrophils Abs 11.2 x10'3/microL [1.4-7.2 *HI* x10'3/microL] (07/20/18 4:24 AM) Lymphocytes Abs 1.2 x10'3/microL [1.2-3.4 (07/20/18 4:24 AM) x10'3/microL] Monocytes Abs 1.3 x10'3/microL [0.1-0.6 *HI* x10'3/microL] (07/20/18 4:24 AM) Eosinophils Abs 0.3 x10'3/microL [0.0-0.5 (07/20/18 4:24 AM) x10'3/microL] Basophils Abs 0.0 x10'3/microL [0.0-0.2 (07/20/18 4:24 AM) x10'3/microL] Immature Grans Abs 0.1 x10'3/microL [0.0-0.0 *HI* x10'3/microL] (07/20/18 4:24 AM) Immature 0 % Granulocytes % [0-0 (07/20/18 4:24 AM) %] PT [11.5-15.0 13.4 second second] (07/20/18 10:02 AM) INR 1.0 *NA* (07/20/18 10:02 AM) CHEMISTRY Most recent to 1 oldest [Reference Range]: Sodium [136-145 139 mmol/L mmol/L] (07/20/18 4:24 AM) Potassium [3.5-5.1 4.0 mmol/L mmol/L] (07/20/18 4:24 AM) Chloride [98-107 101 mmol/L mmol/L] (07/20/18 4:24 AM) CO2 [22-29 mmol/L] 26 mmol/L (07/20/18 4:24 AM) AGAP [3-12 mmol/L] 12 mmol/L (07/20/18 4:24 AM) Glucose [70-100 147 mg/dL mg/dL] *HI* (07/20/18 4:24 AM) Glucose, POC [70-100 152 mg/dL 1 mg/dL] *HI* (07/20/18 11:57 AM) BUN [8-20 mg/dL] 9 mg/dL (07/20/18 4:24 AM) Creatinine [0.7-1.2 0.5 mg/dL mg/dL] *LOW* (07/20/18 4:24 AM) Calcium [8.6-10.2 8.9 mg/dL mg/dL] (07/20/18 4:24 AM) Est CrCL (CG) 126.7 mL/min 2 (07/20/18 4:24 AM) GFR (CKD-EPI) >110.0 mL/min/1.73 m2 3 *NA* (07/20/18 4:24 AM) Albumin Level 4.1 g/dL [3.5-5.2 g/dL] (06/23/18 4:30 PM) Total Protein 6.7 g/dL [6.6-8.7 g/dL] (06/23/18 4:30 PM) Alk Phos [40-130 74 Inter. Units/L Inter. Units/L] (06/23/18 4:30 PM) AST [0-40 Units/L] 12 Units/L (06/23/18 4:30 PM) ALT(SGPT) [0-33 15 Inter. Units/L Inter. Units/L] (06/23/18 4:30 PM) Bili Total [0.0-1.2 0.2 mg/dL mg/dL] (06/23/18 4:30 PM) 1Result Comment: Meter ID: [id number] Aquatics Assistant Department Head: [id number] VINOD PLATT 2Result Comment: Estimated Creatinine Clearance calculated based on the Cockcroft-Gault formula. 3Result Comment: GFR calculated based on CKD-EPI Creatinine Equation (2009). Age(years) Average GFR 20-29 116 mL/min/1.73 m^2 30-39 107 mL/min/1.73 m^2 40-49 99 mL/min/1.73 m^2 50-59 93 mL/min/1.73 m^2 60-69 85 mL/min/1.73 m^2 70+ 75 mL/min/1.73 m^2 Acceptable GFR =>60 mL/min/1.73 m^2 Chronic Kidney Disease <60 mL/min/1.73 m^2 Kidney Failure <15 mL/min/1.73 m^2 ENDOCRINE/TUMOR MARKER Most recent to 1 oldest [Reference Range]: CA 125 [<=35.0 11.3 Units/mL Units/mL] (06/23/18 4:30 PM) IMMUNO/SEROLOGY Most recent to 1 oldest [Reference Range]: HCG Urine QuaL POC Negative 1 (07/18/18 8:38 AM) 1Result Comment: Meter ID: [id number] Aquatics Assistant Department Head: [id number] [facility] BLOOD BANK Most recent to 1 oldest [Reference Range]: ABORh O POS *Unknown* (07/18/18 8:50 AM) ABSC Gel Interp Negative (07/18/18 8:50 AM) Immunizations No data available for this section Procedures No data available for this section Social History Social History Type Response Functional Status No data available for this section Assessment and Plan No data available for this section Hospital Discharge Instructions No data available for this section
--- OUTSIDE RECORDS SUMMARY | 2020-05-02 17:56 | XMS REPORT | Summary of Care ---
Author Author [facility] Address Unknown Phone Unavailable Care Team Providers Care Halal Butcher Name Role Phone NANCY DELGADO DO PCP Encounter [facility] [id number] Date(s): 08/02/18 - 08/02/18 [facility] [address] [place] [address] [place] [phone] Encounter Diagnosis Mucinous cystadenoma of left ovary (Discharge Diagnosis) - 08/02/18 Mucinous cystadenoma of right ovary (Discharge Diagnosis) - 08/02/18 Endometriosis (Discharge Diagnosis) - 08/02/18 Benign neoplasm of right ovary (Final) - Discharge Disposition: Home - 01 Attending Physician: UNA VALENZUELA MD Admitting Physician: UNA VALENZUELA MD Referring Physician: UNA VALENZUELA MD Vital Signs Most recent to 1 oldest [Reference Range]: Temperature 99.0 DegF [96.8-99.7 DegF] (08/02/18 10:03 AM) Heart Rate 76 bpm (08/02/18 10:03 AM) Mean Arterial 144 mmHg Pressure (08/02/18 10:03 AM) Blood Pressure 159/136 mmHg [90-180/50-90 mmHg] (08/02/18 10:03 AM) Problem List Condition Effective Dates Status Health [...] Severity Status ibuprofen Active naproxen Active Medications No Known Medications Results No data available for this section Immunizations No data available for this section Procedures No data available for this section Social History Social History Type Response Functional Status No data available for this section Assessment and Plan No data available for this section Hospital Discharge Instructions No data available for this section
--- OUTSIDE RECORDS SUMMARY | 2020-05-02 17:56 | XMS REPORT | Continuity of Care Document ---
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 Name Role Phone [facility] Unavailable Unavailable Problems Problem Status Onset Date Classification Date Reported Comments Source BENIGN NEOPLASM OF RIGHT OVARY Active 08/02/2018 [facility] Benign neoplasm of left ovary 08/02/2018 Discharge Diagnosis 04/08/2019 [facility] Benign neoplasm of right ovary 08/02/2018 Discharge Diagnosis 04/08/2019 [facility] Endometriosis, unspecified 08/02/2018 Discharge Diagnosis 04/08/2019 [facility] OTHER NONINFLAMMATORY DISORDERS OF OVARY Active 07/20/2018 [facility] UNSPECIFIED OVARIAN CYST, RIGHT SIDE Active 07/20/2018 [facility] BODY MASS INDEX (BMI) 45.0-49.9, ADULT Active 07/20/2018 [facility] UNSPECIFIED OVARIAN CYST, LEFT SIDE Active 07/20/2018 [facility] DISEASE OF INTESTINE, UNSPECIFIED Active 07/20/2018 [facility] FAMILY HISTORY OF MALIGNANT NEOPLASM OF Active 07/20/2018 [facility] OTHER ACUTE POSTPROCEDURAL PAIN Active 07/20/2018 [facility] ESSENTIAL (PRIMARY) HYPERTENSION Active 07/20/2018 [facility] MORBID (SEVERE) OBESITY DUE TO EXCESS CA Active 07/20/2018 [facility] LOCALIZED ADIPOSITY Active 07/20/2018 [facility] Morbid (severe) obesity due to excess calories 07/19/2018 Discharge Diagnosis 04/06/2019 [facility] Other acute postprocedural pain 07/18/2018 Discharge Diagnosis 04/06/2019 [facility] NONINFLAMMATORY DISORDER OF OVARY, FALLO Active 06/23/2018 [facility] Noninflammatory disorder of ovary, fallo pian tube and broad ligament, unspecified 06/23/2018 Discharge Diagnosis 04/10/[address] [facility] [place] Family history of malignant neoplasm of breast 06/23/2018 Discharge Diagnosis 04/10/2019 [facility] Benign neoplasm of right ovary Final 04/08/2019 [facility] Body mass index 40+ - severely obese (finding) Active Problem 04/10/2019 [facility] [place] Depressive disorder (disorder) Active Problem 05/2019 [facility] [place] Endometriosis (disorder) Active Problem 04/10/2019 [facility] [place] Family history of malignant neoplasm of breast (situation) Active Prob napoleon 04/10/2019 [facility] Hypertensive disorder, systemic arterial (disorder) Active Problem 04/10/2019 [facility] [place] Mass of ovary (finding) Active Problem 04/10/[address] [facility] [place] Mucinous cystadenoma of ovary (disorder) Active Problem 04/10/2019 [facility] [place] Noninflammatory disorder of ovary, fallo pian tube and broad ligament, unspecified Final 04/10/2019 [facility] [place] Unspecified ovarian cyst, right side Final 04/06 [facility] [place] Body mass index (BMI) 45.0-49.9, adult Final 04/06 [facility] [place] Unspecified ovarian cyst, left side Final 04/06 [facility] Disease of intestine, unspecified Final 04/06 [facility] [place] Family history of malignant neoplasm of breast Final 04/06 [facility] Other acute postprocedural pain Final 04/06 [facility] [place] Essential (primary) hypertension Final 04/06 [facility] Morbid (severe) obesity due to excess calories Final 04/06 [facility] Localized adiposity Final 04/06/2019 [facility] Medications Medication Details Route Status Patient Instructions Ordering Provider Order Date Source Depo-Provera 400 mg, IM, Q3MON THS (Every 3 months), 0 Refill(s), LAST SHOT WAS 06/16/18, Indication: Hormone Replacement Active 07/08/2018 [facility] ProAir HFA 2 Puff, Inhalation, Daily, 0 Refill(s), USE DOS, Indication: Allergy Symptoms Active 07/08/2018 [facility] Vitamin B Complex 100 1 TAB, P O, Daily, 0 Refill(s), HOLD DOS, Indication: Vitamin Supplement Active 06/23/2018 [facility] Vitamin D3 = 1 TAB, PO, Daily, 0 Refill(s), 400 i.u. hold dos, Indication: Vitamin Supplement Active 06/23/2018 [facility] multivitamin 1 TAB, PO, Daily, 0 Refill(s), STOP 7 DAYS PRE-OP, Indication: Vitamin Supplement Active 06/23/2018 [facility] Calcium Carbonate 1250 MG Chewable Tablet = 1 TAB, Chewed, Daily, # 150 TAB, 0 Refill(s), HOLD DOS, Indication: Vitamin Supplement Active 06/23/2018 [facility] Trazodone 100 mg- 3 tabs, PO, QHS (At bedtime), 0 Refill(s), Indication: Sleep/Insomnia Active 06/23/2018 [facility] montelukast 10 mg oral tablet 1 TAB, PO, Daily, 0 Refill(s), TAKE DOS, Indication: Allergy Symptoms Active 06/23/2018 [facility] fluticasone furoate 0.0275 MG/ACTUAT Met ered Dose Nasal [place] 1 [place], Nasal, Daily, PRN for allergy s ymptoms, 0 Refill(s), USE DOS, Indication: Allergy Symptoms Active 06/23/2018 [facility] meloxicam 15 MG Oral Tablet 1 TAB, PO, Daily, # 30 TAB, 0 Refill(s), STOP 7 DAYS PRE-OP, Indication: Inflammation Active 06/23/2018 [facility] busPIRone 15 mg oral tablet = 1 TAB, PO, BID (2 times a day), 0 Refill(s), TAKE DOS, Indication: Anxiety Active 06/23/2018 [facility] escitalopram 20 mg oral tablet 1 TAB, PO, Daily, 0 Refill(s), TAKE DOS, Indication: Anxiety Active 06/23/2018 [facility] Symbicort 160 mcg-4.5 mcg/inh 2 Puff, Inhalation, BID (2 times a day), # 6 GM, 0 Refill(s), USE DOS Active 06/23/2018 [facility] Metformin hydrochloride 500 MG Oral Tablet 1 TAB, PO, QAM (Every morning), 0 Refill(s), DO NOT TAKE DOS, Indication: Blood Glucose Active 06/23/2018 [facility] pantoprazole 40 MG Enteric Coated Tablet [Protonix] 1 TAB, PO, BID (2 times a day), # 60 TAB, 0 Refill(s), TAKE DOS, Indication: Reflux Active 06/23/2018 [facility] on cetirizine 10 mg oral capsule 1 CAP, PO, Daily, 0 Refill(s), HOLD DOS, Indication: Allergy Symptoms Active 06/23/2018 [facility] Propranolol Hydrochloride 40 MG Oral Tablet 1 TAB, PO, BID (2 times a day), 0 Refill(s), TAKE DOS, Indication: High Blood Pressure Active 06/23/2018 [facility] on Allergies, Adverse Reactions, Alerts Substance Category Reaction Severity Reaction type Status Date Reported Comments Source ibuprofen Assertion Drug allergy Active [facility] on,[facility] naproxen Assertion Drug allergy Active [facility] Immunizations No Data Provided for This Section Results Order Name Results Value Reference Range Date Interpretation Comments Source CHEMISTRY Glucose, POC 152 mg /dL 70 - 100 07/20/2018 Result Comment: Meter ID: [id number]<b r/>[employer] Manager: [phone] SEVINOD PLATT [facility] HEMATOLOGY INR 1.0 07/20/2018 [facility] HEMATOLOGY PT 13.4 s 11.5 - 15.0 07/20/2018 [facility] Glucose WB POC SMM Glucose, POC 152 mg/dL 70 - 100 07/20/2018 H Meter ID: [id number]
[employer] Manager: [phone] AUDREY PLATT
[facility] Protime PT 13.4 second 11.5 - 15.0 07/20/2018 N [facility] Protime INR 1.0 07/20/2018 NA [facility] CHEMISTRY GFR (CKD-EPI) >110.0 mL/min/1.73 m2 07/20/2018 Result Comment: GFR calculated based on CKD-EPI Creatinine Equation (2009).
Age(years) Average GFR
20-29 116 mL/min/1.73 m^2
30-39 107 mL/min/1.73 m^2
40-49 99 mL/min/1.73 m^2
50-59 93 mL/min/1.73 m^2
60-69 85 mL/min/1.73 m^2
70+ 75 mL/min/1.73 m^2
&lt ;br/>Acceptable GFR =>60 mL/min/1.73 m^2
Chronic Kidney Disease <60 mL/min/1.73 m^2
Kidney Failure <15 mL/min/1.73 m^2 [facility] CHEMISTRY Est CrCL (CG) 126.7 mL/min 07/20/2018 Result Comment: Estimated Creatinine Mainor arance calculated based on the Cockcroft-Gault formula. [facility] [place] CHEMISTRY BUN 9 mg/dL 8 - 20 07/20/2018 [facility] [place] CHEMISTRY Creatinine 0.5 mg/dL 0.7 - 1.2 07/20/2018 [facility] CHEMISTRY AGAP 12 mmol/L 3 - 12 07/20/2018 [facility] CHEMISTRY Calcium 8.9 mg/dL 8.6 - 10.2 07/20/2018 [facility] CHEMI[facility]Y CO2 26 mmol/L 22 - 29 07/20/2018 [facility] CHEMISTRY Glucose 147 mg/dL 70 - 100 07/20/2018 [facility] CHEMISTRY Chloride 101 mmol/L 98 - 107 07/20/2018 [facility] [place] CHEMISTRY Potassium 4.0 mmol/L 3.5 - 5.1 07/20/2018 [facility] [place] CHEMISTRY Sodium 139 mmol/L 136 - 145 07/20/2018 [facility] HEMATOLOGY Monocytes % 9 % 0 - 13 07/20/2018 [facility] HEMATOLOGY Monocytes Abs 1.3 x 10'3/microL 0.1 - 0.6103 07/20/2018 [facility] [place] HEMATOLOGY Eosinophils Abs 0.3 x 10'3/microL 0.0 - 0.5103 07/20/2018 [facility] [place] [place] HEMATOLOGY Lymphocytes Abs 1.2 x 10'3/microL 1.2 - 3.4103 07/20/2018 [facility] [place] [place] HEMATOLOGY Basophils Abs 0.0 x 10'3/microL 0.0 - 0.2103 07/20/2018 [facility] [place] [place] HEMATOLOGY Eosinophils % 2 % 0 - 7 07/20/2018 [facility] HEM[facility] Basophils % 0 % 0 - 3 07/20/2018 [facility] HEMATOLOGY Neutrophils Abs 11.2 x10'3/microL 1.4 - 7.2103 07/20/2018 [facility] [place] [place] HEMATOLOGY Immature Grans Abs 0.1 x 10'3/microL 0.0 - 0.0103 07/20/2018 [facility] [place] HEMATOLOGY Lymphocytes % 8 % 13 - 43 07/20/2018 [facility] HEMATOLOGY Neutrophils % 80 % 44 - 76 07/20/2018 [facility] HEMATOLOGY Immature Granulocytes % 0 % 0 - 0 07/20/2018 [facility] HEMATOLOGY MPV 10.5 fL 6.5 - 10.4 07/20/2018 [facility] HEMATOLOGY Platelet 347 x 10'3/microL 140 - [id number] 07/20/2018 [facility] HEMATOLOGY MCV 85 fL 81 - 99 07/20/2018 [facility] HEMATOLOGY Hgb 13.5 g/dL 12.0 - 16.0 07/20/2018 [facility] HEMATOLOGY Hct 41 % 35 - 47 07/20/2018 [facility] HEMATOLOGY WBC 14.0 x10'3/microL 4.0 - 11.0103 07/20/2018 [facility] HEMATOLOGY RBC 4.83 x10'6/microL 3.90 - 5.05962 07/20/2018 [facility] HEMATOLOGY MCHC 33 g/dL 30 - 36 07/20/2018 [facility] HEMATOLOGY RDW 13.2 % <=16.4 % 07/20/2018 [facility] HEMATOLOGY MCH 28 pg 27 - 34 07/20/2018 [facility] Glucose WB POC SMM Glucose, POC 137 mg/dL 70 - 100 07/20/2018 H Meter ID: [id number]
Golf [employer] Manager: [phone] SEVINOD PLATT
[facility] Renal Funct Index GFR (CKD-EPI) >110.0 mL/min/1.73 m2 07/20/2018 NA GFR calculated based on CKD -EPI Creatinine Equation (2009).
Age(years) Average GFR
20-29 116 mL/min/1.73 m^2
30-39 107 mL/min/1.73 m^2
40-49 99 mL/min/1.73 m^2
50-59 93 mL/min/1.73 m^2
60-69 85 mL/min/1.73 m^2
70+ 75 mL/min/1.73 m^2

Acceptable GFR =>60 mL/min/1.73 m^2
Chronic Kidney Disease <60 mL/min/1.73 m^2
Kidney Failure <15 mL/min/1.73 m^2
[facility] BMP CO2 26 mmol/L 22 - 29 07/20/2018 N [facility] BMP AGAP 12 mmol/L 3 - 12 07/20/2018 N [facility] [place] BMP Glucose 147 mg/dL 70 - 100 07/20/2018 H [facility] [place] BMP BUN 9 mg/dL 8 - 20 07/20/2018 N [facility] [place] BMP Creatinine 0.5 mg/dL 0.7 - 1.2 07/20/2018 L The presence of ketone bodies can cause artificially high results in serum, plasma and urine.
[facility] [place] BMP Calcium 8.9 mg/dL 8.6 - 10.2 07/20/2018 N [facility] [place] BMP Sodium 139 mmol/L 136 - 145 07/20/2018 N [facility] [place] BMP Potassium 4.0 mmol/L 3.5 - 5.1 07/20/2018 N [facility] [place] BMP Chloride 101 mmol/L 98 - 107 07/20/2018 N [facility] [place] Auto Diff Neutrophils 80 % 44 - 76 07/20/2018 H [facility] [place] Auto Diff Lymphocytes % 8 % 13 - 43 07/20/2018 L [facility] [place] Auto Diff Monocytes % 9 % 0 - 13 07/20/2018 N [facility] [place] Auto Diff Eosinophils % 2 % 0 - 7 07/20/2018 N [facility] [place] Auto Diff Basophils % 0 % 0 - 3 07/20/2018 N [facility] [place] Auto Diff Immature Granulocytes % 0 % 0 - 0 07/20/2018 N [facility] [place] Auto Diff Neutro Absolute 11.2 x 10'3/microL 1.4 - 7.2 07/20/2018 H [facility] [place] Auto Diff Lymph Absolute 1.2 x1 0'3/microL 1.2 - 3.4 07/20/2018 N [facility] [place] Auto Diff Shannon Absolute 1.3 x1 0'3/microL 0.1 - 0.6 07/20/2018 H [facility] [place] Auto Diff Eos Absolute 0.3 x1 0'3/microL 0.0 - 0.5 07/20/2018 N [facility] [place] Auto Diff Basophil Absolute 0.0 x1 0'3/microL 0.0 - 0.2 07/20/2018 N [facility] [place] Auto Diff Immature Grans Abs 0.1 x1 0'3/microL 0.0 - 0.0 07/20/2018 H [facility] [place] CBC/Diff WBC 14.0 x10'3/micr oL 4.0 - 11.0 07/20/2018 H [facility] [place] CBC/Diff RBC 4.83 x10'6/micr oL 3.90 - 5.60 07/20/2018 N [facility] [place] CBC/Diff Hgb 13.5 g/dL 12.0 - 16.0 07/20/2018 N [facility] [place] CBC/Diff Hct 41 % 35 - 47 07/20/2018 N [facility] [place] CBC/Diff MCV 85 fL 81 - 99 07/20/2018 N [facility] [place] CBC/Diff MCH 28 pg 27 - 34 07/20/2018 N [facility] [place] CBC/Diff MCHC 33 g/dL 30 - 36 07/20/2018 N [facility] [place] CBC/Diff RDW 13.2 % - <=16.4 07/20/2018 N [facility] [place] CBC/Diff Platelet 347 x10 '3/microL 140 - 400 07/20/2018 N [facility] [place] CBC/Diff MPV 10.5 fL 6.5 - 10.4 07/20/2018 H [facility] [place] Glucose WB POC SMM Glucose, POC 128 mg/dL 70 - 100 07/19/2018 H Meter ID: [id number]
[employer] Manager: [phone] JOSETTEDARIUSZ HARMON
[facility] [place] Glucose WB POC SMM Glucose, POC 128 mg/dL 70 - 100 07/19/2018 H Meter ID: [id number]
[employer] Manager: [phone] JUHI QUICKSSICA ALEM
[facility] [place] Glucose WB POC SMM Glucose, POC 97 mg/dL 70 - 100 07/19/2018 N Meter ID: [id number]
[employer] Manager: [phone] JUHI QUICKSSICA ALEM
[facility] [place] Glucose WB POC SMM Glucose, POC 125 mg/dL 70 - 100 07/19/2018 H Meter ID: [id number]
[employer] Manager: [phone] JUHI FERRARA
[facility] [place] Renal Funct Index GFR (CKD-EPI) >110.0 mL/min/1.73 m2 07/19/2018 NA GFR calculated based on CKD -EPI Creatinine Equation (2009).
Age(years) Average GFR
20-29 116 mL/min/1.73 m^2
30-39 107 mL/min/1.73 m^2
40-49 99 mL/min/1.73 m^2
50-59 93 mL/min/1.73 m^2
60-69 85 mL/min/1.73 m^2
70+ 75 mL/min/1.73 m^2

Acceptable GFR =>60 mL/min/1.73 m^2
Chronic Kidney Disease <60 mL/min/1.73 m^2
Kidney Failure <15 mL/min/1.73 m^2
[facility] [place] BMP CO2 24 mmol/L 22 - 29 07/19/2018 N [facility] [place] BMP AGAP 10 mmol/L 3 - 12 07/19/2018 N [facility] [place] BMP Glucose 123 mg/dL 70 - 100 07/19/2018 H [facility] [place] BMP BUN 9 mg/dL 8 - 20 07/19/2018 N [facility] [place] BMP Creatinine 0.5 mg/dL 0.7 - 1.2 07/19/2018 L The presence of ketone bodies can cause artificially high results in serum, plasma and urine.
[facility] [place] BMP Calcium 8.2 mg/dL 8.6 - 10.2 07/19/2018 L [facility] [place] BMP Sodium 139 mmol/L 136 - 145 07/19/2018 N [facility] [place] BMP Potassium 4.0 mmol/L 3.5 - 5.1 07/19/2018 N [facility] [place] BMP Chloride 105 mmol/L 98 - 107 07/19/2018 N [facility] [place] Auto Diff Neutrophils 76 % 44 - 76 07/19/2018 N [facility] [place] Auto Diff Lymphocytes % 13 % 13 - 43 07/19/2018 N [facility] [place] Auto Diff Monocytes % 9 % 0 - 13 07/19/2018 N [facility] [place] Auto Diff Eosinophils % 1 % 0 - 7 07/19/2018 N [facility] [place] Auto Diff Basophils % 0 % 0 - 3 07/19/2018 N [facility] [place] Auto Diff Immature Granulocytes % 0 % 0 - 0 07/19/2018 N [facility] [place] Auto Diff Neutro Absolute 9.0 x1 0'3/microL 1.4 - 7.2 07/19/2018 H [facility] [place] Auto Diff Lymph Absolute 1.6 x1 0'3/microL 1.2 - 3.4 07/19/2018 N [facility] [place] Auto Diff Shannon Absolute 1.1 x1 0'3/microL 0.1 - 0.6 07/19/2018 H [facility] [place] Auto Diff Eos Absolute 0.1 x1 0'3/microL 0.0 - 0.5 07/19/2018 N [facility] [place] Auto Diff Basophil Absolute 0.0 x1 0'3/microL 0.0 - 0.2 07/19/2018 N [facility] [place] Auto Diff Immature Grans Abs 0.0 x1 0'3/microL 0.0 - 0.0 07/19/2018 N [facility] [place] CBC/Diff WBC 11.9 x10'3/micr oL 4.0 - 11.0 07/19/2018 H [facility] [place] CBC/Diff RBC 4.75 x10'6/micr oL 3.90 - 5.60 07/19/2018 N [facility] [place] CBC/Diff Hgb 13.0 g/dL 12.0 - 16.0 07/19/2018 N [facility] [place] CBC/Diff Hct 40 % 35 - 47 07/19/2018 N [facility] [place] CBC/Diff MCV 85 fL 81 - 99 07/19/2018 N [facility] [place] CBC/Diff MCH 27 pg 27 - 34 07[facility]19/2018 [facility] [place] [facility] MCHC 32 g/dL 30 - 36 07/19/2018 N [facility] [place] CBC/Diff RDW 13.2 % - <=16.4 07/19/2018 N [facility] [place] CBC/Diff Platelet 291 x10 '3/microL 140 - 400 07/19/2018 N [facility] CBC/Diff MPV 10.2 fL 6.5 - 10.4 07/19/2018 N [facility] [place] Glucose WB POC SMM Glucose, POC 101 mg/dL 70 - 100 07/18/2018 H Meter ID: [id number]
[employer] Manager: [phone] JOSETTEDARIUSZ HARMON
[facility] [place] Glucose WB POC SMM Glucose, POC 96 mg/dL 70 - 100 07/18/2018 N Meter ID: [id number]
[employer] Manager: [phone] BRIDGET MEY
[facility] [place] Glucose WB POC SMM Glucose, POC 126 mg/dL 70 - 100 07/18/2018 H Meter ID: [id number]
[employer] Manager: [phone] SKYLAR STRAUSS
[facility] BLOOD BANK ABSC Gel Interp Negat carlee
(07/18/18 8:50 AM) 07/18/2018 [facility] BLOOD BANK ABORh O POS 07/18/2018 [facility] IMMUNO/SEROLOGY HCG Urine QuaL POC Negative <sup>1</sup>
(07/18/18 8:38 AM) 07/18/2018 Result Comment: Meter ID: [id number]
[employer] Manager: [phone] JEFF GRIFFIN [facility] ABSC 2 Cell Gel ABSC Gel Interp NEG 07/18/2018 N [facility] ABORh ABORh O POS 07/18/2018 NA [facility] Glucose WB POC SMM Glucose, POC 107 mg/dL 70 - 100 07/18/2018 H Meter ID: [id number]
[employer] Manager: [phone] TAYLOR
[facility] UCG POC SMM HCG Urine QuaL POC Nega tive 07/18/2018 N Meter ID: [id number]
[employer] Manager: [phone] JEFF GRIFFIN
[facility] CHEMISTRY Alk Phos 74 [iU]/d 40 - 130. 06/23/2018 [facility] CHEMISTRY AST 12 Units/L 0 - 40 06/23/2018 [facility] CHEMISTRY ALT(SGPT) 15 [iU]/d 0 - 33. 06/23/2018 [facility] CHEMISTRY Total Protein 6.7 g/ dL 6.6 - 8.7 06/23/2018 [facility] CHEMISTRY Albumin Level 4.1 g/ dL 3.5 - 5.2 06/23/2018 [facility] CHEMISTRY Bili Total 0.2 mg/dL 0.0 - 1.2 06/23/2018 [facility] ENDOCRINE/TUMOR MARKER CA 125 11.3 Units/mL <=35.0 Units/mL 06/23/2018 [facility] ABSC 2 Cell Gel ABSC Gel Interp NEG 06/23/2018 N [facility] ABORh ABORh O POS 06/23/2018 NA [facility] CA 125 CA 125 11.3 Units/mL - <=35.0 06/23/2018 N Testing by [facility] CA 125 electrochemilumi nescent immunoassay
[facility] Renal Funct Index GFR (CKD-EPI) 106.0 mL/min/1.73 m2 06/23/2018 NA GFR calculated based on CKD -EPI Creatinine Equation (2009).
Age(years) Average GFR
20-29 116 mL/min/1.73 m^2
30-39 107 mL/min/1.73 m^2
40-49 99 mL/min/1.73 m^2
50-59 93 mL/min/1.73 m^2
60-69 85 mL/min/1.73 m^2
70+ 75 mL/min/1.73 m^2

Acceptable GFR =>60 mL/min/1.73 m^2
Chronic Kidney Disease <60 mL/min/1.73 m^2
Kidney Failure <15 mL/min/1.73 m^2
[facility] [place] CMP CO2 22 mmol/L 22 - 29 06/23/2018 N [facility] CMP AGAP 12 mmol/L 3 - 12 06/23/2018 N [facility] [place] CMP Glucose 104 mg/dL 70 - 100 06/23/2018 H [facility] [place] CMP BUN 14 mg/dL 8 - 20 06/23/2018 N [facility] CMP Creatinine 0.6 mg/dL 0.7 - 1.2 06/23/2018 L The presence of ketone bodies can cause artificially high results in serum, plasma and urine.
[facility] [place] CMP Calcium 9.0 mg/dL 8.6 - 10.2 06/23/2018 N [facility] [place] CMP Total Protein 6.7 g/dL 6.6 - 8.7 06/23/2018 N [facility] [place] CMP Albumin Level 4.1 g/dL 3.5 - 5.2 06/23/2018 N [facility] [place] CMP Bili Total 0.2 mg/dL 0.0 - 1.2 06/23/2018 N Samples containing indocyanine green mus t not be measured.
[facility] [place] CMP Alk Phos 74 Inter. Units/L 40 - 130 06/23/2018 N [facility] [place] CMP AST 12 Units/L 0 - 40 06/23/2018 N [facility] [place] CMP ALT(SGPT) 15 Inter. Un its/L 0 - 33 06/23/2018 N [facility] CMP Sodium 140 mmol/L 136 - 145 06/23/2018 N [facility] [place] CMP Potassium 3.7 mmol/L 3.5 - 5.1 06/23/2018 N [facility] CMP Chloride 106 mmol/L 98 - 107 06/23/2018 N [facility] [place] Auto Diff Neutrophils 53 % 44 - 76 06/23/2018 N [facility] [place] Auto Diff Lymphocytes % 34 % 13 - 43 06/23/2018 N [facility] [place] Auto Diff Monocytes % 10 % 0 - 13 06/23/2018 N [facility] [place] Auto Diff Eosinophils % 2 % 0 - 7 06/23/2018 N [facility] [place] Auto Diff Basophils % 1 % 0 - 3 06/23/2018 N [facility] [place] Auto Diff Immature Granulocytes % 0 % 0 - 0 06/23/2018 N [facility] [place] Auto Diff Neutro Absolute 4.8 x1 0'3/microL 1.4 - 7.2 06/23/2018 N [facility] [place] Auto Diff Lymph Absolute 3.1 x1 0'3/microL 1.2 - 3.4 06/23/2018 N [facility] [place] Auto Diff Shannon Absolute 0.9 x1 0'3/microL 0.1 - 0.6 06/23/2018 H [facility] [place] Auto Diff Eos Absolute 0.2 x1 0'3/microL 0.0 - 0.5 06/23/2018 N [facility] Auto Diff Basophil Absolute 0.1 x1 0'3/microL 0.0 - 0.2 06/23/2018 N [facility] [place] Auto Diff Immature Grans Abs 0.0 x1 0'3/microL 0.0 - 0.0 06/23/2018 N [facility] [place] CBC/Diff WBC 9.0 x10'3/micro L 4.0 - 11.0 06/23/2018 N [facility] CBC/Diff RBC 4.53 x10'6/micr oL 3.90 - 5.60 06/23/2018 N [facility] CBC/Diff Hgb 12.8 g/dL 12.0 - 16.0 06/23/2018 N [facility] CBC/Diff Hct 40 % 35 - 47 06/23/2018 N [facility] CBC/Diff MCV 88 fL 81 - 99 06/23/2018 N [facility] CBC/Diff MCH 28 pg 27 - 34 06/23/2018 N [facility] CBC/Diff MCHC 32 g/dL 30 - 36 06/23/2018 N [facility] CBC/Diff RDW 13.4 % - <=16.4 06/23/2018 N [facility] CBC/Diff Platelet 304 x10 '3/microL 140 - 400 06/23/2018 N [facility] CBC/Diff MPV 10.2 fL 6.5 - 10.4 06/23/2018 N [facility] No data available for this section No data available for this section [facility] Pathology Reports Report Value Date Source Surgical Pathology Final Report Field Technician Field Technician: NEREIDA Pathologist group, [facility] SURGICAL PATHOLOGY REPORT [facility] [address] [place] [id number] Surgical Pathology Report [id number] FINAL DIAGNOSIS: A. Fallopian tube and ovary, right, right salpingo-oophorectomy: Ovary: - Mucinous cystadenoma - Areas suggestive of background endometriosis - No borderline and malignant features identified. Fallopian tube: - Paratubal cysts, otherwise no significant histopathologic changes. B. Fallopian tube and ovary, left, salpingectomy: Ovary: - Mucinous cystadenoma - Areas suggestive of background endometriosis - No borderline and malignant features identified. Fallopian tube: - Focal paratubal endometriosis, otherwise no significant histopathologic changes. C. Uterus and cervix, hysterectomy: Uterus: - Atrophic endometrium with leiomyomas (up to 0.6 cm) - Negative for hyperplasia and malignancy. Cervix: - No significant histopathologic changes. D. Omentum, omentectomy: - Negative for malignancy. AL Specimen(s) Received: A. Right tube and ovary B. Left tube and ovary C. Uterus and cervix D. Omentum Clinical Information: Intraabdominal and pelvic swelling Gross Description: A. Received fresh for frozen section labeled with the patient name and "right tube and ovary" is an adnexa including a 4.6 x 0.6 cm fimbriated fallopian tube attached to a 6.8 x 3.5 x 2.5 cm cystic ovary. The external surface of the ovary is wrinkled and aguirre-pink. The fallopian tube is THENIKL, GABY K [id number] grossly unremarkable. Sectioning through the ovary reveals a multilobulated, cystic cut surfaces with no papillary excrescences noted grossly. Investigator Fraud sections of the ovary are submitted for frozen section in cassette FSA1. Investigator Fraud sections of the fallopian tube are submitted in cassette A1 and additional junior sales representative sections of the ovarian cyst are submitted in cassettes A2 through A6. B. Received fresh for frozen section labeled with the patient name and "left tube and ovary" is an adnexa including a 4.0 x 0.4 cm fimbriated fallopian tube attached to a 4.5 x 4.0 x 2.9 cm cystic ovary. The external surface of the ovary is smooth, glistening and aguirre-pink. The fallopian tube is grossly unremarkable. Sectioning through the ovary reveals a unilocular, smooth walled cyst. Investigator Fraud sections are submitted in cassette FSB1. Investigator Fraud sections of the fallopian tube are submitted in cassette B1 and additional junior sales representative sections of the ovary and cyst are submitted in cassettes B1-6. C. Received fresh labeled with the patient name and "uterus and cervix" is a 71 gram, 11.9 x 4.5 x 4.5 cm uterus and cervix. The serosa is glistening and aguirre-pink. The uterus is opened laterally to reveal a glistening, aguirre endocervical canal and a triangular, symmetrical endometrial cavity. The endometrium is glistening and pink and measures 0.1 cm in thickness. Sectioning reveals solid, aguirre-pink myometrium measuring up to 2.3 cm in thickness, displaying three well circumscribed intramural fibroid nodules ranging from 0.4 to 0.6 cm in diameter. Sections are submitted as follows: C1 - anterior cervix C2 - posterior cervix C3 - anterior endomyometrium C4 - posterior endomyometrium C5 - junior sales representative sections of additional fibroid nodules D. Received in formalin labeled with the patient name and "omentum" is a 30 x 13 x 3 cm fragment of lobulated yellow omentum. Sectioning reveals no grossly appreciable nodules or lesions. Investigator Fraud sections are submitted in cassettes D1-D4. 07/18/2018 [facility] Frozen Section Diagnosis: A. Benign cystadenoma. B. Benign cystadenoma with mucinous features. Reported by Dr. Diez at 11:20. Intraoperative Consultation C. Leiomyoma, otherwise no gross abnormalities. Reported by Dr. Diez at 11:50. 07/18/2018 [facility] Non-Mortar Man Cytology Final Report Field Technician Field Technician: NEREIDA Pathologist group, [facility] NON-GYNECOLOGIC CYTOLOGY REPORT [address] [address] Cytology Non-QUENCHER OPERATOR Report [id number] Specimen: PELVIC WASHINGS INTERPRETATION: No malignant cells identified. [facility] Comment: Cellular material from fluid (cytologic examination): -Mesothelial cells and inflammatory cells. Cellular material from fluid (cell block examination): - Blood. Clinical Information: Intra - abdominal and pelvic swelling, mass and lump, unspecified site Gross Description: 110 cc of bloody fluid was submitted to cytology. A fluid-enhanced cellular recovery technique was utilized in order to obtain sufficient material to prepare a single, Papanicolaou-stained, thin prep cytologic smear. In addition, two cyto-spin smears and a cell block were prepared. [facility]/07/19/2018 [facility] END OF REPORT GABY GSATON [id number] 07/18/2018 [facility] Diagnostic Reports Report Value Date Source [place] [address] Radiology Reports CPT Codes: 30189 CDM Codes: 4808754 (US Pelvis Limited or Follow Up) Reason for exam: possible seroma post-op 2 QAMAR BSO Report ULTRASOUND OF THE PELVIS, limited CLINICAL HISTORY: Two days post hysterectomy. Pain and swelling along the incision. Evaluate for seroma. FINDINGS: Ultrasound imaging in the lower abdomen in the midline into the right of midline along the incision and in the area of the clinical concern demonstrates no fluid collection, mass or abscess. IMPRESSION: No seroma or abscess seen along the incision in the area of clinical concern. Dictated by Dr. Fritz Porras MD Dictated on 07/20/2018 11:[address] Fritz Porras MD Location [id number] Final Transcribed by: ROXANNA 07/20/18 11:31 Signed by: FRITZ PORRAS MD 07/20/18 11:31 GABY GASTON [id number] 07/20/2018 [facility] XR Chest 2V [facility] [address] [address] Radiology Reports CPT Codes: 54673 CDM Codes: 6343272 (XR Chest 2V) Reason for exam: pre-op Report Two views of the chest. Clinical History: Preop testing for hysterectomy Comparison: None Findings: Heart size is normal without venous congestion or pleural fluid. There are no infiltrates. The mediastinum is normal. Impression: No acute findings. Dictated by Dr. Stacey East MD Dictated on 06/23/2018 5:[address] Stacey East MD [facility] Final Transcribed by: JOHNNY 06/23/18 17:09 Signed by: SARAH EAST MD 06/23/18 17:09 GABY GASTON [id number] 06/23/2018 [facility] Consultation Notes Results Value Date Source Operative Report DATE: 2017 SURGEON: UNA COLLINS MD PREOPERATIVE DIAGNOSIS: Bilateral ovarian masses, family history of breast cancer. POSTOPERATIVE DIAGNOSIS: 1. Bilateral ovarian masses. 2. Mass of the mid sigmoid colon. 3. Family history of breast cancer. PROCEDURE PERFORMED: Total abdominal hysterectomy, bilateral salpingo-oophorectomy, infracolic omentectomy, and washings. ANESTHESIA: General. INDICATIONS: The patient was referred with bilateral ovarian masses, that were increasing in size. She also had a family history of breast cancer. She was brought to the operating room for definitive surgical intervention. At the time of the surgical procedures, she was found to have a mass in the mid sigmoid colon. This was felt to occupy mainly the mesentery, although it was difficult to determine the extent of mucosal involvement. There was no evidence of bowel obstruction. The above procedure was performed with a plan to refer the patient for colonoscopy. DESCRIPTION OF PROCEDURE: The patient was taken to the operating room, was placed on the operating table in a supine position. After the induction of satisfactory general anesthesia, the perineum and vagina were prepped and a Milligan catheter was placed into the bladder. The abdomen was then prepped with DuraPrep and draped in a sterile field. The abdomen was entered sharply through a low midline incision. This was extended to subcutaneous tissue and fascia, the muscles were split in the midline and the peritoneal cavity was entered. Pelvic washings were obtained. Immediately encountered were the bilateral ovarian masses. A Bookwalter retractor was placed and the bowel was packed cephalad. The uterine cornua were grasped with long Pean clamps. The right round ligament was skeletonized, sealed and cut with the LigaSure. The anterior and posterior leaves of the broad ligament on the right were incised with electrocautery. The right retroperitoneal space was developed. The right ureter was positively identified. The right infundibulopelvic ligament was skeletonized, clamped with Javier clamps, cut, suture ligated and free tied. The right ovarian mass measured approximately 8 cm. It was mobilized medially and superiorly. The utero-ovarian ligament, fallopian tube were then cross clamped with a curved parametrial clamp. The right ovarian mass and tube were then passed from the operative field as a surgical specimen. The pedicle was ligated with 0 Vicryl. Attention was turned toward the left. The left round ligament was skeletonized, sealed and cut with the LigaSure. The anterior and posterior leaves of the broad ligament were incised with electrocautery. The left retroperitoneal space was developed. The left ureter was positively identified. The left infundibulopelvic ligament was skeletonized, clamped with Javier clamps, cut, suture ligated and free tied. The left ovarian mass and tube were then mobilized superiorly and medially. The utero-ovarian ligament and fallopian tube were cross clamped with a curved parametrial clamp. The left tube and ovarian mass were passed from the operative field as a surgical specimen. The anterior peritoneum overlying the bladder was incised across the midline and the bladder flap was developed. The uterine vessels were skeletonized bilaterally, clamped with Javier clamps, sealed and cut with the LigaSure and ligated with 0 Vicryl. The parametrium and paracervical tissues were sequentially clamped, cut, and ligated until the vaginal angles were reached. The vagina was then cross clamped with curved parametrial clamps. The vagina was incised circumferentially, and the uterus with attached cervix was passed from the operative field as a surgical specimen. The vaginal cuff was closed with [id number] sutures of #0 Vicryl. The pelvis was irrigated. Hemostasis was obtained and FloSeal was placed. The small and large intestine were then evaluated in their entirety. In the mid sigmoid, there was a mass that occupied the mesentery and possibly a portion of the mucosa. This appeared to possibly be inflammatory in nature. There was no evidence of obstruction. The remainder of the colon was within normal limits. The small intestine had no abnormality on the serosa or within the mesentery. The upper abdomen was explored and was found to be within normal limits. A total infracolic omentectomy was then performed employing the LigaSure and electrocautery. The omentum was passed from the operative field as a surgical specimen. The patient not had a colonoscopy in the past. The colon findings were felt to more likely be inflammatory than malignant, though this was not entirely known. The plan was to refer the patient for colonoscopy in the postoperative period. All instruments and laparotomy packs were then removed. The abdominal wall was closed with a running [place] closure of #0 PDS. The subcutaneous tissue was irrigated and closed with 3-0 Vicryl. The skin was closed with 4-0 Monocryl subcuticular suture as well as skin glue and Steri-Strips. The patient tolerated the procedure well. Estimated blood loss was approximately 100 mL. Sponge and instrument counts were correct. The patient was taken to the recovery room in satisfactory condition. [id number] 07/18/2018 [facility] Operative Report Date of Surge ry July 18, 2018 Preoperative Diagnosis bilateral ovarian masses Postoperative Diagnosis bilateral ovarian masses Procedure Performed TAHBSO, washings, omentectomy Type of Anesthesia general Indications bilateral ovarian masses increasing in size, family history of breast cancer Surgeon Una Collins MD Planning Advisor(s) none Findings bilateral ovarian masses, thickening of mesentery of sigmoid colon Unanticipated Events/Complications none Specimen(s) uterus, tubes, ovaries, omentum Implants and Devices Floseal Estimated Blood Loss 100cc Patient Condition/Disposition good to recovery room 07/18/2018 [facility] Discharge Summaries Results Value Date Source Discharge Summary Date of Admi ssion 07/18/18 Date of Discharge 07/20/18 Reason for Hospitalization Bilateral ovarian masses Subjective POD 2 total abdominal hysterectomy, bilateral salpingo-oophorectomy, washings for bilateral ovarian masses, massive sigmoid colon, family history of breast cancer. Patient remained afebrile and normotensive overnight adequate urine output 15 50 cc by void. Patient hemoglobin 13.5 from 13.0 white count 14.0 from 11.9. Patient ambulating without difficulty and tolerating general healthful diet. Patient states her pain was well controlled with epidural, however epidural became disconnected during the night, and states her pain is now 8/10. She did take p.o. p.r.n. pain medications few moments ago but still has not had relief from pain. Patient reports flatus started it during the night. Heparin given b.i.d. yesterday for prophylaxis, received Lovenox 4 hr following removal of epidural catheter. Objective Vitals and Measurements (Last Charted) T: 99 F TMIN: 97.9 F TMAX: 99 F HR: 73 RR: 16 BP: 128/68 SpO2: 94% WT: 138.65 kg Physical Exam General Appearance:Alert, cooperative, no distress, appears stated age Skin:Skin color, texture, turgor normal, no rashes or lesions, midline abdominal incision with edges well approximated Steri-Strips intact, erythema and edema to the right of the incision, has been marked. Neurologic:The patient is alert and oriented times 3. No sensory or motor deficit, normal strength, and sensation throughout Head:Normocephalic, without obvious abnormality, atraumatic Eyes:Conjunctiva/corneas clear, EOMs intact, Non-icteric sclera, both eyes Neck:Supple, symmetrical, trachea midline Chest:Clear to auscultation bilaterally without crackles or wheezing, respirations unlabored Cardiovascular:Regular rhythm, no murmur, rub or gallop. Pulses normal. Abdomen:Soft, normal bowel sounds, incisional tenderness. Extremities:Extremities normal, atraumatic, no cyanosis, edema or clubbing Psychiatric:Cooperative, appropriate mood and affect, Normal judgment. Lab Results LABORATORY RESULTS CBC and Plt w/o Diff WBC 14.0 x10'3/microL 07/20/18 0424 RBC 4.83 x10'6/microL 07/20/18 0424 Hgb 13.5 g/dL 07/20/18 0424 Hct 41 % 07/20/18423 Platelet 347 x10'3/microL 07/20/18 042 Prothrombin Time with INR INR No results in last 24hrs PTT_INR No results in last 24hrs PTT PTT No results in last 24hrs Basic Metabolic Panel Sodium 139 mmol/L 07/20/18 042 Potassium 4.0 mmol/L 07/20/18423 Chloride 101 mmol/L 07/20/18423 CO2 26 mmol/L 07/20/18423 Glucose, POC 137 mg/dL 07/20/18 0752 BUN 9 mg/dL 07/20/18423 Creatinine 0.5 mg/dL 07/20/18423 Calcium 8.9 mg/dL 07/20/18423 Radiology (Past 36 Hrs) COMPLETED RADIOLOGY IMAGING STUDIES: No Imaging Results in the last 36 hours Discharge Diagnosis Visit Diagnoses Mass of left ovary N83.9, Mass of right ovary N83.9 Morbid obesity with body mass index (BMI) of 45.0 to 49.9 in adult E66.01 Post-op pain G89.18 Hospital Course Visit July 18, 2018 for total abdominal hysterectomy, bilateral salpingo- oophorectomy, washings for bilateral ovarian masses, massive sigmoid colon, family history of breast cancer. Patient tolerated procedure and was admitted to the Oncology unit. Patient with epidural catheter for pain management postoperative day 1. POD 1 patient with heparin b.i.d., patient-controlled epidural analgesia for pain management, tolerating general diet, hemoglobin 13.0 from 12.8 white count 11.9 from 9.0, patient afebrile and normotensive, adequate urine output. Patient ambulating without difficulty and voiding without difficulty. POD 2 epidural catheter discontinued p.o. p.r.n. pain medications administered. Patient reports flatus, ambulating without difficulty. Erythema and edema seen at right side of incision patient given 3 g Ancef IV. Patient is started on Lovenox prophylactic 4 hr after epidural catheter removed. Incisions clean and dry edges well approximated Steri-Strips intact, erythema and edema right side of lower midline abdominal incision. Significant Findings Bilateral ovarian masses. Mass of the mid sigmoid colon. Family history of breast cancer. Transition Plan Discharge Instruction(s): Symptom to Report: Pain uncontrolled by medications, Redness, oozing, swelling, Odor/drainage at incision site, Nausea/Vomiting, Fever greater than 100.4, Dizziness or lightheadedness, Bleeding or fluid from vagina Discharge to: Home Patient Condition at Discharge: Stable Discharge instructions Special Instructions: Your pathology will be reviewed with you at your post-op appointment. If you desire to know your pathology results prior to this appointment, please call the office at [phone] and ask to speak with a memenr of the nursing staff. Diet: General healthful diet Resume Activities: As tolerated Discharge Resume Activity Special Instructions: No driving X 2 weeks or while taking pain meds No lifting > 10 lb X 2 months Nothing in vagina X 2 months Discharge Literature Provided: Postoperative instructions, Medications Follow Up No Follow-up Information Pending Test Results No Pending Results Discharge Meds Discharge Medication List Medication acetaminophen-oxyCODONE(Percocet 5/325 oral tablet)(acetaminophen-oxyCODONE) 1 TAB By Mouth Every 4 hours PRN as needed for pain albuterol(ProAir HFA)(albuterol) 2 Puff Inhalation DAILY Comment(s): USE DOS budesonide-formoterol(Symbicort 160 mcg-4.5 mcg/inh)(budesonide-formoterol) 2 Puff Inhalation 2 TIMES A DAY Comment(s): USE DOS busPIRone(busPIRone 15 mg oral tablet)(busPIRone) 15 mg 1 TAB By Mouth 2 TIMES A DAY Comment(s): TAKE DOS calcium carbonate(calcium (as carbonate) 500 mg oral tablet, chewable)(calcium carbonate) 500 mg 1 TAB Chewed DAILY Comment(s): hold dos. HOLD DOS cephalexin(Keflex 500 mg oral capsule)(cephalexin) 500 mg 1 CAP By Mouth 4 TIMES A DAY For 10 day(s) cetirizine(cetirizine 10 mg oral capsule)(cetirizine) 10 mg 1 CAP By Mouth DAILY Comment(s): HOLD DOS cholecalciferol(Vitamin D3)(cholecalciferol) 1 TAB By Mouth DAILY Comment(s): hold dos. 400 i.u. hold dos docusate(Colace 100 mg oral capsule)(docusate) 100 mg 1 CAP By Mouth 2 TIMES A DAY PRN as needed for constipation escitalopram(escitalopram 20 mg oral tablet)(escitalopram) 20 mg 1 TAB By Mouth DAILY Comment(s): TAKE DOS fluticasone nasal(fluticasone 27.5 mcg/inh nasal spray)(fluticasone nasal) 1 [place] In Nose DAILY PRN for allergy symptoms Comment(s): USE DOS for allergy symptoms medroxyPROGESTERone(Depo-Provera)(medroxyPROGESTERone) 400 mg Intramuscular every 3 months Comment(s): LAST SHOT WAS 06/16/18 meloxicam(meloxicam 15 mg oral tablet)(meloxicam) 15 mg 1 TAB By Mouth DAILY Comment(s): hold one week prior. STOP 7 DAYS PRE-OP metFORMIN(metFORMIN 500 mg oral tablet)(metFORMIN) 500 mg 1 TAB By Mouth EVERY MORNING Comment(s): DO NOT TAKE DOS montelukast(montelukast 10 mg oral tablet)(montelukast) 10 mg 1 TAB By Mouth DAILY Comment(s): TAKE DOS multivitamin 1 TAB By Mouth DAILY Comment(s): hold one week prior. STOP 7 DAYS PRE-OP multivitamin(Vitamin B Complex 100)(multivitamin) 1 TAB By Mouth DAILY Comment(s): hold dos. HOLD DOS ondansetron(Zofran 4 mg oral tablet)(ondansetron) 4 mg 1 TAB By Mouth Every 8 hours PRN as needed for nausea/vomiting pantoprazole(Protonix 40 mg oral delayed release tablet)(pantoprazole) 40 mg 1 TAB By Mouth 2 TIMES A DAY Comment(s): TAKE DOS propranolol(propranolol 40 mg oral tablet)(propranolol) 40 mg 1 TAB By Mouth 2 TIMES A DAY Comment(s): TAKE DOS traZODone 100 mg- 3 tabs By Mouth AT BEDTIME POD 2 Ancef 3gm x 1 Discontinue epidural catheter Introduce p.o. p.r.n. pain medications Lovenox 4 hr after epidural catheter removed Discharge patient home this afternoon Patient seen and evaluated with Dr. Collins The patient was personally seen and evaluated. I agree with evaluation and documentation of nurse practitioner Charles as noted above. The right side of the patient's wound had some erythema on examination this morning. It does not appear to be a cellulitis. An ultrasound of the wound was performed to be certain there was no seroma or hematoma formation. The ultrasound was negative. I ordered Ancef. The wound has improved on its own prior to the an 7th being given. The patient is going to receive the Ancef. I am not totally certain what the redness represents. I am going to send her home on Keflex to be certain she does not developed a wound infection in the future. Discharge instructions and a return appointment are given. 07/20/2018 [facility] History and Physicals Results Value Date Source History and Physical Chief Com plaint Bilateral ovarian masses, family history of breast cancer History of Present Illness The patient is a 48-year-old white female 4 para 3 seen in consultation at the request of Dr. Edouard Lopez with bilateral ovarian masses that are increasing in size. This patient was found to have bilateral ovarian masses after an emergency room visit for gastritis. She had a CT scan as well as an ultrasound performed on March 02, 2018. On the CT scan her left ovarian cyst was 4.8 x 6.3 cm. The right ovarian cyst was 4 cm x 4.6 cm. The ultrasound from March 02 showed a left ovarian cyst measuring 4.9 x 5.9 x 4.2 cm and a right ovarian cyst which was more complex measuring 4.8 x 4.9 x 5.0 cm. The studies were compared to a prior CT scan from October 28, 2014. At that time the ovarian masses were not present. The therefore had developed in the interim. The patient was followed for 3 months. On June 16, 2018 she had a repeat ultrasound. Both ovarian masses had increased in size. The right ovarian mass which again was more complex was 6.9 x 6.0 x 5.4 cm in the left ovarian mass was 6.1 x 5 x 4.0 cm. The patient is referred for consultation regarding definitive management. This patient has a family history of breast cancer. Both her mother and her paternal aunt developed breast cancer at age 40. She has 2 great great maternal aunts who had breast cancer. There is no colon or ovarian cancer in the family. There has been no genetic testing performed. She has some medical issues. She had bronchitis during the summer. She became short of breath at that time. 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 She is being worked up for this at this time. She has had pulmonary function testing and is scheduled for an echocardiogram. We will attempt to obtain those records. The patient complains of low back pain and crampy abdominal pain. She has been on the Depo-Provera shot for 89 years. She has no menstrual cycles at all and has not had menstrual cycles for many years. She has recently gained 10 lb. Today, the patient is having no abnormal vaginal bleeding or discharge. She is having normal bowel and bladder function. She has no abdominal or pelvic pain. Her appetite is good and her weight is stable. She is having no nausea or vomiting. She has no abdominal bloating or early satiety. She did have a CA 125 that was negative at 10. Review of Systems REVIEW OF SYSTEMS: POSITIVE if bolded and underlined, otherwise negative GENERAL: fevers, chills, fatigue, malaise. HEENT: change in vision, earache, sore throat, sinusitis, mouth sores, frequent nose bleeds, ringing in her ears. NECK: pain or stiffness, swollen glands, headache. NEUROLOGIC: headache, seizures, numbness, tingling , weakness , balance problems. speech difficulty. hearing loss. RESPIRATORY: shortness of breath at rest, shortness of breath with activity, cough or wheeze, sleep apnea, sputum production. CARDIOVASCULAR: chest pain or pressure, palpitations, arrhythmias, fainting, dizzy spells, passing out, swelling of legs. GENITOURINARY: urinary frequency, urgency, hesitancy, dysuria, blood in urine, incontinence, vaginal discharge, abnormal bleeding, vulvar pain, pain with intercourse. HEMATOLOGICAL: anemia, easy bruising, bleeding. swollen glands. DERMATOLOGIC: rash, itching, lesions, open sores , wounds, skin nodules, lesions. IMMUNOLOGIC: asthma, contact dermatitis. food allergies. allergies to bee stings, severe allergies causing difficulty breathing. MUSCULOSKELETAL: joint or muscle pain, back pain, recent trauma, muscle weakness, arthritis. joint swelling. bone pain. PSYCHIATRIC: depression, loss of interest in normal activity, change in sleep pattern, increased anxiety. lack of energy. change in personality. GASTROINTESTINAL: abdominal mass, abdominal pain, nausea, vomiting, diarrhea, constipation, melena, bright red blood per rectum, acid reflux, heartburn, bloating, early satiety, cramping, food intolerance, anorexia, loss of appetite, change in bowel habits ENDOCRINE: polyuria, polydipsia, heat or cold intolerance. recent change in weight. hot flashes, night sweats. Physical Exam Vitals and Measurements T: 99.0 F HR: 72 BP: 132/83 WT: 139.5 kg PHYSICAL EXAMINATION: GENERAL: Alert, cooperative, no distress, appears stated age, obese NEURO: Alert, Oriented, No deficits_ HEENT is negative. Head is normocephalic. Pupils are equal. NECK: supple with normal range of motion. THYROID: No enlargement, tenderness, palpable nodules ENDOCRINE: There is no thyromegaly RESPIRATORY: Lungs clear, normal breathe sounds, symmetric; respirations unlabored BACK: symmetric, no CVA tenderness CARDIAC:Normal rate and rhythm, there is a very slight systolic ejection murmur at the right sternal border. _ . Pulses normal LYMPHATIC: There is no supraclavicular adenopathy. There is no inguinal adenopathy. ABDOMEN: The abdomen is soft and nontender. There is no hepatosplenomegaly. There are no masses. There is no evidence of ascites. There are no hernias. There is a significant pannus SKIN:The skin is warm, dry, and intact. There are no skin lesions. There are no rashes. EXTREMITIES: The extremities are without edema. There are no stasis changes. There is no cyanosis. PSYCH: Mood and affect are appropriate. PELVIC EXAMINATION: EGBUS is negative. No vulvar lesions. No swelling, No pain. VAGINA: No lesions. No significant discharge. The vaginal apex is benign. CERVIX: The cervix is grossly within normal limits. UTERUS: . The uterus is difficult to palpate due to the patient's body habitus. ADNEXAE: I cannot palpate the adnexal masses mainly secondary to the patient's body habitus. BIMANUAL: On bimanual exam there are no pelvic or abdominal masses. There is no nodularity in the cul-de-sac. No qualifying data available. Nutritional Screen Home Diet: Regular Feeding Ability: Complete independence Eating Difficulties: None Supplements: PO Nutritional Appetite: Fair (50-75%) Pain Assessment Acute Pain Score: 3 Acute Pain Goal: 2 Score for Highest Pain Experienced: 4 Score for Lowest Pain Experienced: 2 Oncology Distress ONC Distress Thermometer: 1 Cancer Fatigue Scores Cancer Fatigue Scale: 1 ECOG Performance Scale There is no EGOG Performance Scale documented at this time. Assessment/Plan Visit Diagnoses Family history of breast cancer Z80.3 Ordered: polyethylene glycol 3350 with electrolytes, 240 mL, PO, Q10MIN (Every 10 minutes), # 1 EA, 0 Refill(s), [facility] Referral to Genetics Referral to Surgical Mass of right ovary N83.9 Ordered: polyethylene glycol 3350 with electrolytes, 240 mL, PO, Q10MIN (Every 10 minutes), # 1 EA, 0 Refill(s), [facility] Referral to Genetics Referral to Surgical Orders: Type And Screen YZ CT Outside Films YZ CT Outside Films YZ US Outside Films Impression: 1. Bilateral ovarian masses which are new since 2015 and increasing in size. 2. Family history of breast cancer. 3. New onset of shortness of breath. Plan: 1.I have discussed the ovarian masses with the patient and her family. These masses are definitely new since 2014 and they are documented to be increasing in size. Especially in view of her family history of breast cancer these masses should be removed. 2. Prior to any surgical intervention this patient should finish her workup for the shortness of breath. We will obtain a copy of the pulmonary function tests. We will schedule the surgical procedure for a time after the echocardiogram has been performed. 3. The patient's family history of breast cancer was discussed. She has several relatives that have had breast cancer. I have put in a consult for genetic counseling. I feel she should be genetically tested. 4. Have recommended removal of the uterus tubes and ovaries. I would also perform an omentectomy because of her family history. If malignancy is found a tumor debulking and staging procedure will be performed. She understands that if malignancy is found she will likely require chemotherapy thereafter. This will be performed through a midline incision. Modalities of therapy including laparoscopic versus open approaches were discussed. Risks and possible complications including bleeding infection and damage to surrounding structures was discussed. She understands and accepts these risks. We will use DVT and antibiotic prophylaxis. She will be typed and screened. We anticipate a 2 night hospital stay. She will have lifting and activity restrictions for 6 weeks postoperatively. The patient understands that are there is a risk to anesthesia and that she does have pulmonary abnormalities which may influence and her recovery. The surgical procedure is scheduled. CC: Dr. Edouard Lopez Problem List/Past Medical History Ongoing Depression Family history of breast cancer Hypertension Mass of right ovary Historical No qualifying data Procedure/Surgical History appendectomy, cholecystectomy, tonsillectomy. Medications busPIRone 15 mg oral tablet, 15 mg, 1 TAB, PO, BID (2 times a day) calcium (as carbonate) 500 mg oral tablet, chewable, 500 mg, 1 TAB, Chewed, Daily cetirizine 10 mg oral capsule, 10 mg, 1 CAP, PO, Daily escitalopram 20 mg oral tablet, 20 mg, 1 TAB, PO, Daily fluticasone 27.5 mcg/inh nasal spray, 1 [place], Nasal, Daily, PRN meloxicam 15 mg oral tablet, 15 mg, 1 TAB, PO, Daily metFORMIN 500 mg oral tablet, 500 mg, 1 TAB, PO, QAM (Every morning) montelukast 10 mg oral tablet, 10 mg, 1 TAB, PO, Daily multivitamin, 1 TAB, PO, Daily NuLYTELY with Flavor Packs oral powder for reconstitution, 240 mL, PO, Q10MIN (Every 10 minutes) propranolol 40 mg oral tablet, 40 mg, 1 TAB, PO, BID (2 times a day) Protonix 40 mg oral delayed release tablet, 40 mg, 1 TAB, PO, BID (2 times a day) Symbicort 160 mcg-4.5 mcg/inh, 2 Puff, Inhalation, BID (2 times a day) traZODone, PO, QHS (At bedtime) Vitamin B Complex 100, 1 TAB, PO, Daily Vitamin D3, 1 TAB, PO, Daily Allergies ibuprofen naproxen Social History Alcohol Use: Current. Home/Environment Evidence of Abuse: No. Evidence of Emotional/Behavioral Disorder: No. Nutrition/Health Caffeine Use: Current. Substance Abuse Recreational Drug Use: None. Tobacco Use: Never smoked. Smoking Cessation/Counseling During Hospital Stay: No. Tobacco cessation information offered: Patient refuses information. Family History Breast cancer: Mother and Aunt/Uncle. Lung cancer...: Mother. 06/23/2018 [facility] Vital Signs Vital Sign Value Date Comments Source Inet NIBP Systolic 159 mm[Hg] 08/02/2018 [facility] Inet NIBP Diastolic 136 mm[Hg] 08/02/2018 [facility] Temperature 99.0 [degF] 08/02/2018 [facility] Heart Rate 76 bpm 08/02/2018 [facility] [place] [place] Mean Arterial Pressure 144 mm[ Hg] 08/02/2018 [facility] [place] Inet NIBP Systolic 130 mm[Hg] 07/20/[facility] [place] [facility]IB[facility] Diastolic 82 mm[Hg] 07/20/2018 [facility] [place] Heart Rate 66 bpm 07[facility]20/2018 [facility] [place] Pulse Equipment SPO2 (07/20/18 3:07 PM) 07/20/2018 [facility] [place] Temperature 98.3 [degF] 07/20/2018 [facility] [place] Temp Method Oral (07/20/18 3:0 7 PM) 07/20/2018 [facility] [place] NIBP MAP 118 mm[Hg] 07/20/2018 [facility] [place] Respiratory Rate 17 br/min 07/20/2018 [facility] [place] Vital Signs Status/Type Routin e Assessment (07/20/18 3:00 PM) 07/20/2018 [facility] BP Location Arm, left ( 8 4:28 PM) 07/19/2018 [facility] [place] NIBP MAP Calc 78 07/18/2018 [facility] Heart Rhythm Interpretation Si nus/atrial rhythm (07/18/18 1:35 PM) 07/18/2018 [facility] [place] BP Cuff Size Large (07/18/18 1 :35 PM) 07/18/2018 [facility] [place] NIBP Alarms set and on Yes ( 1:35 PM) 07/18/2018 [facility] [place] Temperature 99.0 [degF] 06/23/2018 [facility] [place] [place] Inet NIBP Systolic 132 mm[Hg] 06/23/2018 [facility] [place] Inet NIBP Diastolic 83 mm[Hg] 06/23/2018 [facility] [place] Heart Rate 72 bpm 06/23/2018 [facility] [place] Mean Arterial Pressure 99 mm[H g] 06/23/2018 [facility] Encounters Location Location Details Encounter Type Encounter Number Reason For Visit Attending Provider ADM Date DC Date Status Source [facility] Office [id number] UNA COLLINS MD 08/02/20 18 08/03/2018 [facility] Demi on 006C 006C U [id number] YOJANA COLLINS MD 08/02/2018 [facility]/02/2018 [facility] In[facility] [id number] UNA COLLINS MD 07/18/20 18 07/20[place] [facility] [place] [id number] UNA COLLINS MD 06/23/20 18 06/24/2018 [facility] Demi on 006C 006C U [id number] YOJANA COLLINS MD 06/23/2018 06/23/2018 Active [facility] Procedures Procedure Code Date Perfomer Comments Source appendectomy [facility] cholecystectomy [facility] tonsillectomy [facility] Plan of Care No Data Provided for This Section Social History Social History Date Source Social History TypeResponse 08/03/2018 [facility] Social History TypeResponse 07/20/2018 [facility] Social History TypeResponse 06/24/2018 [facility] Assessment and Plan No Data Provided for This Section Family History No Data Provided for This Section Advance Directives No Data Provided for This Section Functional Status No Data Provided for This Section
--- OUTSIDE RECORDS SUMMARY | 2020-05-02 17:57 | XMS REPORT ---
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 Name Role Phone ORENDER, NANCY S Unavailable ORENDER DO, NANCY S Unavailable Unavailable ORENDER, NANCY S Unavailable NIKO MROAN Unavailable Unavailable NIKO MORAN Unavailable Unavailable NIKO MORAN Unavailable Unavailable KATE UMANZOR INSIDE POLISHER Unavailable Unavailable BHAVNA BENITEZ INSIDE POLISHER Unavailable Unavailable MILAGROS CASTILLO INSIDE POLISHER Unavailable Unavailable DINA GREEN MD Unavailable Unavailable MCKINLEY CHAIREZ, PRABHJOT Frausto Unavailable Unavailable ORENDER DO, NANCY S Unavailable Unavailable JOHN STRONG INSIDE POLISHER Unavailable Unavailable LEONORA CHAIREZ, SHAQUILLE Hahn Unavailable Unavailable JERALD CHAIREZ, PACO Hdz Unavailable Unavailable JESSICA CHAIREZ, RANI Dowd Unavailable Unavailable NIKO MORAN PCP PCP, OUTSIDE Unavailable Unavailable Unavailable Unavailable Unavailable Unavailable Unavailable Unavailable Unavailable Unavailable Unavailable Unavailable Allergies Allergy Reported Allergen(s) Allergy Type Date of Reaction(s) Care Facility Classificati Onset Provider on NSAIDs Ibuprofen ; Translations: Drug Allergy 09-19-2018 GI U PSETKATE [facility] Via [Ibuprofen] Ibuprofen Ling ([address] [place] [address] - [facility]) [place] ([id number]) Encounters Encounter Date Encounter Type Encounter Diagnosis Care Provider Facility Start: Patient encounter [facility] strict #1 04-18-2020 [facility] End: 04-18-2020 Start: Patient encounter [facility] strict #1 02-15-2020 [facility] End: 02-15-2020 Start: Patient encounter [facility] strict #1 02-15-2020 procedure [facility] End: 02-15-2020 Start: Patient encounter [facility] Di strict #1 12-07-2019 procedure of [facility] End: 12-07-2019 Start: Patient encounter [facility] Di strict #1 12-07-2019 procedure of [facility] End: 12-07-2019 Start: Patient encounter OUTSIDE [facility] ealt 10-06-2019 procedure [facility] ([id number]) Start: Admission to same day NIKO JUDDENS Khadarteresa on Via Ling 08-09-2019 surgery center Work Phone: [place] [phone] End: 08-09-2019 Start: Patient encounter RANI LOPEZ MD [facility] Vi a Ling 08-09-2019 procedure [facility] End: 08-09-2019 Start: Patient encounter NIKO Bauman V ia 08-02-2019 procedure Work Phone: [place] [phone] End: 08-02-2019 Start: Patient encounter RANI LOPEZ MD [facility] Via Ling 08-02-2019 procedure [facility] ([id number]) End: 08-02-2019 Start: Patient encounter [facility] Di strict #1 07-12-2019 procedure of [facility] ([id number]) End: 07-13-2019 Start: Patient encounter [facility] Di strict #1 07-12-2019 procedure of [facility] ([id number]) End: 07-13-2019 Start: Patient encounter RANI LOPEZ MD [facility] Via Ling 04-05-2019 [facility] ([id number]) End: 04-05-2019 Start: Patient encounter RANI LOPEZ MD [facility] Vi a Ling 04-05-2019 procedure [facility] End: 04-05-2019 Start: Patient encounter RANI LOPEZ MD [facility] Via Ling 03-30-2019 procedure [facility] ([id number]) End: 03-30-2019 Start: Patient encounter RANI LOPEZ MD [facility] Via Ling 03-30-2019 procedure [facility] ([id number]) End: 03-30-2019 Start: Patient encounter [facility] Di strict #1 02-08-2019 procedure of [facility] ([id number]) End: 02-09-2019 Start: Patient encounter [facility] Di strict #1 02-07-2019 procedure of [facility] ([id number]) End: 02-08-2019 Start: Patient encounter [facility] strict #1 12-15-2018 procedure of [facility] ([id number]) End: 12-16-2018 Start: Patient encounter [facility] strict #1 12-15-2018 procedure of [facility] ([id number]) End: 12-16-2018 Start: Admission to same day ROBELHERMINIA Manzanares on Via Ling 09-21-2018 surgery center Work Phone: [facility] ([phone] End: 09-21-2018 Start: Patient encounter DINA GREEN MD Not Availa ble ([id number]) 09-21-2018 procedure End: 09-21-2018 Start: Patient encounter DINA GREEN MD VC Via [facility] 09-21-2018 procedure [facility] End: 09-21-2018 Start: Patient encounter DINA GREEN VC Via [facility] is 09-19-2018 procedure Work Phone: [facility] ([phone]) End: 09-19-2018 Start: Patient encounter DINA GREEN MD Not Avail[facility] ble ([id number]) 09-14-2018 procedure Start: Patient encounter 07-05-2018 procedure Start: Patient encounter MILAGROS CASTILLO VC Via C tatoi 07-05-2018 procedure [facility] ([id number]) Start: Patient encounter NANCY FRANCENDER DO VC Via 05-23-2018 procedure [facility] ([id number]) Start: Patient encounter NANCY FRANCENDER DO VC Via 05-23-2018 procedure [facility] ([id number]) Start: Patient encounter NANCY ORENDER DO [facility] Via Ling 05-12-2018 procedure [facility] ([id number]) Start: Patient encounter NANCY BELLER VC V ia Ling 05-12-2018 procedure DO [facility] Start: Patient encounter 03-02-2018 procedure Start: Emergency department SHAQUILLE LEA VC Via Ling 03-02-2018 patient visit [facility] End: 03-02-2018 Start: Emergency department 11-03-2017 patient visit End: 11-03-2017 Start: Patient encounter 11-03-2017 procedure Start: Emergency department PRABHJOT SEN MD [facility] Via Ling 11-03-2017 patient visit [facility] ([id number]) End: 11-03-2017 Start: Patient encounter 11-02-2017 procedure Start: Patient encounter BHAVNA BENITEZ VC Via C hristi 11-02-2017 procedure [facility] ([id number]) Start: Patient encounter 01-10-2016 procedure Start: [facility] Via Ling 01-10-2016 procedure [facility] Start: Emergency department KATE UMANZOR INSIDE POLISHER [facility] Via Ling 12-22-2015 patient visit [facility] End: 12-22-2015 Start: Emergency department PRABHJOT SEN MD [facility] Via Ling 12-20-2015 patient visit [facility] ([id number]) End: 12-20-2015 Start: Emergency department KATE UMANZOR [facility] Via Ling 12-04-2015 patient visit [facility] ([id number]) End: 12-04-2015 Start: Evaluation and NANCY DELGADO DO [facility] Via Ling 11-03-2014 management of [facility] inpatient ([id number]) End: 11-05-2014 Start: Patient encounter 06-09-2013 procedure EXAM PRE-OPERATIVE Pre-operative PACO MARQUES MD [facility] Via [facility] examination, [facility] unspecified ([id number]) Encounter for other DINA GREEN MD Not Available ([phone]) preprocedural examination Medical Equipment The data below is from unstructured sourcesNo Medical Equipment Information availableNo Medical Equipment Information availableNo Medical Equipment Information available Goals Date Patient Goal Desired Activity/St ate Immunizations Immunizatio Immunization Notes Care Provider Facility n Date 08-09-2019 NIKO MORAN Stark Via [employer] Work Phone: [facility] ([phone]) 08-02-2019 NIKO MORAN Stark Via [employer] Work Phone: [facility] ([phone]) Interventions No Information Medications Medication Drug Dates Sig Sig (Original) Class(es) (Normalized) Albuterol beta2-Adre take 1 puff(s) Albuterol Sulfa te Active 2 RESPIRATORY (2 sources) nergic by inhalation (INHALATION) Ev deondre 4HRS as needed for Agonist every four Shortness Of Breath 1 PUFF = 90 MCG hours as needed busPIRone hydrochloride Buspirone Hcl Active 15 O RAL Twice A Day 15 mg oral tablet (4 sources) Depoprovera Shot End: Depoprovera Shot Di scontinued NOT (2 sources) 10-30-2014 APPLICABLE October 30, 2014 HAD ONE March lifitegrast 50 mg/ml Lymphocyte Lifitegrast Activ e 1 OPTHALMIC Twice A ophthalmic solution Function-A Day (2 sources) ssociated Antigen-1 Antagonist montelukast 10 mg oral Leukotrien Montelukast Sod ium Active 10 ORAL Daily tablet e Receptor (2 sources) Antagonist Pantoprazole Sodium 20 End: Pantoprazole S odium 20 Mg Tablet.dr, 20 Mg Tablet.dr, 20 Mg Oral 11-05-2014 Mg Oral Twic e A Day Discontinued (2 sources) Pantoprazole Sodium 20 Start: Pantoprazole S odium 20 Mg Tablet.dr, 40 Mg Tablet.dr, 40 Mg Oral 11-05-2014 Mg Oral Twic e A Day 11/05/14 (2 sources) Discontinued End: 09-19-2018 Payers Date Payer Normalized Payer Policy ID [facility] Plan of Treatment Date Care Activity Detail Author Start: Diagnostic endoscopic Diagnostic colonoscopy Stark [facility] 09-21-2018 examination on colon [facility] ([id number]) Methicillin resistant Stark [facility] Staphylococcus aureus [facility] ([id number]) [Presence] in Unspecified specimen by Organism specific culture Patient Education Stark Via [facility] ([id number]) Problems Active Problems Problem Problem Date Last Documented Episodic/Chr Provider Classificati Recorded Date onic on Abdominal Diaphragmatic hernia without 05-02-2020 Episodic TAKAAKI KIDO hernia mention of obstruction or gangrene MD ; Translations: [Diaphragmatic (18 hernia without obstruction or sources) gangrene] Allergic Allergy status to other 05-02-2020 Episodic SC CHAEL reactions anti-infective agents status JESSICA CHAIREZ (4 sources) Anxiety Anxiety disorder, unspecified ; 05-02-2020 Chronic disorders Translations: [Anxiety stat e, (18 sources) unspecified] Asthma Unspecified asthma, uncomplicated 05-02-2020 Chron ic RANI LOPEZ MD (5 sources) Biliary Calculus of gallbladder without Epis odic tract mention of cholecystitis, w ithout disease mention of obstruction (9 sources) Cancer of Personal history of malignant 05-02-2020 Episodic TAKAAKI KIDO breast neoplasm of breast MD (6 sources) Chronic Unspecified chronic bronchitis ; Chronic NIKO obstructive Translations: [UNSPECIFIED CHRONIC MORAN pulmonary BRONCHITIS ] disease and bronchiectas is (4 sources) Chronic Bronchitis, not specified as acute 05-02-2020 Epis odic NANCY obstructive or chronic ORENDER DO pulmonary disease and bronchiectas is (8 sources) Diabetes Type 2 diabetes mellitus without 05-02-2020 Chronic mellitus complications without complication (21 sources) Disorders of Pure hypercholesterolemia, 05-02-2020 Chronic TAKAAKI KIDO lipid unspecified ; Translations: metabolism [Hyperlipidemia, unspecifie d] (20 sources) Diverticulos Diverticulosis of large intestine 05-02-2020 Keno Dealer leyla TAKSAMIRKI KIDO is and without perforation or abscess MD diverticulit without bleeding is (6 sources) Esophageal Reflux esophagitis ; Translations: 05-02-2020 Chronic disorders [Esophageal reflux] (22 sources) Essential Unspecified essential hypertension 05-02-2020 Chronic hypertension ; Translations: [Essential (24 sources) (primary) hypertension] Fluid and Hypopotassemia ; Translations: Episo dic electrolyte [Dehydration] disorders (15 sources) Gastroduoden Peptic ulcer, site unspecified, 05-02-2020 Chroni c DINA HANO al ulcer unspecified as acute or chronic, (except without hemorrhage or perfo ration hemorrhage) (6 sources) Genitourinar Personal history of urinary (tract) 05-02-2020 Ep isodic PRABHJOT y symptoms infections MCKINLEY CHAIREZ and ill-defined conditions (18 sources) Joint Other meniscus derangements, 05-02-2020 Chronic RANI disorders posterior horn of medial meniscus, JESSICA CHAIREZ and left knee ; Translations: dislocations [Chondromalacia patellae, l eft ; knee] trauma-relat ed (10 sources) Joint Other tear of medial meniscus, 05-02-2020 Episodic RANI disorders current injury, right knee, initial JESSICA CHAIREZ and encounter dislocations ; trauma-relat ed (4 sources) Mood Major depressive disorder, single 05-02-2020 Chronic disorders episode, unspecified ; (21 sources) Translations: [Depressive d isorder, not elsewhere classified] Osteoarthrit Unspecified osteoarthritis, Chronic NIKO is unspecified site ; Translations: [facility] (6 sources) [OSTEOARTHROSIS, UNSPECIFIE D WHETHER GENERALIZED OR LOCALIZED, INVOLVING UNSPECIFIED SITE] Other senior care (current) use of oral 05-02-2020 Episodic aftercare hypoglycemic drugs (22 sources) 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 05-02-2020 Episodic PETER UMANZOR aftercare therapy (18 sources) Other and Polyp of colon 05-02-2020 Episodic TAKAAKI KID O unspecified MD benign neoplasm (6 sources) Other bone Chondromalacia, right knee 05-02-2020 Episodic RANI disease and JESSICA CHAIREZ musculoskele monse deformities (4 sources) Other Unspecified disorder of kidney and E pisodic diseases of ureter kidney and ureters (3 sources) Other Personal history of other diseases 05-02-2020 Epis odic PRABHJOT gastrointest of the digestive system MCKINLEY CHAIREZ inal disorders (18 sources) Other liver Other specified disorders of liver C hronic diseases (3 sources) Other lower Cough Episodic BHAVNA respiratory ELI disease (12 sources) Other lower Dyspnea, unspecified Episodic LING NE respiratory ANNA disease (7 sources) Ovarian cyst Other ovarian cyst, left side ; 05-02-2020 Episod ic SHAQUILLE (20 sources) Translations: [Other ovarian cyst, BRUEGGEMANN right side] Residual Acquired absence of other organs ; 05-02-2020 Epis odic PRABHJOT codes; Translations: [ACQUIRED ABSENCE OF MCKINLEY CHAIREZ unclassified OTHER SPECIFIED PART] (18 sources) Residual Sleep disorder, unspecified Episodic MILAGROS codes; ANNA unclassified (7 sources) Residual Family history of malignant 05-02-2020 Episodic TAKAAKI KIDO codes; neoplasm of trachea, bronchus and M D unclassified lung (10 sources) Residual Acquired absence of other specified 05-02-2020 Epi sodic PRABHJOT codes; parts of digestive tract MCKINLEY M D unclassified (7 sources) Residual Family history of malignant 05-02-2020 Episodic PRABHJOT codes; neoplasm of breast MCKINLEY CHAIREZ unclassified (11 sources) Past or Other Problems Problem Problem Date Last Documented Episodic/Chr Provider Classificati Recorded Date onic on Diabetes Hyperglycemia, unspecified Episodic R ACHEL mellitus MORAN without complication (6 sources) Other lower Other forms of dyspnea Episodic JACQU CASSIDY respiratory ORENDER DO disease (6 sources) Other lower Cough Episodic NIKO respiratory MORAN disease (2 sources) Other lower Shortness of breath Episodic NIKO respiratory MORAN disease (2 sources) Other lower Shortness of breath Episodic NIKO respiratory MORAN disease (2 sources) Other Other abnormal blood chemistry Episodic NIKO screening MORAN for suspected conditions (not mental disorders or infectious disease) (6 sources) Other upper Acute sinusitis, unspecified ; Episodic NIKO respiratory Translations: [ACUTE SINUSITIS, TAMARA VENS infections UNSPECIFIED ] (6 sources) Procedures Date Procedure Procedure Detail Performing Cl inician Laparoscopic cholecystectomy Results Test Name Value Interpreta Reference Facilit Date tion Range y Time laboratory on 2020-05-02 Albumin [Mass/Vol] 4.5 g/dL Negative 3.2-4.5 PENDING 04-05 0-2 g[facility] [address] [place] [address] 11:10-0 ([id number]) 400 ALP [Catalytic 85 U/L Negative 40-136 U/L PENDING activity/Vol] [facility] [address] [place] [address] 11:10-0 ([id number]) 400 ALT [Catalytic 46 U/L Negative 0-55 U/L PENDING activity/Vol] [facility] [address] [place] [address] 11:10-0 ([id number]) 400 Anion gap 13 mmol/L Negative 5-14 PENDING [Moles/Vol] mmol/L [facility] [address] [place] [address] 11:10-0 ([id number]) 400 aPTT Coag (PPP) 31 s Negative 24-35 s PENDING [Time] [facility] [address] [place] [address] 11:10-0 ([id number]) 400 AST [Catalytic 23 U/L Negative 5-34 U/L PENDING activity/Vol] [facility] [address] [place] [address] 11:10-0 ([id number]) 400 Basophils (Bld) 0.1 10*3/uL Negative 0.0-0.1 PENDING 05-02 [#/Vol] 10*3/uL [facility] [address] [place] [address] 11:10-0 ([id number]) 400 Basophils/100 WBC 1 % Negative 0-10 % PENDING 05-02 (Bld) [facility] [address] [place] [address] 11:10-0 ([id number]) 400 Bilirubin [Mass/Vol] 0.5 mg/dL Negative 0.1-1.0 PENDING mg/dL [facility] 020 [facility] 11:10-0 ([id number]) 400 Calcium [Mass/Vol] 9.5 mg/dL Negative 8.5-10.1 PENDING 07-3 0-2 mg/dL [facility] 020 [facility] 11:10-0 ([id number]) 400 Calcium [Mass/Vol] 9.1 mg/dL Negative 8.5-10.1 PENDING 07-3 0-2 mg/dL [facility] 020 [facility] 11:10-0 ([id number]) 400 Chloride [Moles/Vol] 103 mmol/L Negative 98-107 PENDING 0 7-30-2 mmol/L [facility] 020 [facility] 11:10-0 ([id number]) 400 CO2 [Moles/Vol] 24 mmol/L Negative 21-32 PENDING -30-2 mmol/L [facility] 020 [facility] 11:10-0 ([id number]) 400 Creatinine 0.75 mg/dL Negative 0.60-1.30 PENDING 30-2 [Mass/Vol] mg/dL [facility] 020 [facility] 11:10-0 ([id number]) 400 Creatinine and > Invalid PENDING 05-02-2 Glomerular Interpreta [facility] 020 filtration tion Code [facility] 11:10-0 rate.predicted panel ([id number]) 400 - Serum, Plasma or Blood Eosinophils (Bld) 0.1 10*3/uL Negative 0.0-0.3 PENDING 2 [#/Vol] 10*3/uL [facility] 020 [facility] 11:10-0 ([id number]) 400 Eosinophils/100 WBC 1 % Negative 0-10 % PENDING 2 (Bld) [facility] 020 [facility] 11:10-0 ([id number]) 400 Erythrocyte 14.2 % Negative 10.0-14.5 PENDING 05-02-2 distribution width % [facility] 020 (RBC) [Ratio] [facility] 11:10-0 ([id number]) 400 Fibrin D-dimer FEU 0.34 Negative 0.00-0.49 PENDING -3 0-2 (PPP) [Mass/Vol] ug/mL [facility] 020 [facility] 11:10-0 ([id number]) 400 Glucose [Mass/Vol] 108 mg/dL High 70-105 PENDING 07-3 0-2 mg/dL [facility] 11:10-0 ([id number]) 400 Hematocrit (Bld) 43 % Negative 35-52 % PENDING [Volume fraction] [facility] 11:10-0 ([id number]) 400 Hemoglobin (Bld) 14.3 g/dL Negative 11.5-16.0 PENDING 2 [Mass/Vol] g/dL [address] 11:10-0 ([id number]) 400 INR Coag (Platelet 0.9 Negative 0.8-1.4 PENDING 04-05 0-2 poor plasma or [facility] 020 blood) [Relative [facility] 11:10-0 time] ([id number]) 400 Lipase [Catalytic 17 U/L Negative 8-78 U/L PENDING 05-02 activity/Vol] [facility] [address] [place] [address] 11:10-0 ([id number]) 400 Lymphocytes (Bld) 2.7 10*3/uL Negative 1.0-4.0 PENDING [#/Vol] 10*[address] 11:10-0 ([id number]) 400 Lymphocytes/100 WBC 31 % Negative 12-44 % PENDING (Bld) [address] 11:10-0 ([id number]) 400 Magnesium [Mass/Vol] 1.9 mg/dL Negative 1.6-2.4 PENDING -2 mg/dL [facility] [address] [place] [address] 11:10-0 ([id number]) 400 MCH (RBC) [Entitic 28 pg Negative 25-34 pg PENDING - 0-2 mass] [address] 11:10-0 ([id number]) 400 MCHC (RBC) 33 g/dL Negative 32-36 g/dL PENDING [Mass/Vol] [facility] [address] [place] [address] 11:10-0 ([id number]) 400 MCV (RBC) [Entitic 83 Negative 80-99 PENDING - 0-2 vol] [foz_us] [address] 11:10-0 ([id number]) 400 Monocytes (Bld) 0.7 10*3/uL Negative 0.0-1.0 PENDING 05-02 [#/Vol] 10*3 [facility] 020 [facility] 11:10-0 ([id number]) 400 Monocytes/100 WBC 8 % Negative 0-12 % PENDING 05-02 (Bld) [facility] 020 N [facility] 11:10-0 ([id number]) 400 Myoglobin [Mass/Vol] 37.0 ng/mL Negative 10.0-92.0 PENDING 0 05-02-2 ng/mL [facility] 020 N [facility] 11:10-0 ([id number]) 400 Natriuretic peptide pg/mL Invalid <100.0 PENDING B (Bld) [Mass/Vol] Interpreta [facility] 020 tion Code [facility] 11:10-0 ([id number]) 400 Neutrophils (Bld) 5.2 10*3/uL Negative 1.8-7.8 PENDING [#/Vol] 10*3 [facility] 020 [facility] 11:10-0 ([id number]) 400 Neutrophils/100 WBC 60 % Negative 42-75 % PENDING (Bld) [facility] 020 [facility] 11:10-0 ([id number]) 400 Platelet mean volume 10.7 High 7.4-10.4 PENDING (Bld) [Entitic vol] [foz_us] [facility] 020 [facility] 11:10-0 ([id number]) 400 Platelets (Bld) 303 10*3/uL Negative 130-400 PENDING 05-02 [#/Vol] 10*3/uL [facility] 020 [facility] 11:10-0 ([id number]) 400 Potassium 4.0 mmol/L Negative 3.6-5.0 PENDING [Moles/Vol] mmol/L [facility] 020 [facility] 11:10-0 ([id number]) 400 Protein [Mass/Vol] 7.0 g/dL Negative 6.4-8.2 PENDING -3 0-2 g/dL [facility] 020 [facility] 11:10-0 ([id number]) 400 PT Coag (PPP) [Time] 12.8 s Negative 12.2-14.7 PENDING -2 s [facility] 020 [facility] 11:10-0 ([id number]) 400 RBC (Bld) [#/Vol] 5.19 10*6/uL Negative 4.35-5.85 PENDING 10*6/uL [facility] 020 N [facility] 11:10-0 ([id number]) 400 Sodium [Moles/Vol] 140 mmol/L Negative 135-145 PENDING mmol/L [facility] 020 N [facility] 11:10-0 (18042) 400 Troponin I.cardiac ng/mL Negative <0.028 PENDING 04-05 0-2 [Mass/Vol] ng/mL [facility] 020 N [facility] 11:10-0 ([id number]) 400 Urea nitrogen 15 mg/dL Negative 7-18 mg/dL PENDING [Mass/Vol] [facility] 020 N [facility] 11:10-0 ([id number]) 400 Urea 20 mg/mg Invalid PENDING nitrogen/Creatinine Interpreta [facility] 020 [Mass ratio] tion Code [facility] 11:10-0 ([id number]) 400 WBC (Bld) [#/Vol] 8.7 10*3/uL Negative 4.3-11.0 PENDING 10*3/uL [facility] 020 [facility] 11:10-0 ([id number]) 400 not yet categorized on 2020-02-15 LabCard Specimen submitted to [facility] Testing. Interpreta l 020 tion Code Distric 05:05-0 t #1 of 400 [facility] ([id number]) not yet categorized on 2019-12-07 LabCard Specimen submitted to [facility] Testing. Interpreta l 020 tion Code Distric 09:44-0 t #1 of 500 [facility] ([id number]) glucose glucometer (bldc) [mass/vol] on 2019-08-09 Glucose [Mass/Vol] 119 mg/dL High 70-110 [facility] 11-0 6-[address] 019 Ling 13:15-0 Hospita 500 l ([id number]) not yet categorized on 2019-07-12 LabCard Specimen submitted to [facility] Testing. Interpreta l 019 tion Code Distric 16:45-0 t #1 of 400 [facility] ([id number]) not yet categorized on 2019-02-08 LabCard Specimen submitted to [facility] 02-08-2 Testing. Interpreta l 019 tion Code Distric 11:08-0 t [address] [place] [address] ([id number]) laboratory on 2018-12-15 Albumin BCG dye 4.7 Invalid 3.6-5.1 Hospita 14-2 [Mass/Vol] Interpreta g/dL l 019 tion Code Distric 15:05-0 t [address] [place] [address] ([id number]) ALP [Catalytic 101 U/L Invalid 35-130 U/L Hospita 12-15-2 activity/Vol] Interpreta l 019 tion Code Distric 15:05-0 t [address] [place] [address] () ALT [Catalytic 36 U/L Invalid 6-45 U/L Hospita 12-15-2 activity/Vol] Interpreta l 019 tion Code Distric 15:05-0 t [address] [place] [address] () Anion gap 19 mmol/L High 6-14 Hospita 12-15-2 [Moles/Vol] l 019 Distric 15:05-0 t [address] [place] [address] ([id number]) AST [Catalytic 23 U/L Invalid 2-40 U/L Hospita 12-15-2 activity/Vol] Interpreta l 019 tion Code Distric 15:05-0 t [address] [place] [address] ([id number]) Average glucose 121 mg/dL High 70-110 Hospita 12-15-2 Estimated from mg/dL l 019 glycated hemoglobin Distric 15:05-0 (Bld) [Mass/Vol] [address] [place] [address] ([id number]) Bilirubin [Mass/Vol] 0.3 mg/dL Invalid 0.2-1.2 Hospita -2 Interpreta mg/dL l 019 tion Code Distric 15:05-0 [address] [place] [address] ([id number]) Calcium [Mass/Vol] 10.1 mg/dL Invalid 8.3-10.4 Hospita 14-2 Interpreta mg/dL l 019 tion Code Distric 15:05-0 [address] [place] [address] ([id number]) Chloride [Moles/Vol] 101 mmol/L Invalid 95-114 Hospita 0 3-14-2 Interpreta mmol/L l 019 tion Code Distric 15:05-0 [address] [place] [address] () Cholesterol 261 mg/dL High 100-240 Hospita 03-14-2 [Mass/Vol] mg/dL l 019 Distric 15:05-0 t [address] [place] [address] () Cholesterol in HDL 45 mg/dL Invalid 30-85 Hospita 03-1 4-2 [Mass/Vol] Interpreta mg/dL l 019 tion Code Distric 15:05-0 [address] [place] [address] () Cholesterol in LDL 141 mg/dL High 0-100 Hospita 03-1 4-2 [Mass/Vol] mg/dL l 019 Distric 15:05-0 [address] [place] [address] () Cholesterol in VLDL 75 mg/dL High 0-42 mg/dL Hospita 14-2 [Mass/Vol] l 019 Distric 15:05-0 [address] [place] [address] () Cholesterol.total/Ch 5.8 {ratio} Invalid 3.7-6.7 Hospita 12-15-2 olesterol in HDL Interpreta l 019 [Mass ratio] tion Code Distric 15:05-0 [address] [place] [address] () Creatinine 0.70 mg/dL Invalid 0.50-1.50 Hospita 12-15-2 [Mass/Vol] Interpreta mg/dL l 019 tion Code Distric 15:05-0 [address] [place] [address] () GFR/1.73 sq 88 mL/min/{1.73_m2} Invalid >59 Hospita 0 3-14-2 M.predicted MDRD Interpreta mL/min/1.7 l 019 (S/P/Bld) [Vol tion Code 3m2 Distric 15:05-0 rate/Area] [address] [place] [address] () Globulin (S) 2.7 g/dL Invalid 2.3-3.5 Hospita 12-15-2 [Mass/Vol] Interpreta g/dL l 019 tion Code Distric 15:05-0 [address] [place] [address] () Glucose [Mass/Vol] 82 mg/dL Invalid 70-110 Hospita 03- 4-2 Interpreta mg/dL l 019 tion Code Distric 15:05-0 [address] [place] [address] () HbA1c (Bld) [Mass 5.60 % Invalid 5.40-6.60 Hospita 12-15 -2 fraction] Interpreta % l 019 tion Code Distric 15:05-0 [address] [place] [address] () HCO3 (P) [Moles/Vol] 24 Invalid 22-33 Hospita -2 Interpreta mEq/L l 019 tion Code Distric 15:05-0 [address] [place] [address] () Osmolality Calc 287 Invalid 280-295 Hospita [Osmolality] Interpreta l 019 tion Code Distric 15:05-0 [address] [place] [address] () Potassium 4.6 mmol/L Invalid 3.5-5.3 Hospita 12-15-2 [Moles/Vol] Interpreta mmol/L l 019 tion Code Distric 15:05-0 [address] [place] [address] () Protein [Mass/Vol] 7.4 g/dL Invalid 6.0-8.3 Hospita 03- 4-2 Interpreta g/dL l 019 tion Code Distric 15:05-0 [address] [place] [address] () Sodium [Moles/Vol] 139 mmol/L Invalid 134-148 Hospita -2 Interpreta mmol/L l 019 tion Code Distric 15:05-0 [address] [place] [address] () Triglyceride 375 mg/dL High 35-160 Hospita 12-15-2 [Mass/Vol] mg/dL l 019 Distric 15:05-0 [address] [place] [address] () Urea nitrogen 15 mg/dL Invalid 5-25 mg/dL Hospita 12-15-2 [Mass/Vol] Interpreta l 019 tion Code Distric 15:05-0 [address] [place] [address] () Social History Date Type Detail Facility Start: Tobacco smoking status NHIS Never smoked tobac co [facility] 08-02-2019 ([facility] ([id number]) End: 08-09-2019 Start: Never a Smoker [facility] 08-02-2019 [facility] ([id number]) Start: Denies Use [facility] 12-22-2015 [facility] ([id number]) Start: No [facility] 12-22-2015 [facility] ([id number]) Start: Sex Assigned At Female [facility] 1970 [facility] ([id number]) Vital Signs The data below is from unstructured sources Vital Response Date/Time Temperature (Fahrenheit) 98.6 degree s F (97.6 - 99.5) 12/20/2015 6:15pm Temperature (Calculated Celsius) 37. 08287 degrees C (36.4 - 37.5) 12/20/2015 6:15pm Temperature Source Temporal 12/04/2015 2:25pm Pulse Rate (adult) 74 bpm (60 - 90) 12/20/2015 8:51pm Respiratory Rate 18 bpm (12 - 24) 12/20/2015 8:51pm O2 Sat by Pulse Oximetry 99 % (88 - 100) 12/20/2015 8:51pm Blood Pressure 177/98 mm Hg 12/20/2015 8:51pm Blood Pressure Mean 121 mm Hg 12/20/2015 6:15pm Pain Pain Intensity 6 2015 6:15pm Height (Feet) 5 feet 6:15pm Height (Inches) 6 inches 12/20/2015 6:15pm Height (Calculated Centimeters) 167. 314214 cm 12/20/2015 6:15pm Weight (Pounds) 300 pounds 12/20/2015 6:15pm Weight (Calculated Kilograms) 136.07 7712 kilograms 12/20/2015 6:15pm Calculated BMI 48.42 6:15pm Vital Response Date/Time Temperature (Fahrenheit) 98.6 degree s F (97.6 - 99.5) 12/22/2015 9:21am Temperature (Calculated Celsius) 37. 20968 degrees C (36.4 - 37.5) 12/22/2015 9:21am Temperature Source Temporal 12/22/2015 9:21am Pulse Rate (adult) 68 bpm (60 - 90) 12/22/2015 9:21am Respiratory Rate 28 bpm (12 - 24) 12/22/2015 9:21am O2 Sat by Pulse Oximetry 98 % (88 - 100) 12/22/2015 9:21am Blood Pressure 180/110 mm Hg 12/22/2015 9:21am Blood Pressure Mean 133 mm Hg 12/22/2015 9:21am Pain Pain Intensity 3 2015 11:18am Height (Feet) 5 feet 9:21am Height (Inches) 6 inches 12/22/2015 9:21am Height (Calculated Centimeters) 167. 945604 cm 12/22/2015 9:21am Weight (Pounds) 300 pounds 12/22/2015 9:21am Weight (Calculated Kilograms) 136.07 7712 kilograms 12/22/2015 9:21am Calculated BMI 48.42 9:21am Vital Response Date/Time Temperature (Fahrenheit) 98.6 degree s F (97.6 - 99.5) 12/04/2015 10:45am Temperature (Calculated Celsius) 37. 40787 degrees C (36.4 - 37.5) 12/04/2015 10:45am Temperature Source Temporal 12/04/2015 10:45am Pulse Rate (adult) 63 bpm (60 - 90) 12/04/2015 10:45am Respiratory Rate 20 bpm (12 - 24) 12/04/2015 10:45am O2 Sat by Pulse Oximetry 97 % (88 - 100) 12/04/2015 10:50am Blood Pressure 122/75 mm Hg 12/04/2015 10:45am Blood Pressure Mean 91 mm Hg 12/04/2015 10:45am Pain Pain Intensity 4 2015 10:45am Height (Feet) 5 feet 11/2015 10:45am Height (Inches) 6 inches 12/04/2015 10:45am Height (Calculated Centimeters) 167. 989558 cm 12/04/2015 10:45am Weight (Pounds) 290 pounds 12/04/2015 10:45am Weight (Calculated Kilograms) 131.54 1789 kilograms 12/04/2015 10:45am Calculated BMI 46.80 11/2015 10:45am Vital Response Date/Time Temperature (Fahrenheit) 98.4 degree s F (97.6 - 99.5) Temperature (Calculated Celsius) 36. 34147 degrees C (36.4 - 37.5) Temperature Source Temporal Pulse Rate (adult) 74 bpm (60 - 90) Respiratory Rate 18 bpm (12 - 24) O2 Sat by Pulse Oximetry 97 % (88 - 100) Blood Pressure 138/93 mm Hg Pain Pain Intensity 6 Height (Feet) 5 feet Height (Inches) 6.00 inches Height (Calculated Centimeters) 167. 763769 cm Weight (Pounds) 280 pounds Weight (Calculated Grams) 556587.865 gm Weight (Calculated Kilograms) 127.00 5865 kilograms Calculated BMI 42.18 Vital Response Date/Time Temperature (Fahrenheit) 99.1 degree s F (97.6 - 99.5) Temperature (Calculated Celsius) 37. 35249 degrees C (36.4 - 37.5) Temperature Source Temporal Pulse Rate (adult) 93 bpm (60 - 90) Respiratory Rate 18 bpm (12 - 24) O2 Sat by Pulse Oximetry 97 % (88 - 100) Blood Pressure 161/81 mm Hg Pain Pain Intensity 0 Height (Feet) 5 feet Height (Inches) 6.00 inches Height (Calculated Centimeters) 167. 943689 cm Weight (Pounds) 280 pounds Weight (Calculated Grams) 170822.865 gm Weight (Calculated Kilograms) 127.00 5865 kilograms Calculated BMI 45.19 Vital Response Date/Time Temperature (Fahrenheit) 98.1 degree s F (97.6 - 99.5) Temperature (Calculated Celsius) 36. 40179 degrees C (36.4 - 37.5) Pulse Rate (adult) 86 bpm (60 - 90) Respiratory Rate 16 bpm (12 - 24) O2 Sat by Pulse Oximetry 98 % (88 - 100) Blood Pressure 138/98 mm Hg Pain Pain Intensity 0 Height (Feet) 5 feet Height (Inches) 6 inches Height (Calculated Centimeters) 167. 074191 cm Weight (Pounds) 280 pounds Weight (Calculated Kilograms) 127.00 5865 kilograms Calculated BMI 45.19 Vital Response Date/Time Temperature (Fahrenheit) 96.8 degree s F (97.6 - 99.5) 03/02/2018 10:00am Temperature (Calculated Celsius) 36. 30080 degrees C (36.4 - 37.5) 03/02/2018 10:00am Temperature Source Tympanic 03/02/2018 10:00am Pulse Rate (adult) 70 bpm (60 - 90) 03/02/2018 10:00am Respiratory Rate 18 bpm (12 - 24) 03/02/2018 10:00am O2 Sat by Pulse Oximetry 98 % (88 - 100) 03/02/2018 10:00am Blood Pressure 146/109 mm Hg 03/02/2018 10:00am Blood Pressure Mean 121 mm Hg (65 - 110) 03/02/2018 10:00am Pain Numeric Pain Scale 5-Moderate Pain 03/02/2018 2:59pm Height (Feet) 5 feet 10:00am Height (Inches) 6.00 inches 03/02/2018 10:00am Height (Calculated Centimeters) 167. 045826 cm 03/02/2018 10:00am Height Method Stated 10:00am Weight (Pounds) 300 pounds 03/02/2018 10:00am Weight (Calculated Grams) 629521.71 gm 03/02/2018 10:00am Weight (Calculated Kilograms) 136.07 7712 kilograms 03/02/2018 10:00am Weight Method Stated 10:00am Capillary Refill Capillary Refill Less Than 3 Seconds 03/02/2018 10:00am Height 5 ft 6 in 018 10:00am Weight 300 lb 03/02/2018 10:00am Body Mass Index 48.4 kg/m^2 03/02/2018 10:00am Vital Response Date/Time Temperature (Fahrenheit) 98.6 degree s F (97.6 - 99.5) 09/21/2018 12:15pm Temperature (Calculated Celsius) 37. 60748 degrees C (36.4 - 37.5) 09/21/2018 12:15pm Temperature Source Temporal 09/21/2018 12:15pm Pulse Rate (adult) 81 bpm (60 - 90) 09/21/2018 12:15pm Respiratory Rate 18 bpm (12 - 24) 09/21/2018 12:15pm O2 Sat by Pulse Oximetry 96 % (88 - 100) 09/21/2018 12:15pm Blood Pressure 133/94 mm Hg 09/21/2018 12:15pm Blood Pressure Mean 103 mm Hg (65 - 110) 09/21/2018 9:48am Pain Numeric Pain Scale 0-No Pain 09/21/2018 12:15pm Pain Intensity 0 2017 12:00pm Height (Feet) 5 feet 9:47am Height (Inches) 6.00 inches 09/21/2018 9:47am Height (Calculated Centimeters) 167. 314811 cm 09/21/2018 9:47am Weight (Pounds) 300 pounds 09/21/2018 9:47am Weight (Ounces) 0.0 oz 1 11/22/2017 9:47am Weight (Calculated Grams) 362969.71 gm 09/21/2018 9:47am Weight (Calculated Kilograms) 136.07 7712 kilograms 09/21/2018 9:47am Calculated BMI 48.4 09/03 9:47am Vital Response Date/Time Height (Feet) 5 feet 10:55am Height (Inches) 6.00 inches 09/19/2018 10:55am Height (Calculated Centimeters) 167. 093943 cm 09/19/2018 10:55am Weight (Pounds) 300 pounds 09/19/2018 10:55am Weight (Ounces) 0.0 oz 1 11/20/2017 10:55am Weight (Calculated Grams) 935770.71 gm 09/19/2018 10:55am Weight (Calculated Kilograms) 136.07 7712 kilograms 09/19/2018 10:55am Calculated BMI 48.4 09/03 10:55am Vital Reading Result Col lection Date/Time Vital Reading Result Col lection Date/Time Functional Status Date Assessment Result Facility 08-09-2019 Functional status [facility] Opioid-induced [facility] Sedation Scale (POSS) [facility] ([id number]) and alert Mental Status Date Assessment Result Facility 08-09-2019 Cognitive function [facility] Opioid-induced [facility] Sedation Scale (POSS) [facility] ([id number]) and alert Evaluation note Note Date & Note Facility Type Evaluation No Assessments Information Available [facility] Via note [facility] ([id number]) Advance Directives Directive Response Recor ded Date/Time Advance Directives No 6:15pm Health Care Power of Seo Manager No 12/20/15 6:15pm Organ Donor Yes 03/18/16 6:15pm Resuscitation Status Full Code 12/20/15 6:15pm Directive Response Recor ded Date/Time Advance Directives No 9:21am Health Care Power of Seo Manager No 12/22/15 9:21am Organ Donor Yes 12/22/15 9:21am Resuscitation Status Full Code 12/22/15 9:21am Directive Response Recor ded Date/Time Advance Directives No 10:57am Health Care Power of Seo Manager No 11/03/14 6:19pm Organ Donor Yes 12/04/15 10:57am Resuscitation Status Full Code 12/04/15 10:57am Directive Response Recor ded Date/Time Advance Directives No 6:19pm Health Care Power of Seo Manager No 11/03/14 6:19pm Organ Donor No 11/03/14 6:19pm Resuscitation Status Full Code 11/03/14 6:19pm Directive Response Recor ded Date/Time Advance Directives No 7:59pm Health Care Power of Seo Manager No 10/29/14 7:59pm Organ Donor No 10/29/14 7:59pm Resuscitation Status Full Code 10/29/14 7:59pm Directive Response Recor ded Date/Time Advance Directives No 2:00pm Resuscitation Status Full Code 10/28/14 2:00pm Directive Response Recor ded Date Advance Directives N 05/16 4:12pm Directive Response Recor ded Date Advance Directives N 07/16 4:46pm Directive Response Recor ded Date/Time Advance Directives No 10:09am Health Care Power of Seo Manager No 11/03/17 2:55pm Organ Donor Yes 11/03/17 2:55pm Resuscitation Status Full Code 03/02/18 10:09am Directive Response Recor ded Date/Time Advance Directives No 9:44am Health Care Power of Seo Manager No 09/21/18 9:44am Organ Donor Yes 09/21/18 9:44am Resuscitation Status Full Code 09/21/18 9:44am Directive Response Recor ded Date/Time Advance Directives No 10:56am Health Care Power of Seo Manager No 09/19/18 10:56am Organ Donor Yes 09/19/18 10:56am Resuscitation Status Full Code 09/19/18 10:56am Advance Directive Response Recorded Date/Time Advance Directives No Oc 2018 10:59am Health Care Power of Seo Manager No August 02, 2019 10:59am Organ Donor Yes August 02, 2019 10:59am Resuscitation Status Full Code August 02, 2019 10:59am Advance Directive Response Recorded Date/Time Advance Directives No No [email or web address] 10:20am Health Care Power of Seo Manager No August 09, 2019 10:20am Organ Donor Yes August 09, 2019 10:20am Resuscitation Status Full Code August 09, 2019 10:20am Discharge Instructions No hospital discharge instructions.No hospital discharge instructions.No hospital discharge instructions.No hospital discharge instructions. Patient Instructions Physician Instructions New, Converted, or Re-Newed RX: RX on Chart Follow Up Appt in 8-12 weeks Activity as tolerated High Fiber Diet 25g or more per day Avoid Alcohol, Caffeine, Spicy [place] and Acid foods. Drink 64 fluid oz or more of fluids per day. Symptoms to Report: Fever over 101 degree F, Nausea/Vomiting If any problems/questions: Contact your physician or go to Emergency Room No hospital discharge instructions.No hospital discharge instruction information available.No hospital discharge instruction information available.No hospital discharge instruction information available. Additional Source Comments This clinical document has been generated using [employer] software that has been certified by the Office of the National Coordinator for Health Information Technology (ONC 15.99.04.3023.Diam.[id number]) and the National Committee for [employer] (NCQA, as an eMeasure certified technology). FOR RECORDS PERTAINING TO PATIENTS WHO ARE OR HAVE BEEN ENROLLED IN A CHEMICAL D EPENDENCY/SUBSTANCE ABUSE PROGRAM, SOME INFORMATION MAY BE OMITTED. This clinica l summary was aggregated from multiple sources. Caution should be exercised in using it in the provision of clinical care. This summary normalizes information from multiple sources, and as a consequence, information in this document may ma terially change the coding, format and clinical context of patient data. In hi tion, data may be omitted in some cases. CLINICAL DECISIONS SHOULD BE BASED ON T HE PRIMARY CLINICAL RECORDS. [employer] provides no warranty or guara ntee of the accuracy or completeness of information in this document.The followi ng information is based on time limited clinical information
--- OUTSIDE RECORDS SUMMARY | 2020-05-02 17:58 | XMS REPORT | Continuity of Care Document ---
Author Organization Unknown Address Unknown Phone Unavailable Allergies Active Description Code Type Severity Reaction Onset Reported/Identified Relationship to Patient Clinical Status Yes NO KNOWN DRUG ALLERGIES UNKNOWN NO KNOWN DRUG ALLERG Yes NO KNOWN DRUG ALLERGIES UNKNOWN UNKNOWN Yes No Known Drug Allergies [id number] Drug Allergy Unknown N/A 03/12/2010 Yes ibuprofen [id number] Drug Allergy Mild GI UPSET 08/02/2019 Medications There is no data. Problems Date Dx Coded Attending Type Code Diagnosis Diagnosed By 06/11/2013 SAUL FRASER Ot 276.51 DEHYDRATION 06/11/2013 SAUL FRASER Ot 574.20 CHOLELITHIASIS NOS 06/11/2013 SAUL FRASER Ot 599.0 URIN TRACT INFECTION NOS 06/11/2013 SAUL FRASER Ot 787.02 NAUSEA ALONE 06/11/2013 SAUL FRASER Ot 789.01 ABDOMINAL PAIN, RIGHT UPPER QUADRANT 06/15/2013 GLORIA TEIXEIRA DO S Ot 276.8 HYPOPOTASSEMIA 06/15/2013 KAYLEY TEIXEIRA DOQUELINE S Ot 300.00 ANXIETY STATE NOS 06/15/2013 ROMÁNNDKAYLEY ABARCA DOQUELINE S Ot 311 DEPRESSIVE DISORDER NEC 06/15/2013 KAYLEY TEIXEIRA DOQUELINE S Ot 401.9 HYPERTENSION NOS 06/15/2013 ROMÁNNDKAYLEY ABARCA DOQUELINE S Ot 530.81 ESOPHAGEAL REFLUX 06/15/2013 ROMÁNNDKAYLEY ABARCA DOQUELINE S Ot 536.2 PERSISTENT VOMITING 06/15/2013 ROMÁNNDKAYLEY ABARCA DOQUELINE S Ot 573.8 LIVER DISORDERS NEC 06/15/2013 ROMÁNNDKAYLEY ABARCA DOQUELINE S Ot 574.20 CHOLELITHIASIS NOS 06/15/2013 KAYLEY TEIXEIRA DOQUELINE S Ot 593.9 RENAL URETERAL DIS NOS 10/22/2014 Ot 511.9 10/22/2014 Ot 805.4 10/22/2014 Ot E000.8 10/22/2014 Ot E030 10/22/2014 Ot E819.9 10/22/2014 KARTHIK DANIEL WELLNESS ASSISTANT Ot 574.20 10/22/2014 SHAHBAZKRISSYKARTHIK ARORA WELLNESS ASSISTANT Ot 789.06 10/28/2014 LEONORA CHAIREZ, SHAQUILLE Hahn Ot 599.0 URIN TRACT INFECTION NOS 10/28/2014 LEONORA CHAIREZ, SHAQUILLE Hahn Ot 787.01 NAUSEA WITH VOMITING 10/29/2014 Ot 511.9 10/29/2014 Ot 805.4 10/29/2014 Ot E000.8 10/29/2014 Ot E030 10/29/2014 Ot E819.9 10/29/2014 SHAHBAZKEYKARTHIK MANDEL WELLNESS ASSISTANT Ot 574.20 10/29/2014 SHAHBAZKEYKARTHIK MANDEL WELLNESS ASSISTANT Ot 789.06 10/30/2014 PETER CHAIREZ, DINA Ot 530.11 REFLUX ESOPHAGITIS 10/30/2014 DINA GREEN MD Ot 535.40 OTH SPECIFIED GASTRITIS,W/O MENTION OF H 10/30/2014 DINA GREEN MD Ot 553.3 DIAPHRAGMATIC HERNIA 11/05/2014 NICOLE TEIXEIRA DOLINE S Ot 276.0 HYPEROSMOLALITY 11/05/2014 KAYLEY TEIXEIRA DOQUELINE S Ot 276.8 HYPOPOTASSEMIA 11/05/2014 NICOLE TEIXEIRA DOLINE S Ot 535.50 UNSP GASTRITIS GASTRODUODENITIS W/O ME 11/05/2014 GLORIA TEIXEIRA DO S Ot 536.2 PERSISTENT VOMITING 01/23/2015 JERALD CHAIREZ, PACO Hdz Ot V72.84 08/09/2015 ALISTAIRKARTHIK MANDEL WELLNESS ASSISTANT Ot 574.20 08/09/2015 SHHABAZKRISSYKARTHIK ARORA WELLNESS ASSISTANT Ot 789.06 08/09/2015 JERALD CHAIREZ, PACO Hdz Ot V72.84 12/04/2015 KATE UMANZOR APRN Ot R07.89 OTHER CHEST PAIN 12/20/2015 MCKINLEY CHAIREZ, PRABHJOT Frausto Ot E11.9 TYPE 2 DIABETES MELLITUS WITHOUT COMPLIC 12/20/2015 MCKINLEY CHAIREZ, PRABHJOT Frausto Ot R10.13 EPIGASTRIC PAIN 12/20/2015 MCKINLEY CHAIREZ, PRABHJOT Frausto Ot R11.2 NAUSEA WITH VOMITING, UNSPECIFIED 12/20/2015 VANALINA, KARTHIK M WELLNESS ASSISTANT Ot 574.20 12/20/2015 VANBECELAERE, KARTHIK M WELLNESS ASSISTANT Ot 789.06 12/20/2015 JERALD CHAIREZ, PACO Hzd Ot V72.84 12/22/2015 KATE UMANZOR INDUSTRIAL RELATIONS SPECIALIST Ot E11 .9 TYPE 2 DIABETES MELLITUS WITHOUT COMPLIC 12/22/2015 KATE UMANZOR INDUSTRIAL RELATIONS SPECIALIST Ot K29.70 GASTRITIS, UNSPECIFIED, WITHOUT BLEEDING 12/22/2015 KATE UMANZOR APRN Ot R53.81 OTHER MALAISE 12/22/2015 KATE UMANZOR APRN Ot Z79.899 OTHER ALF (CURRENT) DRUG THERAPY 12/23/2015 MCKINLEY CHAIREZ, PRABHJOT Frausto Ot E11.9 12/23/2015 MCKINLEY CHAIREZ, PRABHJOT Frausto Ot R10.13 12/23/2015 MCKINLEY CHAIREZ, PRABHJOT Frausto Ot R11.2 12/30/2015 MARÍA KARTHIK M WELLNESS ASSISTANT Ot 574.20 12/30/2015 VANBECLATESHARE, KARTHIK M WELLNESS ASSISTANT Ot 789.06 12/30/2015 JERALD CHAIREZ, PACO Hdz Ot V72.84 01/09/2016 KATE UMANZOR APRN Ot E11 .9 01/09/2016 KATE UMANZOR APRN Ot K29.70 01/09/2016 KATE UMANZOR APRN Ot R53.81 01/09/2016 KATE UMANZOR APRN Ot Z79.899 01/09/2016 VANBECELAERE, KARTHIK M WELLNESS ASSISTANT Ot 574.20 01/09/2016 VANBECELAERE, KARTHIK M WELLNESS ASSISTANT Ot 789.06 01/09/2016 JERALD CHAIREZ, PACO Hdz Ot V72.84 01/11/2016 JOHN STRONG APRN Ot K29.70 07/07/2016 VANBECELAERE, KARTHIK M WELLNESS ASSISTANT Ot 574.20 CHOLELITHIASIS NOS 07/07/2016 VANBECELAERE, KARTHIK M WELLNESS ASSISTANT Ot 789.06 ABDOMINAL PAIN, EPIGASTRIC 07/07/2016 JERALD CHAIREZ, PACO Hdz Ot V72.84 EXAM PRE-OPERATIVE NOS 07/07/2016 JOHN STRONG APRN Ot K29.70 GASTRITIS, UNSPECIFIED, WITHOUT BLEEDING 11/03/2017 BHAVNA BENITEZ INDUSTRIAL RELATIONS SPECIALIST Ot R05 COUGH 11/03/2017 BHAVNA BENITEZ INDUSTRIAL RELATIONS SPECIALIST Ot R05 COUGH 11/03/2017 PRABHJOT SEN MD, Ot E11.9 TYPE 2 DIABETES MELLITUS WITHOUT COMPLIC 11/03/2017 PRABHJOT SEN MD, Ot F32.9 MAJOR DEPRESSIVE DISORDER, SINGLE EPISOD 11/03/2017 PRABHJOT SEN MD Ot R10.11 RIGHT UPPER QUADRANT PAIN 11/03/2017 PRABHJOT SEN MD Ot R10.12 LEFT UPPER QUADRANT PAIN 11/03/2017 PRABHJOT SEN MD Ot R11.2 NAUSEA WITH VOMITING, UNSPECIFIED 11/03/2017 PRABHJOT SEN MD, Ot Z79.84 KNOBBER (CURRENT) USE OF ORAL HYPOGLYC 11/03/2017 PRABHJOT SEN MD, Ot Z80.3 FAMILY HISTORY OF MALIGNANT NEOPLASM OF 11/03/2017 PRABHJOT SEN MD, Ot Z87.19 PERSONAL HISTORY OF OTHER DISEASES OF 11/03/2017 PRABHJOT SEN MD, Ot Z87.440 PERSONAL HISTORY OF URINARY (TRACT) INFE 11/03/2017 PRABHJOT SEN MD, Ot Z90.49 ACQUIRED ABSENCE OF OTHER SPECIFIED PART 11/03/2017 PRABHJOT SEN MD, Ot Z90.89 ACQUIRED ABSENCE [...] UNSPECIFIED 11/05/2017 PRABHJOT SEN MD Ot Z79.84 KNOBBER (CURRENT) USE OF ORAL HYPOGLYC 11/05/2017 PRABHJOT SEN MD Ot Z80.3 FAMILY HISTORY OF MALIGNANT NEOPLASM OF 11/05/2017 PRABHJOT SEN MD, Ot Z87.19 PERSONAL HISTORY OF OTHER DISEASES OF TH 11/05/2017 PRABHJOT SEN MD, Ot Z87.440 PERSONAL HISTORY OF URINARY (TRACT) INFE 11/05/2017 PRABHJOT SEN MD, Ot Z90.49 ACQUIRED ABSENCE OF OTHER SPECIFIED PART 11/05/2017 PRABHJOT SEN MD, Ot Z90.89 ACQUIRED ABSENCE OF OTHER ORGANS 11/11/2017 BHAVNA BENITEZ INDUSTRIAL RELATIONS SPECIALIST Ot R05 COUGH 02/11/2018 VANBECELAERE, KARTHIK M WELLNESS ASSISTANT Ot 574.20 CHOLELITHIASIS NOS 02/11/2018 VANBECELAERE, KARTHIK M WELLNESS ASSISTANT Ot 789.06 ABDOMINAL PAIN, EPIGASTRIC 02/11/2018 JERALD CHAIREZ, PACO Hdz Ot V72.84 EXAM PRE-OPERATIVE NOS 02/11/2018 TAE JOHN L INDUSTRIAL RELATIONS SPECIALIST Ot K29.70 GASTRITIS, UNSPECIFIED, WITHOUT BLEEDING 02/11/2018 BHAVNA BENITEZ INDUSTRIAL RELATIONS SPECIALIST Ot R05 COUGH 03/02/2018 VANBECELAERE, KARTHIK M WELLNESS ASSISTANT Ot 574.20 CHOLELITHIASIS NOS 03/02/2018 VANBECELAERE, KARTHIK M WELLNESS ASSISTANT Ot 789.06 ABDOMINAL PAIN, EPIGASTRIC 03/02/2018 JERALD CHAIREZ, PACO Hdz Ot V72.84 EXAM PRE-OPERATIVE NOS 03/02/2018 JEANNA STRONGIN L INDUSTRIAL RELATIONS SPECIALIST Ot K29.70 GASTRITIS, UNSPECIFIED, WITHOUT BLEEDING 03/02/2018 BHAVNA BENITEZ R INDUSTRIAL RELATIONS SPECIALIST Ot R05 COUGH 03/02/2018 SHAQUILLE LEA MD [...] UNSPECIFIED 03/02/2018 SHAQUILLE LEA MD Ot Z79.84 KNOBBER (CURRENT) USE OF ORAL HYPOGLYC 03/02/2018 SHAQUILLE LEA MD T Ot Z80.3 FAMILY HISTORY OF MALIGNANT NEOPLASM [...] UNSPECIFIED 03/04/2018 SHAQUILLE LEA MD Ot Z79.84 ALF (CURRENT) USE OF ORAL HYPOGLYC 03/04/2018 SHAQUILLE [...] N83.292 OTHER OVARIAN CYST, LEFT SIDE 03/08/2018 SHAQUILLE LEA MD Ot R11.2 NAUSEA WITH VOMITING, UNSPECIFIED 03/08/2018 LEONORA CHAIREZ, SHAQUILLE Hahn Ot Z79.84 KNOBBER (CURRENT) USE OF ORAL HYPOGLYC 03/08/2018 SHAQUILLE LEA MD Ot Z80.3 FAMILY HISTORY OF MALIGNANT NEOPLASM OF 03/08/2018 HSAQUILLE LEA MD Ot Z87.19 PERSONAL HISTORY OF OTHER DISEASES OF 03/08/2018 SHAQUILLE LEA MD Ot Z87.440 PERSONAL HISTORY OF URINARY (TRACT) INFE 03/08/2018 SHAQUILLE LEA MD Ot Z90.89 ACQUIRED ABSENCE OF OTHER ORGANS 06/10/2018 GLORIA TEIXEIRA DO S Ot R06.09 OTHER FORMS OF DYSPNEA 07/07/2018 MILAGROS CASTILLO INDUSTRIAL RELATIONS SPECIALIST Ot G47.9 SLEEP DISORDER, UNSPECIFIED 07/07/2018 MILAGROS CASTILLO INDUSTRIAL RELATIONS SPECIALIST Ot R06.00 DYSPNEA, UNSPECIFIED 07/07/2018 MILAGROS CASTILLO INDUSTRIAL RELATIONS SPECIALIST Ot G47.9 SLEEP DISORDER, UNSPECIFIED 07/07/2018 MILAGROS CASTILLO INDUSTRIAL RELATIONS SPECIALIST Ot R06.00 DYSPNEA, UNSPECIFIED 07/19/2018 KARTHIK DANIEL WELLNESS ASSISTANT Ot 574.20 CHOLELITHIASIS NOS 07/19/2018 KARTHIK DANIEL WELLNESS ASSISTANT Ot 789.06 ABDOMINAL PAIN, EPIGASTRIC 07/19/2018 JERALD CHAIREZ, PACO M Ot V72.84 EXAM PRE-OPERATIVE NOS 07/19/2018 JOHN STRONG INDUSTRIAL RELATIONS SPECIALIST Ot K29.70 GASTRITIS, UNSPECIFIED, WITHOUT BLEEDING 07/19/2018 BHAVNA BENITEZ INDUSTRIAL RELATIONS SPECIALIST Ot R05 COUGH 07/19/2018 Ot J40 BRONCH ITIS, NOT SPECIFIED ACUTE OR CH 07/19/2018 GLORIA TEIXEIRA DO S Ot R06.09 OTHER FORMS OF DYSPNEA 07/19/2018 MILAGROS CASTILLO INDUSTRIAL RELATIONS SPECIALIST Ot G47.9 SLEEP DISORDER, UNSPECIFIED 07/19/2018 MILAGROS CASTILLO INDUSTRIAL RELATIONS SPECIALIST Ot R06.00 DYSPNEA, UNSPECIFIED 07/21/2018 MILAGROS CASTILLO INDUSTRIAL RELATIONS SPECIALIST Ot G47.9 SLEEP DISORDER, UNSPECIFIED 07/21/2018 MILAGROS CASTILLO INDUSTRIAL RELATIONS SPECIALIST Ot R06.00 DYSPNEA, UNSPECIFIED 07/25/2018 BHAVNA BENITEZ INDUSTRIAL RELATIONS SPECIALIST Ot R05 COUGH 09/15/2018 DINA GREEN MD Ot Z01.81 8 ENCOUNTER FOR OTHER PREPROCEDURAL EXAMIN 09/19/2018 DINA GREEN MD Ot Z01.81 8 ENCOUNTER FOR OTHER PREPROCEDURAL EXAMIN 09/19/2018 DINA GREEN MD, Ot Z01.81 8 ENCOUNTER FOR OTHER PREPROCEDURAL EXAMIN 09/21/2018 Ot J40 BRONCH ITIS, NOT SPECIFIED ACUTE OR CH 09/21/2018 DINA GREEN MD Ot E78.00 PURE HYPERCHOLESTEROLEMIA, UNSPECIFIED 09/21/2018 DINA GREEN MD Ot F32.9 MAJOR DEPRESSIVE DISORDER, SINGLE EPISOD 09/21/2018 DINA GREEN MD Ot F41.9 ANXIETY DISORDER, UNSPECIFIED 09/21/2018 DINA GREEN MD Ot K21.0 GASTRO-ESOPHAGEAL REFLUX DISEASE WITH ES 09/21/2018 DINA GREEN MD Ot K27.9 PEPTIC ULC, SITE UNSP, UNSP AC OR CHR 09/21/2018 DINA GREEN MD Ot K29.70 GASTRITIS, UNSPECIFIED, WITHOUT BLEEDING 09/21/2018 DINA GREEN MD Ot K44.9 DIAPHRAGMATIC HERNIA WITHOUT OBSTRUCTION 09/21/2018 DINA GREEN MD Ot K57.30 DVRTCLOS OF LG INT W/O PERFORATION OR AB 09/21/2018 DINA GREEN MD Ot K63.5 POLYP OF COLON 09/21/2018 DINA GREEN MD Ot Z79.84 ALF (CURRENT) USE OF ORAL HYPOGLYC 09/21/2018 DINA GREEN MD, Ot Z79.89 9 OTHER ALF (CURRENT) DRUG THERAPY 09/21/2018 DINA GREEN MD, Ot Z80.1 FAMILY HISTORY OF MALIG NEOPLASM OF TRAC 09/21/2018 DINA GREEN MD, Ot Z85.3 PERSONAL HISTORY [...] COLON 09/23/2018 DINA GREEN MD Ot Z79.84 KNOBBER (CURRENT) USE OF ORAL HYPOGLYC 09/23/2018 DINA GREEN MD Ot Z79.89 9 OTHER ALF (CURRENT) DRUG THERAPY 09/23/2018 DINA GREEN MD Ot Z80.1 FAMILY HISTORY OF MALIG NEOPLASM OF TRAC 09/23/2018 DINA GREEN MD Ot Z85.3 PERSONAL HISTORY OF MALIGNANT NEOPLASM O 09/27/2018 DINA GREEN MD, Ot E78.00 PURE HYPERCHOLESTEROLEMIA, UNSPECIFIED 09/27/2018 DINA GREEN MD Ot F32.9 MAJOR DEPRESSIVE DISORDER, SINGLE EPISOD 09/27/2018 DINA GREEN MD, Ot F41.9 ANXIETY DISORDER, UNSPECIFIED 09/27/2018 DINA GREEN MD Ot K21.0 GASTRO-ESOPHAGEAL REFLUX DISEASE WITH ES 09/27/2018 DINA GREEN MD Ot K27.9 PEPTIC ULC, SITE UNSP, UNSP AC OR CHR 09/27/2018 DINA GREEN MD Ot K29.70 GASTRITIS, UNSPECIFIED, WITHOUT BLEEDING 09/27/2018 DINA GREEN MD Ot K44.9 DIAPHRAGMATIC HERNIA WITHOUT OBSTRUCTION 09/27/2018 DINA GREEN MD, Ot K57.30 DVRTCLOS OF LG INT W/O PERFORATION OR AB 09/27/2018 DINA GREEN MD, Ot K63.5 POLYP OF COLON 09/27/2018 DINA GREEN MD, Ot Z79.84 KNOBBER (CURRENT) USE OF ORAL HYPOGLYC 09/27/2018 DINA GREEN MD, Ot Z79.89 9 OTHER ALF (CURRENT) DRUG THERAPY 09/27/2018 DINA GREEN MD, Ot Z80.1 FAMILY HISTORY OF MALIG NEOPLASM OF TRAC 09/27/2018 DINA GREEN MD, Ot Z85.3 PERSONAL HISTORY OF MALIGNANT NEOPLASM O 10/05/2018 GLORIA TEIXEIRA DO Ot R06.09 OTHER FORMS OF DYSPNEA 12/15/2018 NIKO MORAN W 272.4 OTHER AND UNSPECIFIED HYPERLIPIDEMIA 12/15/2018 NIKO MORAN W 401.0 MALIGNANT ESSENTIAL HYPERTENSION 12/15/2018 NIKO MORAN W 790.6 OTHER ABNORMAL BLOOD CHEMISTRY 12/15/2018 NIKO MORAN W E78.5 HYPERLIPIDEMIA, UNSPECIFIED 12/15/2018 NIKO MORAN W I10 ESSENTIAL (PRIMARY) HYPERTENSION 12/15/2018 NIKO MORAN W R73.9 HYPERGLYCEMIA, UNSPECIFIED 12/15/2018 W 272.4 OTHE R AND UNSPECIFIED HYPERLIPIDEMIA 12/15/2018 W 401.0 JADEN GNANT ESSENTIAL HYPERTENSION 12/15/2018 W 461.9 ACUT E SINUSITIS, UNSPECIFIED 12/15/2018 W 715.90 OST EOARTHROSIS, UNSPECIFIED WHETHER GENERALIZED OR LOCALIZED, INVOLVING UNSPECIFIED SITE 12/15/2018 W 790.6 OTHE R ABNORMAL BLOOD CHEMISTRY 12/15/2018 W E78.5 HYPE RLIPIDEMIA, UNSPECIFIED 12/15/2018 W I10 ESSENT IAL (PRIMARY) HYPERTENSION 12/15/2018 W J01.90 ACU TE SINUSITIS, UNSPECIFIED 12/15/2018 W M19.90 UNS PECIFIED OSTEOARTHRITIS, UNSPECIFIED SITE 12/15/2018 W R73.9 HYPE RGLYCEMIA, UNSPECIFIED 12/15/2018 NIKO MORAN W 272.4 OTHER AND UNSPECIFIED HYPERLIPIDEMIA 12/15/2018 NIKO MORAN W 401.0 MALIGNANT ESSENTIAL HYPERTENSION 12/15/2018 NIKO MORAN W 790.6 OTHER ABNORMAL BLOOD CHEMISTRY 12/15/2018 NIKO MORAN W E78.5 HYPERLIPIDEMIA, UNSPECIFIED 12/15/2018 NIKO MORAN W I10 ESSENTIAL (PRIMARY) HYPERTENSION 12/15/2018 NIKO MORAN R73.9 HYPERGLYCEMIA, UNSPECIFIED 02/03/2019 JERALD CHAIREZ, PACO Hdz Ot V72.84 EXAM PRE-OPERATIVE NOS 02/03/2019 JEANNA STRONGCASSIDY Lawrence INDUSTRIAL RELATIONS SPECIALIST Ot K29.70 GASTRITIS, UNSPECIFIED, WITHOUT BLEEDING 02/03/2019 ELI, BHAVNA R INDUSTRIAL RELATIONS SPECIALIST Ot R05 COUGH 02/03/2019 Ot J40 BRONCH ITIS, NOT SPECIFIED ACUTE OR CH 02/03/2019 GLORIA TEIXEIRA DO S Ot R06.09 OTHER FORMS OF DYSPNEA 02/03/2019 MILAGROS CASTILLO INDUSTRIAL RELATIONS SPECIALIST Ot G47.9 SLEEP DISORDER, UNSPECIFIED 02/03/2019 MILAGROS CASTILLO INDUSTRIAL RELATIONS SPECIALIST Ot R06.00 DYSPNEA, UNSPECIFIED 02/07/2019 W 491.9 UNSP ECIFIED CHRONIC BRONCHITIS 02/07/2019 W 786.05 FABRIZIO RTNESS OF BREATH 02/07/2019 W 786.2 COUGH 02/07/2019 W J42 UNSPEC IFIED CHRONIC BRONCHITIS 02/07/2019 W R05 COUGH 02/07/2019 W R06.02 FABRIZIO RTNESS OF BREATH 03/28/2019 JERALD CHAIREZ, PACO Hdz Ot V72.84 EXAM PRE-OPERATIVE NOS 03/28/2019 JOHN STRONG INDUSTRIAL RELATIONS SPECIALIST Ot K29.70 GASTRITIS, UNSPECIFIED, WITHOUT BLEEDING 03/28/2019 BUTCH BENITEZYSON R INDUSTRIAL RELATIONS SPECIALIST Ot R05 COUGH 03/28/2019 Ot J40 BRONCH ITIS, NOT SPECIFIED ACUTE OR CH 03/28/2019 GLORIA TEIXEIRA DO S Ot R06.09 OTHER FORMS OF DYSPNEA 03/28/2019 MILAGROS CASTILLO APRN Ot G47.9 SLEEP DISORDER, UNSPECIFIED 03/28/2019 MILAGROS CASTILLO APRN Ot R06.00 DYSPNEA, UNSPECIFIED 03/30/2019 JESSICA CHAIREZ, RANI Dowd Ot Z01.818 ENCOUNTER FOR OTHER PREPROCEDURAL EXAMIN 04/05/2019 RANI LOPEZ MD Ot E11.9 TYPE 2 DIABETES MELLITUS WITHOUT COMPLIC 04/05/2019 RANI LOPEZ MD Ot I1 0 ESSENTIAL (PRIMARY) HYPERTENSION 04/05/2019 RANI LOPEZ MD Ot J45.909 UNSPECIFIED ASTHMA, UNCOMPLICATED 04/05/2019 RANI LOPEZ MD Ot K21.9 GASTRO-ESOPHAGEAL REFLUX DISEASE WITHOUT 04/05/2019 RANI LOPEZ MD Ot K44.9 DIAPHRAGMATIC HERNIA WITHOUT OBSTRUCTION 04/05/2019 RANI LOPEZ MD Ot M22.42 CHONDROMALACIA PATELLAE, LEFT KNEE 04/05/2019 RANI LOPEZ MD Ot M23.322 [facility] MENISCUS DERANG, [facility] OF MEDIAL 04/05/2019 RANI LOPEZ MD Ot Z79.84 ALF (CURRENT) USE OF ORAL HYPOGLYC 04/05/2019 RANI LOPEZ MD Ot Z79.899 OTHER KNOBBER (CURRENT) DRUG THERAPY 04/11/2019 RANI LOPEZ MD Ot E11.9 TYPE 2 DIABETES MELLITUS WITHOUT COMPLIC 04/11/2019 RANI LOPEZ MD Ot I1 0 ESSENTIAL (PRIMARY) HYPERTENSION 04/11/2019 RANI LOPEZ MD Ot J45.909 UNSPECIFIED ASTHMA, UNCOMPLICATED 04/11/2019 RANI LOPEZ MD Ot K21.9 GASTRO-ESOPHAGEAL REFLUX DISEASE WITHOUT 04/11/2019 RANI LOPEZ MD Ot K44.9 DIAPHRAGMATIC HERNIA WITHOUT OBSTRUCTION 04/11/2019 RANI LOPEZ MD, Ot M22.42 CHONDROMALACIA PATELLAE, LEFT KNEE 04/11/2019 RANI LOPEZ MD Ot M23.322 [facility] MENISCUS DERANG, [facility] 04/11/2019 RANI LOPEZ MD Ot Z79.84 ALF (CURRENT) USE OF ORAL HYPOGLYC 04/11/2019 RANI LOPEZ MD Ot Z79.899 OTHER ALF (CURRENT) DRUG THERAPY 08/02/2019 RANI LOPEZ MD Ot Z01.818 ENCOUNTER FOR OTHER PREPROCEDURAL EXAMIN 08/09/2019 RANI LOPEZ MD Ot E78.5 HYPERLIPIDEMIA, UNSPECIFIED 08/09/2019 RANI LOPEZ MD Ot M94.261 CHONDROMALACIA, RIGHT KNEE 08/09/2019 RANI LOPEZ MD, Ot S83.241A OTH TEAR OF MEDIAL MENISCUS, CURRENT INJ 08/09/2019 RANI LOPEZ MD, Ot Z80.1 FAMILY HISTORY OF MALIG NEOPLASM OF TRAC 08/09/2019 RANI LOPEZ MD, Ot Z80.3 FAMILY HISTORY OF MALIGNANT NEOPLASM OF 08/09/2019 RANI LOPEZ MD Ot Z88.3 ALLERGY STATUS TO OTHER ANTI-INFECTIVE A 08/09/2019 RANI LOPEZ MD Ot Z90.49 ACQUIRED ABSENCE OF OTHER SPECIFIED PART 08/11/2019 RANI LOPEZ MD, Ot E78.5 HYPERLIPIDEMIA, UNSPECIFIED 08/11/2019 RANI LOPEZ MD Ot M94.261 CHONDROMALACIA, RIGHT KNEE 08/11/2019 RANI LOPEZ MD, Ot S83.241A OTH TEAR OF MEDIAL MENISCUS, CURRENT INJ 08/11/2019 RANI LOPEZ MD, Ot Z80.1 FAMILY HISTORY OF MALIG NEOPLASM OF TRAC 08/11/2019 RANI LOPEZ MD Ot Z80.3 FAMILY HISTORY OF MALIGNANT NEOPLASM OF 08/11/2019 RANI LOPEZ MD Ot Z88.3 ALLERGY STATUS TO OTHER ANTI-INFECTIVE A 08/11/2019 RANI LOPEZ MD Ot Z90.49 ACQUIRED ABSENCE OF OTHER SPECIFIED PART 10/30/2019 JERALD CHAIREZ, PACO Hdz Ot V72.84 EXAM PRE-OPERATIVE NOS 10/30/2019 JOHN STRONG INDUSTRIAL RELATIONS SPECIALIST Ot K29.70 GASTRITIS, UNSPECIFIED, WITHOUT BLEEDING 10/30/2019 BHAVNA BENITEZ R INDUSTRIAL RELATIONS SPECIALIST Ot R05 COUGH 10/30/2019 Ot J40 BRONCH ITIS, NOT SPECIFIED ACUTE OR CH 10/30/2019 GLORIA TEIXEIRA DO Ot R06.09 OTHER FORMS OF DYSPNEA 10/30/2019 MILAGROS CASTILLO APRN Ot G47.9 SLEEP DISORDER, UNSPECIFIED 10/30/2019 MILAGROS CASTILOL APRN Ot R06.00 DYSPNEA, UNSPECIFIED Procedures Code Description Performed By Per formed On 51.23 LAPA ROSCOPIC CHOLECYSTECTOMY 06/15/2013 Results Test Result Range Complete urinalysis with reflex to cultu re - 11/03/17 15:37 Urine color determination YELLOW NRG Urine clarity determination SLIGHTLY CLOUDY NRG Urine pH measurement by test strip 8 5-9 Specific gravity of urine by test strip 1.010 1.016-1.022 Urine protein assay by test strip, semi-quantitative 2+ NEGATIVE Urine glucose detection by automated test strip NE GATIVE NEGATIVE Erythrocytes detection in urine sediment by light micr oscopy NEGATIVE NEGATIVE Urine ketones detection by automated test strip 2+ NEGATIVE Urine nitrite detection by test strip NEGATIVE NEGATIVE Urine total bilirubin detection by test strip NEGA TIVE NEGATIVE Urine urobilinogen measurement by automated test strip (mass/volume) 4 mg/dL NORMAL Urine leukocyte esterase detection by dipstick 1+ NEGATIVE Automated urine sediment erythrocyte cou nt by microscopy (number/high power field) NONE NRG Automated urine sediment leukocyte count by microscopy (number/high power field) [HPF] NRG Bacteria detection in urine sediment by light microsco py MODERATE NRG Squamous epithelial cells detection in u rine sediment by light microscopy 10-25 NRG Crystals detection in urine sediment by light microsco py NONE NRG Casts detection in urine sediment by light microscopy NONE NRG Mucus detection in urine sediment by light microscopy SMALL NRG Complete urinalysis with reflex to culture NO NRG Complete blood count (CBC) with automate d white blood cell (WBC) differential - 11/03/17 15:43 Blood leukocytes automated count (number/volume) 9.0 10*3/uL 4.3-11.0 Blood erythrocytes automated count (number/volume) 5.33 10*6/uL 4.35-5.85 Venous blood hemoglobin measurement (mass/volume) 14.8 g/dL 11.5-16.0 Blood hematocrit (volume fraction) 42 % 35-52 Automated erythrocyte mean corpuscular volume 79 [ foz_us] 80-99 Automated erythrocyte mean corpuscular h emoglobin (mass per erythrocyte) 28 pg 25-34 Automated erythrocyte mean corpuscular h emoglobin concentration measurement (mass/volume) 35 g/dL 32-36 Automated erythrocyte distribution width ratio 13. 8 % 10.0- 14.5 Automated blood platelet count [...] 10*3 1.0-4.0 Blood monocytes automated count (number/volume) 0. 9 10*3 0.0-1.0 Automated eosinophil count 0.0 10*3/uL 0 .0-0.3 Automated blood basophil count (count/volume) 0.0 10*3/uL 0.0-0.1 Comprehensive metabolic panel - 11/03/17 15:43 Serum or plasma sodium measurement (moles/volume) 142 mmol/L 135-145 Serum or plasma potassium measurement (moles/volume) 3.6 mmol/L 3.6-5.0 Serum or plasma chloride measurement (moles/volume) 106 mmol/L 98-107 Carbon dioxide 21 mmol/L 21-32 Serum or plasma anion gap determination (moles/volume) 15 mmol/L 5-14 Serum or plasma urea nitrogen measurement (mass/volume ) 12 mg/dL 7-18 Serum or plasma creatinine measurement (mass/volume) 0.76 mg/dL 0.60-1.30 Serum or plasma urea nitrogen/creatinine mass ratio 16 NRG Serum or plasma creatinine measurement w ith calculation of estimated glomerular filtration rate > NRG Serum or plasma glucose measurement (mass/volume) 119 mg/dL 70-105 Serum or plasma calcium measurement (mass/volume) 9.4 mg/dL 8.5-10.1 Serum or plasma total bilirubin measurement (mass/volu me) 0.6 mg/dL 0.1-1.0 Serum or plasma alkaline phosphatase chitra surement (enzymatic activity/volume) 66 U/L 40-136 Serum or plasma aspartate aminotransfera se measurement (enzymatic activity/volume) 20 U/L 5-34 Serum or plasma alanine aminotransferase measurement (enzymatic activity/volume) 26 U/L 0-55 Serum or plasma protein measurement (mass/volume) 7.6 g/dL 6.4-8.2 Serum or plasma albumin measurement (mass/volume) 4.5 g/dL 3.2-4.5 Magnesium - 11/03/17 15:43 Magnesium 2.0 mg/dL 1.8-2.4 Serum or plasma amylase measurement (enz ymatic activity/volume) - 11/03/17 15:43 Serum or plasma amylase measurement (enzymatic activit y/volume) 26 U/L 25-125 Lipase - 11/03/17 15:43 Lipase 11 U/L 8-78 Complete blood count (CBC) with automate d white blood cell (WBC) differential - 03/02/18 10:40 Blood leukocytes automated count (number/volume) 9.9 10*3/uL 4.3-11.0 Blood erythrocytes automated count (number/volume) 5.65 10*6/uL 4.35-5.85 Venous blood hemoglobin measurement (mass/volume) 15.6 g/dL 11.5-16.0 Blood hematocrit (volume fraction) 44 % 35-52 Automated erythrocyte mean corpuscular volume 78 [ foz_us] 80-99 Automated erythrocyte mean corpuscular h emoglobin (mass per erythrocyte) 28 pg 25-34 Automated erythrocyte mean corpuscular h emoglobin concentration measurement (mass/volume) 35 g/dL 32-36 Automated erythrocyte distribution width ratio 14. 2 % 10.0- 14.5 Automated blood platelet count [...] 10*3 1.0-4.0 Blood monocytes automated count (number/volume) 0. 8 10*3 0.0-1.0 Automated eosinophil count 0.0 10*3/uL 0 .0-0.3 Automated blood basophil count (count/volume) 0.0 10*3/uL 0.0-0.1 Serum or plasma choriogonadotropin (preg lj test) detection - 03/02/18 10:40 Serum or plasma choriogonadotropin ( test) de tection NEGATIVE NEGATIVE Comprehensive metabolic panel - 03/02/18 10:40 Serum or plasma sodium measurement (moles/volume) 140 mmol/L 135-145 Serum or plasma potassium measurement (moles/volume) 3.5 mmol/L 3.6-5.0 Serum or plasma chloride measurement (moles/volume) 107 mmol/L 98-107 Carbon dioxide 20 mmol/L 21-32 Serum or plasma anion gap determination (moles/volume) 13 mmol/L 5-14 Serum or plasma urea nitrogen measurement (mass/volume ) 12 mg/dL 7-18 Serum or plasma creatinine measurement (mass/volume) 0.80 mg/dL 0.60-1.30 Serum or plasma urea nitrogen/creatinine mass ratio 15 NRG Serum or plasma creatinine measurement w ith calculation of estimated glomerular filtration rate > NRG Serum or plasma glucose measurement (mass/volume) 144 mg/dL 70-105 Serum or plasma calcium measurement (mass/volume) 9.9 mg/dL 8.5-10.1 Serum or plasma total bilirubin measurement (mass/volu me) 1.1 mg/dL 0.1-1.0 Serum or plasma alkaline phosphatase chitra surement (enzymatic activity/volume) 69 U/L 40-136 Serum or plasma aspartate aminotransfera se measurement (enzymatic activity/volume) 16 U/L 5-34 Serum or plasma alanine aminotransferase measurement (enzymatic activity/volume) 24 U/L 0-55 Serum or plasma protein measurement (mass/volume) 7.6 g/dL 6.4-8.2 Serum or plasma albumin measurement (mass/volume) 4.7 g/dL 3.2-4.5 Magnesium - 03/02/18 10:40 Magnesium 2.0 mg/dL 1.8-2.4 Lipase - 03/02/18 10:40 Lipase 15 U/L 8-78 Complete urinalysis with reflex to cultu re - 03/02/18 11:20 Urine color determination YELLOW NRG Urine clarity determination SLIGHTLY CLOUDY NRG Urine pH measurement by test strip 8 5-9 Specific gravity of urine by test strip 1.020 1.016-1.022 Urine protein assay by test strip, semi-quantitative 1+ NEGATIVE Urine glucose detection by automated test strip NE GATIVE NEGATIVE Erythrocytes detection in urine sediment by light micr oscopy NEGATIVE NEGATIVE Urine ketones detection by automated test strip 2+ NEGATIVE Urine nitrite detection by test strip NEGATIVE NEGATIVE Urine total bilirubin detection by test strip NEGA TIVE NEGATIVE Urine urobilinogen measurement by automated test strip (mass/volume) 4 mg/dL NORMAL Urine leukocyte esterase detection by dipstick 1+ NEGATIVE Automated urine sediment erythrocyte cou nt by microscopy (number/high power field) NONE NRG Automated urine sediment leukocyte count by microscopy (number/high power field) [HPF] NRG Bacteria detection in urine sediment by light microsco py FEW NRG Squamous epithelial cells detection in u rine sediment by light microscopy 2-5 NRG Crystals detection in urine sediment by light microsco py PRESENT NRG Casts detection in urine sediment by light microscopy NONE NRG Mucus detection in urine sediment by light microscopy NEGATIVE NRG Complete urinalysis with reflex to culture YES NRG Amorphous sediment detection in urine sediment by ligh t microscopy LARGE JESUS PHOSPHATE NRG Bacterial urine culture - 03/02/18 11:20 Bacterial urine culture SEE COMMEN NRG COLONY COUNT . NR Lipid Panel - 12/15/18 14:05 C/HDL 5.8 3.7-6.7 Cholesterol 261 mg/dL 100-240 HDL 45 mg/dL 30-85 LDL-Calculated 141 mg/dL 0-100 Trig 375 mg/dL 35-160 VLDL 75 mg/dL 0-42 Lab Card - 02/08/19 10:08 LabCard Specimen submitted to [facility]. Capillary blood glucose measurement by g lucometer (mass/volume) - 04/05/19 09:04 Capillary blood glucose measurement by glucometer (mas s/volume) 112 mg/dL 70-110 Methicillin resistant Staphylococcus aur eus (MRSA) screening culture - 04/05/19 09:06 Methicillin resistant Staphylococcus aureus (MRSA) scr eening culture NEG NR Lab Card - 07/12/19 15:45 LabCard Specimen submitted to [facility]. Capillary blood glucose measurement by g lucometer (mass/volume) - 08/09/19 10:15 Capillary blood glucose measurement by glucometer (mas s/volume) 119 mg/dL 70-110 Methicillin resistant Staphylococcus aur eus (MRSA) screening culture - 08/09/19 10:20 Methicillin resistant Staphylococcus aureus (MRSA) scr eening culture NEG NR Lab Card - 12/07/19 14:44 LabCard Specimen submitted to [facility]. Lab Card - 02/15/20 09:05 LabCard Specimen submitted to [facility]. Encounters ACCT No. Visit Date/Time Discharge Status Pt. Type Provider Facility Loc./Unit Complaint [id number] 04/18/2020 13:13:00 04/18/2020 23:59 :00 DIS Outpatient NIKO MORAN [id number] 03/21/2020 13:27:00 03/21/2020 23:59 :00 DIS Outpatient NIKO MORAN [id number] 02/15/2020 15:34:00 02/15/2020 23:59 :00 DIS Outpatient NIKO MORAN [id number] 02/15/2020 09:16:00 02/15/2020 23:59 :00 DIS Outpatient NIKO MORAN [id number] 12/07/2019 17:15:00 12/07/2019 23:59 :00 DIS Outpatient NIKO MORAN [id number] 12/07/2019 14:40:00 12/07/2019 23:59 :00 DIS Outpatient NIKO MORAN [id number] 07/12/2019 15:45:00 07/12/2019 23:59: 00 DIS Outpatient NIKO MORAN [id number] 07/12/2019 10:42:00 07/12/2019 23:59: 00 DIS Outpatient NIKO MORAN [id number] 02/08/2019 10:07:00 02/08/2019 23:59: 00 DIS Outpatient NIKO MORAN [id number] 12/15/2018 17:27:00 12/15/2018 23:59: 00 DIS Outpatient NIKO MORAN [id number] 02/07/2019 13:30:00 Document Registration [id number] 12/15/2018 13:30:00 Document Registration [id number] 10/06/2019 09:45:00 10/06/2019 23:59:5 9 CLS Outpatient ROXANNE CARLITOBERTAI [facility] [id number] 12/15/2018 17:27:00 Document Registration [id number] 08/09/2019 09:46:00 15:20:00 DIS Outpatient RANI LOPEZ MD [facility] RIGHT KNEE MENISCAL TEAR/CHONDROMALACIA PATELLA [id number] 08/02/2019 10:56:00 11:10:00 DIS Outpatient RANI LOPEZ MD [facility] PREOP RIGHT KNEE MENISCAL TEAR/CHONDROMALACIA PATELLA [id number] 04/05/2019 08:31:00 019 13:25:00 DIS Outpatient JESSICA CHAIREZ, RANI Dowd [facility] LEFT KNEE MEDIAL MENIS CUS TEAR [id number] 03/30/2019 05:34:00 019 13:19:00 DIS Outpatient RANI LOPEZ MD [facility] PREOP LEFT KNEE MEDIAL MENIS CUS TEAR [id number] 09/21/2018 09:10:00 018 12:15:00 DIS Outpatient DINA GREEN MD [facility] ENDO COLON MASS [id number] 09/19/2018 11:00:00 018 11:38:00 DIS Outpatient DINA GREEN MD [facility] PREOP COLONOSCOPY [id number] 07/05/2018 12:58:00 018 23:59:59 CLS Outpatient MILAGROS ACSTILLO [employer] [facility] CARD SLEEP DISORDER [id number] 05/23/2018 14:58:00 018 23:59:59 CLS Outpatient ORENDTEVIN DOGLORIA S [facility] RT DYSPNEA [id number] 03/02/2018 09:55:00 018 16:17:00 DIS Emergency SHAQUILLE LEA MD [facility] ER ABD PAIN [id number] 11/03/2017 14:17:00 018 18:52:00 DIS Emergency PRABHJOT SEN MD [facility] ER GASTRITIS/N/V/D [id number] 11/02/2017 10:26:00 018 23:59:59 CLS Outpatient BHAVNA BENITEZ [employer] [facility] RAD COUGH,SOB [id number] 01/10/2016 06:44:00 016 23:59:59 CLS Outpatient JOHN STRONG [employer] [facility] CARD NAUSEA,VOMITTIN G, GASTROPARESIS [id number] 12/22/2015 09:18:00 12:53:00 DIS Emergency KATE UMANZOR APRN [facility] ER R ARM TINGLING [id number] 12/20/2015 18:11:00 016 20:52:00 DIS Emergency PRABHJOT SEN MD [facility] ER ABD PAIN [id number] 12/04/2015 10:42:00 016 14:24:00 DIS Emergency KATE UMANZOR APRN [facility] ER CHEST PAIN [id number] 11/03/2014 17:42:00 015 17:45:00 DIS Inpatient ROMÁNNDKAYLEY ABARCA DOQUELINE S [facility] SURGICAL INTRACTABLE NAUSEA,VOMITING;GASTRITIS [id number] 10/29/2014 17:45:00 12:43:00 DIS Outpatient [facility];NAUSEA AND VOMITING [id number] 10/29/2014 14:52:00 015 23:59:59 CLS Outpatient JERALD CHAIREZ, PACO Hdz [facility] PREOP NAUSEA; ABD. PAIN [id number] 10/28/2014 12:48:00 015 18:45:00 DIS Emergency SHAQUILLE LEA MD [facility] ER VOMITING [id number] 06/13/2013 15:54:00 013 10:37:00 DIS Inpatient SANDY MOULTON GLORIA S [facility] SURGICAL ACUTE CHOLECYSTITIS,ABD PAIN,INTRACTABLE NAUSEA,VO [id number] 06/11/2013 15:44:00 013 20:43:00 DIS Emergency SAUL FRASER [facility] ER ABD PAIN [id number] 06/09/2013 08:49:00 013 23:59:59 CLS Outpatient KARTHIK DANIEL [facility] RAD EPIGASTRIC GOSIA N [id number] 05/26/2013 13:42:00 23:59:59 CLS Outpatient [id number] 03/22/2013 14:09:00 23:59:59 CLS Outpatient [id number] 02/03/2013 08:59:00 23:59:59 CLS Outpatient [id number] 05/12/2018 07:49:00 Document Registration [id number] 10/22/2014 07:37:00 Document Registration [id number] 10/22/2014 07:37:00 Document Registration [id number] 10/02/2009 12:59:00 Document Registration 05/24/18 11/16/2018 09:57:17 11/16/2018 23:5 9:59 CLS Outpatient Gloria Teixeira
== END 2020-05-02 17:53 | disposition home or self-care (01) ==
LOC: EDUNIT# 14:59 → ER 15:03
DX: R07.89 Other chest pain (principal); I10 Essential (primary) hypertension; J45.909 Unspecified asthma, uncomplicated; E66.9 Obesity, unspecified; F41.9 Anxiety disorder, unspecified; K21.0 Gastro-esophageal reflux disease with esophagitis; E11.9 Type 2 diabetes mellitus without complications; F32.9 Major depressive disorder, single episode, unspecified; Z80.3 Family history of malignant neoplasm of breast; Z88.6 Allergy status to analgesic agent; Z79.84 Long term (current) use of oral hypoglycemic drugs; Z68.42 Body mass index [BMI] 45.0-49.9, adult
CPT/HCPCS: 36415; 71045; 80053; 83690; 83735; 83874; 83880; 84484; 85025; 85379; 85610; 85730; 93005; 93041

== ENCOUNTER → 2023-01-19 | Outpatient (CLI) | payer BC ==
[~2023-01-19] MED LIST changes: +ALBU8.5H6 IH; +ESCI20TA39 PO; -ESCI20TA45 PO; +MONT-40 PO; -MONT10TA26 PO; -PANT40TA3 PO; +PANT40TA52 PO; -RT-ALBUINH IH
--- NOTE | 2023-01-19 16:37 | Diagnostic Imaging Report ---
INDICATION: Low back pain, fall. TIME OF EXAM: 2:02 PM. TECHNIQUE: Three views of the lumbar spine were obtained. FINDINGS: The curvature and alignment are normal. There does appear to be superior endplate compression involving the L1 and L2 vertebral bodies, age indeterminate. The remaining lumbar vertebrae show normal stature. There is generalized lumbar spondylosis with variable disc space narrowing noted. IMPRESSION: Superior endplate fractures of the L1 and L2 vertebral bodies with slight compression. Acuity is indeterminate. If there is concern for acuity, MRI would be useful for further evaluation. Dictated by: Dictated on workstation # [id number]
--- NOTE | 2023-01-19 16:38 | Diagnostic Imaging Report ---
INDICATION: Fall with right foot pain. TIME OF Exam: 2:06 PM. TECHNIQUE: Three views of the right foot were obtained. FINDINGS: There are degenerative changes at the 1st MTP joint. The metatarsals appear to be intact. The phalanges are intact. The midfoot and hindfoot are unremarkable apart from a large plantar calcaneal spur. No fractures are seen. IMPRESSION: Chronic changes. No acute bony abnormality is detected. Dictated by: Dictated on workstation # [id number]
== END ==
LOC: RAD 13:30
PROVIDERS: ATTEND Family Medicine
DX: Z12.31 Encounter for screening mammogram for malignant neoplasm of breast (principal); S32.010A Wedge compression fracture of first lumbar vertebra, initial encounter for closed fracture; S32.020A Wedge compression fracture of second lumbar vertebra, initial encounter for closed fracture; M79.671 Pain in right foot; W19.XXXA Unspecified fall, initial encounter
CPT/HCPCS: 72100; 73630

== ENCOUNTER → 2023-02-03 | Outpatient (CLI) | payer BC ==
--- NOTE | 2023-02-04 08:50 | Diagnostic Imaging Report ---
INDICATION: Routine screening. Comparison is made with prior mammogram from 06/16/2018 and 03/19/2017. 2-D and 3-D bilateral screening mammography was performed with CAD. CAD is utilized. The current study was also evaluated with a Computer Aided Detection (CAD) system. Scattered fibroglandular densities are identified bilaterally. A benign-appearing nodular densities in both breasts appears stable. No spiculated mass or malignant-appearing microcalcifications are seen. Axillae are unremarkable. IMPRESSION: BI-RADS Category 2 No mammographic features suspicious for malignancy are identified. ACR BI-RADS Category 2: Benign findings. Result letter will be mailed to the patient. Note: At least 10% of breast cancer is not imaged by mammography. Dictated by: Dictated on workstation # [id number]
== END ==
LOC: RAD 15:00
PROVIDERS: ATTEND Family Medicine
DX: Z12.31 Encounter for screening mammogram for malignant neoplasm of breast (principal)
CPT/HCPCS: 77063; 77067